=== PATIENT | male | born 1965 | race African-American/Black ===

== ENCOUNTER 2016-10-27 09:06 | Observation (INO) | payer OTHER ==
[~2016-10-27] VITALS: Ht 190.5 cm; Wt 138.8 kg
[~2016-10-27 09:06] MED LIST: AMLODIPINE BESY10 M1 PO; AMLODIPINE BESYL5 M1 PO; BYETTA10 MCG/0.0 SC; GABAPENTIN100 M2 PO; JANUVIA100 M1 PO; LISINOPRIL10 M1 PO; LO-DOSE ASPIRIN81 MG PO; METFORMIN HCL1000 M1 PO; NORVASC2.5 M1 PO; PRAVASTATIN SOD20 M2 PO; SERTRALINE HCL50 MG PO; VITAMIN D2000 UNIT PO; VITAMIN D250000 UNIT PO
--- NOTE | 2016-10-27 09:21 | ED CARDIAC/CP/PALPITATIONS ---
See Addendum History of Present Illness General Chief Complaint: Chest Pain Stated Complaint: CHEST PAIN,DIZZY,SOB Source: patient Exam Limitations: no limitations Allergies Coded Allergies: lisinopril (Severe, ANGIO EDEMA AND LIP SWELLING 05/19/16) atorvastatin (From LIPITOR) (Intermediate, TIRED AND ATTACKS MY BLOOD CELLS 12/30) Triage Note: PT PRESENTS TO ER FOR CHEST PAIN AND SOB. PT ALSO C/O OF DIZZINESS Triage Nurses Notes Reviewed? yes Onset: Gradual Duration: intermittent, months Timing: recent history Quality/Severity: moderate, severe Location: central Radiation: shoulders Activities at Onset: none HPI: 51-year-old male comes into emergency room with complaints of left-sided chest pain has been going on intermittently for the past 3 months. Pain is pleuritic and sharp. Patient reports some associated arm pain at times. Patient has a history of previous ND. Denies any vomiting or diaphoresis. Denies any other associated symptoms. Pain is exertional and worse with any type of ambulation and especially going up stairs. Patient gets associated lightheaded dizziness. (CORINE BROOKE,CARLOS) Vital Signs & Intake/Output Vital Signs & Intake/Output Vital Signs Date Time Temp Pulse Resp B/P Pulse O2 O2 Flow FiO2 Ox Delivery Rate 10/27 1117 85 20 100/00 98 Nasal 2.0L Cannula 10/27 1045 98 Nasal 2.0L Cannula 10/27 1028 81 20 130/100 96 Nasal 2.0L Cannula 10/27 0923 97.6 99 20 132/90 97 Room Air Reconcile Medications Amlodipine Besylate 10 MG TABLET 1 TAB PO DAILY BLOOD PRESSURE Aspirin (Lo-Dose Aspirin EC) 81 MG TABLET. 1 TAB PO D HEART HEALTH ( Reported) Cholecalciferol (Vitamin D3) (Vitamin D) 2,000 UNIT CAPSULE 1 CAP PO DAILY SUPPLEMENT (Reported) Exenatide (Byetta) 10 MCG/0.04 ML PEN.INJCTR 10 MCG SC BID DIABETES (Reported ) Gabapentin 100 MG CAPSULE 1 CAP PO TID PERIPERAL NEUROPATHY (Reported) Gemfibrozil 600 MG TABLET 1 TAB PO BID CHOLESTEROL (Reported) Insulin Glargine,Hum.rec.anlog (Lantus Solostar) 100 UNIT/ML (3 ML) INSULN.PEN 10 UNIT SC QPM DIABETES (Reported) Pravastatin Sodium 20 MG TABLET 1 TAB PO DAILY CHOLESTEROL (Reported) Sertraline HCl 50 MG TABLET 1 TAB PO DAILY DEPRESSION (Reported) (ROGER MCKINNON,JONATHAN) Past History Travel History Traveled to [place] past 21 day No Medical History Any Pertinent Medical History? 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 No (CARLOS DUBOSE) Review of Systems Review of Systems Constitutional: Reports: no symptoms. EENTM: Reports: no symptoms. Respiratory: Reports: see HPI. Cardiovascular: Reports: see HPI. GI: Reports: no symptoms. Genitourinary: Reports: no symptoms. Musculoskeletal: Reports: no symptoms. Skin: Reports: no symptoms. Neurological/Psychological: Reports: no symptoms. Hematologic/Endocrine: Reports: no symptoms. Immunologic/Allergic: Reports: no symptoms. All Other Systems: Reviewed and Negative (CARLOS DUBOSE) Physical Exam Physical Exam General Appearance: well developed/nourished, alert, awake, mild distress Head: atraumatic, normal appearance Eyes: Bilateral: normal appearance, EOMI. Ears, Nose, Throat: normal pharynx, normal ENT inspection Neck: normal inspection, full range of motion Respiratory: normal breath sounds, no respiratory distress Cardiovascular: regular rate/rhythm Back: normal inspection Extremities: normal inspection, normal range of motion Neurologic/Psych: awake, alert, oriented x 3, normal gait, normal mood/affect Skin: intact, normal color Core Measures ACS in differential dx? No Severe Sepsis Present: No Septic Shock Present: No (ACRLOS DUBOSE) Progress Differential Diagnosis: AMI, aortic dissection, atrial fibrillation, CHF/pulm edema, hyperthyroid, hyperventilation, intracranial hemorrhage, musculoskeletal pain, myocarditis, pancreatitis, pericarditis, pneumonia, pneumothorax, pulmonary embolism, PUD/GERD, PVCs/PACs, respiratory failure, rib fracture, sepsis, unstable angina Plan of Care: Orders Procedure Date/time Status Heart Healthy Diet 10/27 D Active Patient Data 10/[address] CHEST WO IV CONTRAST 10/27 1139 Active Vital Signs 10/27 1127 Active Code Status 10/[address] in observation 10/27 1122 Active Add-on Test (ER Only) 10/27 1028 Active EKG 10/27 1026 Active D-DIMER 10/27 09 Complete Intake & Output 10/27 922 Active Telemetry/Ob Tech 10/27 921 Active URINALYSIS 10/27 918 Complete TROPONIN LEVEL 10/27 918 Complete PARTIAL THROMBOPLASTIN TIME 10/27 918 Complete PROTHROMBIN TIME 10/27 918 Complete LIPID PANEL 10/27 918 Complete COMPREHENSIVE METABOLIC PANEL 10/27 918 Complete CBC WITHOUT DIFFERENTIAL 10/27 918 Complete EKG 10/27 906 Active Laboratory Tests 10/27/16 1115: Anion Gap 16, Estimated GFR 49 L, BUN/Creatinine Ratio 17.3, Glucose 360 H, Calcium 9.9, Total Bilirubin 0.5, AST 24, ALT 30, Alkaline Phosphatase 134 H, Troponin I < 0.01, Total Protein 7.4, Albumin 4.2, Globulin 3.2, Albumin/ Globulin Ratio 1.3, Triglycerides 190 H, Cholesterol 210 H, LDL Cholesterol, Calc 131 H, HDL Cholesterol 41, Cholesterol/HDL Ratio 5.1 H 10/27/16 0948: Urine Color YEL, Urine Clarity CLEAR, Urine pH 6.0, Ur Specific Cedar 1.020, Urine Protein TRACE H, Urine Ketones NEG, Urine Nitrite NEG, Urine Bilirubin NEG, Urine Urobilinogen 0.2, Ur Leukocyte Esterase NEG, Ur Microscopic SEDIMENT EXAMINED, Urine WBC RARE, Ur Epithelial Cells FEW, Urine Hemoglobin NEG, Urine Glucose >=1000 H 10/27/16 0926: PT 12.9 H, INR 1.23 H, APTT 35, D-Dimer 213, CBC w Diff NO MAN DIFF REQ, RBC 5.63, MCV 82.0, MCH 26.7 L, RDW 13.0, MPV 9.4, Gran % 44.4, Lymphocytes % 47.2, Monocytes % 3.7, Eosinophils % 1.8, Basophils % 2.9 H, Absolute Granulocytes 3.5, Absolute Lymphocytes 3.7 H, Absolute Monocytes 0.3, Absolute Eosinophils 0.1, Absolute Basophils 0.2, PUBS MCHC 32.6 L Diagnostic Imaging: Viewed by Me: Radiology Read. Discussed w/RAD: Radiology Read. Initial ED EKG: normal intervals, normal p-waves, normal sinus rhythm, rate (82) Repeat EKG: unchanged (CARLOS DUBOSE) Departure Departure Condition: Stable Referrals: LEI CORTES APRN (PCP/Family) Departure Forms: Customer Survey General Discharge Information (CARLOS DUBOSE) Departure Time of Disposition: 1125 Disposition: STILL A PATIENT Clinical Impression Primary Impression: Unstable angina Observation Note Spoke With: WATSON MCKINNON,KARLO Physician Advisor Notified: FELICIANO MCKINNON,ANIYAH Esparza Place Patient In: Non-ED OBS Care Area Rationale for Observation: My rational for observation is as follows [TELE MONITOR, SERIAL EKG, SERIAL TROPONIN, CARDIOLOGY CONSULT, CONSIDER ECHOCARDIOGRAM, STRESS TEST]. PA/VAMP STITCHER Co-Sign Statement Statement: ED Attending supervision documentation- [X] I saw and evaluated the patient. I have also reviewed all the pertinent lab results and diagnostic results. I agree with the findings and the plan of care as documented in the PA's/VAMP STITCHER's documentation. [X] I have reviewed the ED Record and agree with the PA's/VAMP STITCHER's documentation. [] Additions or exceptions (if any) to the PAs/VAMP STITCHER's note and plan are summarized below: [] (ROGER MCKINNON,JONATHAN) Critical Care Note Critical Care Note Critical Care Time: 30-74 min (CARLOS DUBOSE)
[2016-10-27 09:36] LABS: ABSOLUTE BASOPHIL COUNT 0.2 /CUMM (0.0-0.2); ABSOLUTE EOSINOPHIL COUNT 0.1 /CUMM (0.0-0.7); ABSOLUTE GRANULOCYTE CT 3.5 /CUMM (1.4-6.5); ABSOLUTE LYMPH COUNT 3.7 /CUMM (1.2-3.4); ABSOLUTE MONOCYTE COUNT 0.3 /CUMM (0.10-0.60); BASOPHIL % 2.9 % (0.0-2.0); EOSINOPHIL % 1.8 % (0-5); GRANULOCYTE % 44.4 % (42.2-75.2); HEMATOCRIT 46.2 % (42-52); MEAN CORPUSCULAR HGB 26.7 PG (27.0-31.0); MEAN CORPUSCULAR HGB CONC 32.6 G/DL (33.0-37.0); MEAN PLATELET VOLUME 9.4 FL (7.4-10.4); RED BLOOD CELL CT 5.63 /CUMM (4.70-6.10); WHITE BLOOD CELL COUNT 7.8 /CUMM (4.8-10.8)
[2016-10-27 09:52] LABS: PT 12.9 SEC (9.4-12.5); PTT 35 SEC (25-37)
[2016-10-27 09:53] LABS: PLATELET COUNT 429 /CUMM (130-400)
[2016-10-27] MEDS ORDERED: GEMFIBROZIL600 M1 PO (09:55)
[2016-10-27] MEDS ORDERED: LANTUS SOL100 UNIT/1 SC (09:56)
--- NOTE | 2016-10-27 10:18 | RADIOLOGY REPORT ---
EXAMINATION: XR CHEST CLINICAL INFORMATION: Chest pain COMPARISON: Chest x-ray 05/19/2016 TECHNIQUE: PA and lateral views of the chest were obtained. Examination mildly suboptimal secondary to patient body habitus. FINDINGS: The cardiac silhouette is stable in size. Minimal elevation of the right hemidiaphragm. The lungs are adequately aerated. No focal consolidation. No pleural effusion [id number] degenerative changes of the spine. IMPRESSION: No acute cardiopulmonary pathology.
--- NOTE | 2016-10-27 11:25 | Cons- Cardiology ---
PANKAJ MCKINNON,NAOMI Ramirez 10/27/16 1120: General Information and HPI Consulting Request Date of Consult: 10/27/16 Requested By: CARLOS POOL PA-C Reason for Consult: Recurrent chest pain. Source of Information: patient, old records Exam Limitations: poor historian History of Present Illness: Mr. Braxton Fleming is a 51-year-old -Chinese male with a history of obesity, hypertension, dyslipidemia, diabetes mellitus (insulin requiring), chronic kidney disease, previously documented nephrolithiasis, diverticular disease, previous syncope, anxiety disorder, and a vague history of "heart attack" around 2001 who presented this morning with recurrent, frequent ("daily ") episodes of "sharp", severe ("/"), left upper abdominal/left chest pain. On Tuesday (10/22/2016) he did some snow shoveling for neighbors and has had similar, but constant pain since that time. He related these complaints to his aunt and she insisted he seek emergency department evaluation. We previously evaluated Mr. Fleming in the ED (07/21-07/22/2015) for atypical chest discomfort without significant electrocardiographic changes or cardiac enzyme elevation to suggest a cardiac etiology. He was also subsequently admitted to following an episode of angioedema while on VIKAS inhibitor (lisinopril) therapy for his hypertension (05/19-05/22/2016). He did undergo an imaging stress test on 04/10/2013 that revealed no evidence of ischemia. Fixed inferoapical and inferior wall defects were observed consistent with old myocardial infarction. He reports being compliant with outpatient management and feeling generally well until yesterday. Additional past history includes previous bradycardia during his 2014 admission for atypical chest pain felt secondary to pain medications. At that time Mr. fleming also stated that his heart "stopped 3 times" during his "heart attack" in 2001. He was also told he had no heart muscle damage and did not undergo cardiac catheterization. We had planned to see Mr. fleming on an outpatient basis, but he never followed up. Review of Systems Review of Systems: A 14 point system review was obtained, and was noncontributory other than for the fact that the patient wears glasses. 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 Ambulation: independent IADLs Independent: shopping, housework, finances. Exam & Diagnostic Data Vital Signs and I&O Vital Signs Date Time Temp Pulse Resp B/P Pulse O2 O2 Flow FiO2 Ox Delivery Rate 10/27 1117 85 20 100/00 98 Nasal 2.0L Cannula 10/27 1045 98 Nasal 2.0L Cannula 10/27 1028 81 20 130/100 96 Nasal 2.0L Cannula 10/27 0923 97.6 99 20 132/90 97 Room Air Intake & Output 10/27 1600 10/27 0800 10/27 0000 10/26 1600 10/26 0800 10/26 0000 Intake Total Output Total Balance Patient 310 lb Weight Physical Exam: Well-developed, overweight middle-aged -Chinese male in no acute distress with nasal oxygen in place. Vital signs: See above. HEENT: Normocephalic, atraumatic, EOMI, moist mucous membranes. Neck: No JVD, no bruits. Lungs: Clear to auscultation bilaterally. Heart: S1, S2 with no murmur, gallop, rub appreciated. PMI fifth ICS at MCL. Abdomen: Soft, nontender, positive bowel sounds. Extremities: No cyanosis, clubbing, edema. Peripheral pulses: Symmetrical and intact. Diagnostic Data EKG Results (10/27/2016) sinus rhythm, probable old inferior wall, and poor precordial R- wave progression. Minor changes when compared to previous tracing (05/19/2016). CXR Results (10/27/2016) no acute process. Other Results Chest CT (10/27/2016) No evidence of pneumonia, pleural effusion or lymphadenopathy. Subendocardial fat deposition at the apex of the left ventricle from remote myocardial infarction. No acute rib pathology. 0.5 cm noncalcified nodule is present within the left lower lobe. For a low-risk patient, chest CT follow- up may be obtained in 12 months whereas a high risk patient may require chest CT follow-up in 6 months. Diffuse hepatic steatosis. Assessment/Plan Assessment/Plan Mr. Fleming is a middle-aged -Chinese male with a history of obesity, hypertension, dyslipidemia, diabetes mellitus (insulin requiring), chronic kidney disease, previously documented nephrolithiasis, diverticular disease, previous syncope, anxiety disorder, and a vague history of "heart attack" around 2001 who presented this morning with constant and atypical left chest/upper abdominal pain since shoveling snow this passed Tuesday (10/22/2016). Although the pain has atypical features, given his risk equivalent/risk factors for coronary artery disease a period of telemetry observation is reasonable. Recommendations: * Telemetry observation, follow-up electrocardiograms, follow-up troponins. * Continue present cardiac regimen. * Given the atypical nature of his presentation, would hold off on IV heparin at this juncture. * Schedule for an imaging stress test. * Consider endocrine consultation to optimize control of his diabetes mellitus. * DVT prophylaxis. Further recommendations will follow, Thank you. Consult Acknowledgment - Thank you for your consult request. ROGER MCKINNON,JONATHAN 10/27/16 1125: General Information and HPI Allergies/Medications Allergies: Coded Allergies: lisinopril (Severe, ANGIO EDEMA AND LIP SWELLING 05/19/16) atorvastatin (From LIPITOR) (Intermediate, TIRED AND ATTACKS MY BLOOD CELLS 12/30) Home Med List: Amlodipine Besylate 10 MG TABLET 1 TAB PO DAILY BLOOD PRESSURE Aspirin (Lo-Dose Aspirin EC) 81 MG TABLET. 1 TAB PO D HEART HEALTH ( Reported) Cholecalciferol (Vitamin D3) (Vitamin D) 2,000 UNIT CAPSULE 1 CAP PO DAILY SUPPLEMENT (Reported) Exenatide (Byetta) 10 MCG/0.04 ML PEN.INJCTR 10 MCG SC BID DIABETES (Reported ) Gabapentin 100 MG CAPSULE 1 CAP PO TID PERIPERAL NEUROPATHY (Reported) Gemfibrozil 600 MG TABLET 1 TAB PO BID CHOLESTEROL (Reported) Insulin Glargine,Hum.rec.anlog (Lantus Solostar) 100 UNIT/ML (3 ML) INSULN.PEN 10 UNIT SC QPM DIABETES (Reported) Pravastatin Sodium 20 MG TABLET 1 TAB PO DAILY CHOLESTEROL (Reported) Sertraline HCl 50 MG TABLET 1 TAB PO DAILY DEPRESSION (Reported) Exam & Diagnostic Data Vital Signs and I&O Vital Signs Date Time Temp Pulse Resp B/P Pulse O2 O2 Flow FiO2 Ox Delivery Rate 10/27 1117 85 20 100/00 98 Nasal 2.0L Cannula 10/27 1045 98 Nasal 2.0L Cannula 10/27 1028 81 20 130/100 96 Nasal 2.0L Cannula 10/27 0923 97.6 99 20 132/90 97 Room Air Intake & Output 10/27 1600 10/27 0800 10/27 0000 10/26 1600 10/26 0800 10/26 0000 Intake Total Output Total Balance Patient 310 lb Weight Assessment/Plan Consult Acknowledgment - Thank you for your consult request.
--- NOTE | 2016-10-27 12:27 | CT SCAN REPORT ---
EXAMINATION: CT CHEST WITHOUT CONTRAST CLINICAL INFORMATION: Left-sided rib pain. COMPARISON: CXR from 10/27/2016. Abdomen CT from 06/29/2014. TECHNIQUE: Multidetector volumetric CT imaging of the chest was done. Axial MIP volume rendering provided. Sagittal and coronal reformatted images were obtained. DLP: 1045. mGy-cm. FINDINGS: Lungs and pleura: Trachea and central airways are widely patent and normal in caliber. No evidence of endobronchial nodule, mucous plugging or bronchiectasis. 0.2 cm calcified granulomas present within the lingula (image 259, series 4). There is a linear opacity of scarring or discoid atelectasis within the lingula. A noncalcified ovoid, smoothly marginated nodule with average diameter of 0.5 cm is present within the medial basal segment of the left lower lobe (image 300, series 4). This portion of the lung is not included in the [id number] on the abdomen CT from 06/29/2014. No pulmonary mass, consolidation, pleural effusion or pneumothorax. Mediastinum: The esophagus and thyroid gland are unremarkable. The heart size is normal. There is subendocardial fat deposition at the apex of the left ventricle, indicative of remote myocardial infarction. There is moderate atherosclerotic calcification of the left anterior descending coronary artery. Pulmonary arteries are normal in caliber. There is mild atherosclerotic calcification of the aorta. No pericardial effusion. Lymphatics: No pathologic sized axillary, hilar or mediastinal lymph nodes. Upper abdomen: Diffuse hepatic steatosis. Adrenal glands are unremarkable. Chest wall and bones: Symmetric appearance of mild gynecomastia. No acute findings within the degenerated thoracic spine. There is multilevel disc space narrowing, vacuum disc phenomenon and osteophyte formation of the thoracic spine. No suspicious bone lesions. No chest wall mass. No acute, displaced rib fracture or destructive rib lesion. IMPRESSION: 1. No evidence of pneumonia, pleural effusion or lymphadenopathy. 2. Subendocardial fat deposition at the apex of the left ventricle from remote myocardial infarction. 3. No acute rib pathology. 4. 0.5 cm noncalcified nodule is present within the left lower lobe. For a low-risk patient, chest CT follow-up may be obtained in 12 months whereas a high risk patient may require chest CT follow-up in 6 months. 5. Diffuse hepatic steatosis.
--- NOTE | 2016-10-27 13:22 | History & Physical ---
DALLAS GARCIA 10/27/16 1322: General Information and HPI MD Statement: I have seen and personally examined SOBIA TAMEZ and documented this H&P. The patient is a 51 year old M who presented with a patient stated chief complaint of [left upper quadrant abdominal pain]. Source of Information: patient, old records Exam Limitations: poor historian History of Present Illness: Patient is a 51 year old male with PMH of CKD, DM on insulin since 1.5 month, previous OK in 2011, agioedema secondary to lisiopril came with chief complain of chest pain. It is located in the left upper quadrant, pain is sharp/ pinching intermittently and pressure like for most of the time. Patient states that it started in june but worsened over past 2 months. It is also associated with exertional shortness of breath and intermittent cough with no sputum. Patient states that the pain and SOB interfers with his sleep. He has been suggested to have a sleep study done but never did it. Patient also reports of decreased apetite since yesterday, and also feels dizzy. Patient states that his pain is worsesned by eating food. He has a remote hx of acid reflux. denies any nausea, vomiting and has regular bowel movement. Patient is a diabetic since 13 years, ortiz Ruiz, BS at home was over 200 last month and he was switched to insulin and exanitide. 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 Allergies/Medications Allergies: Coded Allergies: lisinopril (Severe, ANGIO EDEMA AND LIP SWELLING 05/19/16) atorvastatin (From LIPITOR) (Intermediate, TIRED AND ATTACKS MY BLOOD CELLS 12/30) Home Med list Amlodipine Besylate 10 MG TABLET 1 TAB PO DAILY BLOOD PRESSURE Aspirin (Lo-Dose Aspirin EC) 81 MG TABLET. 1 TAB PO D HEART HEALTH ( Reported) Cholecalciferol (Vitamin D3) (Vitamin D) 2,000 UNIT CAPSULE 1 CAP PO DAILY SUPPLEMENT (Reported) Exenatide (Byetta) 10 MCG/0.04 ML PEN.INJCTR 10 MCG SC BID DIABETES (Reported ) Gabapentin 100 MG CAPSULE 1 CAP PO TID PERIPERAL NEUROPATHY (Reported) Gemfibrozil 600 MG TABLET 1 TAB PO BID CHOLESTEROL (Reported) Insulin Glargine,Hum.rec.anlog (Lantus Solostar) 100 UNIT/ML (3 ML) INSULN.PEN 10 UNIT SC QPM DIABETES (Reported) Pravastatin Sodium 20 MG TABLET 1 TAB PO DAILY CHOLESTEROL (Reported) Sertraline HCl 50 MG TABLET 1 TAB PO DAILY DEPRESSION (Reported) Sertraline HCl 25 MG TABLET 3 TAB PO DAILY depression Past History Travel History Traveled to [place] past 21 day No Medical History Neurological: NONE EENT: NONE Cardiovascular: hyperlipidemia, myocardial infarction Respiratory: NONE Gastrointestinal: NONE Hepatic: NONE Renal: NONE Musculoskeletal: NONE Psychiatric: anxiety, depression Endocrine: diabetes Blood Disorders: NONE Cancer(s): NONE ALTERATION MANAGER/Reproductive: NONE History of MRSA: No History of VRE: No History of CDIFF: No Pneumonia Vaccine: 04/16/16 Surgical History Surgical History: ART R KNEE Past Family/Social History Family History Relations & Conditions if any FATHER FH: hypertension Psychosocial History Smoking Status: Never Smoked ETOH Use: denies use Functional Ability ADLs Independent: dressing, eating, toileting, bathing. Ambulation: independent IADLs Independent: shopping, housework, finances. Review of Systems Review of Systems Constitutional: Reports: see HPI. Exam & Diagnostic Data Last 24 Hrs of Vital Signs/I&O Vital Signs Date Time Temp Pulse Resp B/P Pulse O2 O2 Flow FiO2 Ox Delivery Rate 10/27 1223 140/92 10/27 1117 85 20 100/00 98 Nasal 2.0L Cannula 10/27 1045 98 Nasal 2.0L Cannula 10/27 1028 81 20 130/100 96 Nasal 2.0L Cannula 10/27 0923 97.6 99 20 132/90 97 Room Air Intake & Output 10/27 1600 10/27 0800 10/27 0000 Intake Total Output Total Balance Patient 140.614 kg Weight Physical Exam General Appearance Alert, Oriented X3, Cooperative, No Acute Distress Skin No Rashes, No Breakdown HEENT Atraumatic Neck Supple Cardiovascular Regular Rate, Normal S1, Normal S2 Lungs Clear to Auscultation, Normal Air Movement Abdomen Normal Bowel Sounds, tenderness over left upper quadrant, abdominal rigidity on left side Neurological Normal Speech Extremities Normal Pulses Last 24 Hrs of Labs/Kwesi: Laboratory Tests 10/27/16 1115: Anion Gap 16, Estimated GFR 49 L, BUN/Creatinine Ratio 17.3, Glucose 360 H, Calcium 9.9, Total Bilirubin 0.5, AST 24, ALT 30, Alkaline Phosphatase 134 H, Troponin I < 0.01, Total Protein 7.4, Albumin 4.2, Globulin 3.2, Albumin/ Globulin Ratio 1.3, Triglycerides 190 H, Cholesterol 210 H, LDL Cholesterol, Calc 131 H, HDL Cholesterol 41, Cholesterol/HDL Ratio 5.1 H 10/27/16 0948: Urine Color YEL, Urine Clarity CLEAR, Urine pH 6.0, Ur Specific [place] 1.020, Urine Protein TRACE H, Urine Ketones NEG, Urine Nitrite NEG, Urine Bilirubin NEG, Urine Urobilinogen 0.2, Ur Leukocyte Esterase NEG, Ur Microscopic SEDIMENT EXAMINED, Urine WBC RARE, Ur Epithelial Cells FEW, Urine Hemoglobin NEG, Urine Glucose >=1000 H 10/27/16 0926: PT 12.9 H, INR 1.23 H, APTT 35, D-Dimer 213, CBC w Diff NO MAN DIFF REQ, RBC 5.63, MCV 82.0, MCH 26.7 L, RDW 13.0, MPV 9.4, Gran % 44.4, Lymphocytes % 47.2, Monocytes % 3.7, Eosinophils % 1.8, Basophils % 2.9 H, Absolute Granulocytes 3.5, Absolute Lymphocytes 3.7 H, Absolute Monocytes 0.3, Absolute Eosinophils 0.1, Absolute Basophils 0.2, PUBS MCHC 32.6 L Diagnostic Data EKG Results (10/27/2016) sinus rhythm, probable old inferior wall, and poor precordial R-wave progression. Minor changes when compared to previous tracing (05/19/2016). CXR Results (10/27/2016) no acute process. Assessment/Plan Assessment: Patient is a 51 year old male with PMH of CKD, DM on insulin since 1.5 month, previous OK in 2011, agioedema secondary to lisiopril came with chief complain of chest pain. It is located in the left upper quadrant, pain is sharp/ pinching intermittently and pressure like for most of the time. Patient states that it started in june but worsened over past 2 months. It is also associated with exertional shortness of breath and intermittent cough with no sputum. Patient states that the pain and SOB interfers with his sleep. He has been suggested to have a sleep study done but never did it. Patient also reports of decreased apetite since yesterday, and also feels dizzy. Patient states that his pain is worsesned by eating food. He has a remote hx of acid reflux. denies any nausea, vomiting and has regular bowel movement. Vitals signs and labs as above EKG: Sinus rhythm, probable old inferior wall infarct, and poor precordial R- wave progression. CT chest: left lung nodule 0.5 cm, hepatic steatosis Problem list 1. CKD 2. DM 3. Chest pain/abdominal pain 4. Depression 5. Hyperlipidemia 6. Hypertension Assesmnet and plan Will admit patient to telemetry unit as tele obs. Patient has been evaluated by cardiology, Dr. Dunaway and will trend his serial troponins and EKGs, Patient scheduled for stress test tomorrow Will get Ct abdomen with oral contrast to evaluate for any underlying pathology. Patient is exquisitely tender in left upper abdominal region. Will obtain lactic acid Patient started on 10 units levemir at bedtime and exenatide. CKD, will encourage oral fluid intake For BP will continue on home dose of amlodipine Will continue on pravastatin, patient allergic to lipitor but ok with pravastatin Will continue home medication for depression DVT ppx SC heprin Patient is Full code As Ranked By This Provider Problem List: 1. Chest pain, unspecified 2. Diabetes Core Measures/Miscellaneous Acute Coronary Syndrome ACS Diagnosis: No Cerebrovascular Accident CVA/TIA Diagnosis: No Congestive Heart Failure CHF Diagnosis: No Venous Thromboembolism VTE Risk Factors: Age > 40 VTE Prophylaxis Ordered Inpt: Mechanical (ALPS/TEDS) No Mech VTE prophylaxis d/t: No contraindications No VTE Pharm Prophylaxis d/t: No contraindications VTE Diagnosis: No VTE Type: NONE VTE Confirmed by (Test): NONE Severe Sepsis Severe Sepsis Present: No Septic Shock Septic Shock Present: No Miscellaneous Documentation Attending Case Discussed With: Barb Johnston MD Primary Care Physician: LEI CORTES APRN Patient sees these Specialists Elizabeth- sand technician Level of Patient Care: Telemetry CARRIE THOMPSON MD 10/27/16 1524: Attending Review Statement Attending Statement Attending Statement: examined this patient, discuss w/resident/PA/TRUCK SAFETY INSPECTOR, agreed w/resident/PA/TRUCK SAFETY INSPECTOR, reviewed EMR data (avail), discussed with nursing, discussed with case mgmt Attending Assessment/Plan: 61-year-old male past medical history of diabetes, coronary artery disease with previous OK questionable in 2001 and hypertension who is here with constant left -sided left upper quadrant/chest pain. Given the atypical history, the index of suspicion for coronary artery disease is low however given his risk factors Dr. Dunaway is recommending a nuclear stress test in a.m. He also has chronic kidney disease and gets angioedema with an VIKAS inhibitor. Will watch his BUN and creatinine, continue his insulin aspirin and statin, rule him out with serial enzymes and follow closely.
--- NOTE | 2016-10-27 16:59 | CT SCAN REPORT ---
EXAMINATION: CT ABDOMEN AND PELVIS WITH CONTRAST CLINICAL INFORMATION: Left upper quadrant abdominal pain. COMPARISON: CT abdomen and pelvis from 06/29/2014 TECHNIQUE: Multidetector volumetric imaging was performed from the superior aspect of the liver through the pubic symphysis following administration of oral contrast. Sagittal and coronal reformatted images were obtained on the technologist's workstation. DLP: 1550 mGy-cm. FINDINGS: LUNG BASES: The visualized lung bases are unremarkable. LIVER, GALLBLADDER, AND BILIARY TREE: Diffuse hepatic steatosis with small area of relative sparing around the gallbladder fossa. No focal hepatic lesion or intrahepatic bile duct dilatation. Gallbladder is unremarkable. PANCREAS: Unremarkable. SPLEEN: Unremarkable. ADRENAL GLANDS: Unremarkable. KIDNEYS AND URETERS: There is chronic bilateral perinephric edema. The kidneys have normal size, cortical thickness and cortical attenuation. A 0.6 cm cortical cyst is present within the mid right kidney. There is a 0.2 cm calculus within the upper pole of the right kidney. No hydroureteronephrosis. BLADDER: Unremarkable. GASTROINTESTINAL TRACT: Stomach is normal. Bowel loops are normal in size. The appendix is normal. There are diverticula of the descending and sigmoid colon without diverticulitis. No ascites or pneumoperitoneum. ABDOMINAL WALL: Unremarkable. LYMPH NODES: No pathologic sized lymph nodes within the abdomen or pelvis. VASCULAR: There is atherosclerotic calcification of the abdominal aorta and iliac arteries without aneurysm. PELVIC VISCERA: Prostate gland is normal in size. No pelvic free fluid. There is calcification of the vas deferens -- a finding often seen in association with diabetes. OSSEOUS STRUCTURES: No acute or suspicious osseous abnormalities. There is extensive paraspinal osteophyte formation of the lower thoracic and upper lumbar spine. IMPRESSION: 1. Colonic diverticulosis without diverticulitis. 2. Diffuse hepatic steatosis. 3. Small, 0.2 cm calyceal stone at the upper pole of the right kidney. No evidence of ureterolithiasis or urinary tract obstruction.
[2016-10-27 19:00] VITALS: BP 150/110
[2016-10-28 00:15] VITALS: BP 120/86
--- NOTE | 2016-10-28 07:20 | PN- Housestaff ---
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 He is alert awake and oriented to time place and person. No acute events noticed overnight. He denies any chest pain, racing of heart, shortness of breath, cough, dizziness or lightheadedness this morning. However he complains left lower quadrant pain 2 out of 10 nonradiating. He looks anxious this morning, willing to talk to the geriatric social work professor and psychiatrist Offers no other complaints. Vitals were stable. Afebrile, heart rate 64, respiratory rate 18, blood pressure 120/80, saturating at 97% on 2 L. Denies any suicidal or homicidal thoughts. Review of Systems Constitutional: Denies: see HPI. Objective Last 24 Hrs of Vital Signs/I&O Vital Signs Date Time Temp Pulse Resp B/P Pulse O2 O2 Flow FiO2 Ox Delivery Rate 10/28 1442 67 132/90 10/28 0835 97.4 56 20 126/100 97 Nasal Cannula 10/28 0015 97.8 64 18 120/86 97 Nasal 2.0L Cannula 10/28 0000 99 Nasal 2.0L Cannula 10/27 1900 98.5 61 16 150/110 98 Nasal 2.0L Cannula 10/27 1819 Nasal 2.0L Cannula 10/27 1743 75 117/83 10/27 1654 98.9 75 18 117/83 98 Intake & Output 10/28 1600 10/28 0800 10/28 0000 Intake Total 120 1140 Output Total 880 Balance -760 1140 Intake, IV 10 Intake, Oral 120 1130 Output, Urine 880 Patient 138.799 kg Weight Physical Exam General Appearance: Alert, Oriented X3, Cooperative, No Acute Distress Skin: No Rashes, No Breakdown HEENT: Atraumatic, Mucous Membr. moist/pink Neck: Supple, No JVD Lymphatic: Cervical nl Cardiovascular: Normal S1, Normal S2 Lungs: Normal Air Movement Abdomen: Normal Bowel Sounds, Soft, No Tenderness Extremities: No Clubbing, No Cyanosis, No Edema Vascular: Normal Pulses Current Medications: Current Medications Sig/Aris Start time Last Medication Dose Route Stop Time Status Admin Acetaminophen 650 MG Q8P PRN 10/27 1430 AC PO Amlodipine Besylate 10 MG DAILY 10/27 1421 AC 10/28 PO 1442 Aspirin Buffered 81 MG DAILY 10/27 1430 AC 10/28 PO 1440 Dipyridamole 60 MG ONE ONE 10/28 0930 AC Dextrose/Water 28 ML IV 10/30 0129 Gabapentin 100 MG TID 10/27 1600 AC 10/28 PO 1441 Gemfibrozil 600 MG BID 10/27 1422 AC 10/28 PO 1441 Heparin Sodium 5,000 UNIT Q8 10/27 2200 AC 10/28 (Porcine) SC 1442 Influenza Virus 0.5 ML ONCE ONE 10/27 1900 DC 10/27 Vaccine IM 10/27 190 2123 Insulin Aspart 0 TIDAC 10/28 1700 CAN SC Insulin Aspart 0 TIDAC 10/28 1700 AC SC Insulin Aspart 0 TIDAC 10/28 0800 DC SC Insulin Aspart 0 TIDAC 10/27 1900 DC 10/27 SC 1849 Insulin Detemir 10 UNITS AT BEDTIME 10/27 2200 AC 10/27 SC 2121 Insulin Human Regular 0 Q6 10/28 0845 DC 10/28 SC 0852 Patient Medication 1 ED .STK-MED ONE 10/28 1355 DC Teaching ED 10/28 1356 Pravastatin Sodium 20 MG 1700 10/27 1700 AC 10/27 PO 1743 Sertraline HCl 75 MG DAILY 10/29 1000 AC PO Sertraline HCl 75 MG ONCE ONE 10/28 1415 DC PO 10/28 1416 Sertraline HCl 50 MG DAILY 10/27 1424 DC 10/27 PO 1743 Last 24 Hrs of Lab/Kwesi Results Last 24 Hrs of Labs/Mics: Laboratory Tests 10/27/16 2240: Troponin I < 0.01 10/27/16 2240: Lactic Acid 1.2 10/27/16 1700: Troponin I 0.01 Assessment/Plan Assessment: This is a 51-year-old male with past medical history significant for obesity, hypertension, diabetes mellitus, peripheral neuropathy, hyperlipidemia, depression, anxiety, chronic kidney disease, nephrolithiasis, history of diverticular disease, syncopal episode in the past, heart attack in 2001, presented to the [facility] emergency department with chief complaint of chest pain on and off for 3 months. Left sided chest pain, sharp, 10 out of 10, radiating to left upper quadrant, associated with the dizziness and shortness of breath. Increased frequency of episodes since last Tuesday after shoveling snow. Of note patient was admitted at [facility] in May for lisinopril induced angioedema. Stress test was done in March 2013-no ischemia was found, fixed infero apical and inferior wall defects were seen. Vitals on admission afebrile, heart rate 99, respiratory rate 20, blood pressure 132/90, saturating at 96% on 2 L oxygen. CBC normal. BUN 26 and creatinine 1.5. Glucose 360 on admission First set of troponins and EKG were negative Chest x-ray was normal CAT scan chest showed IMPRESSION: 1. No evidence of pneumonia, pleural effusion or lymphadenopathy. 2. Subendocardial fat deposition at the apex of the left ventricle from remote myocardial infarction. 3. No acute rib pathology. 4. 0.5 cm noncalcified nodule is present within the left lower lobe. For a low-risk patient, chest CT follow-up may be obtained in 12 months whereas a high risk patient may require chest CT follow-up in 6 months. 5. Diffuse hepatic steatosis. Problem list 1. Chest pain-rule out ACS 2. Hypertension 3. Diabetes mellitus 4. Peripheral neuropathy 5. Hyperlipidemia 6. Depression 7. Chronic kidney disease 8. Previous history of heart attack? Chest pain Patient presented with chest pain ongoing for 3 months. Left-sided, 10 out of 10, sharp, radiating to left upper quadrant, associated with shortness of breath and dizziness. However he reports worsening chest pain since last Tuesday after shoveling snow. EKG and troponins were negative on admission. Chest x-ray was clear. CAT scan chest was clear. * Admitted to telemetry floor for further monitoring. * He is under 24-hour observation. * Monitoring vitals every shift. * Maintain oxygen saturation above 92%. * Provide supplemental oxygen if necessary. * Serial troponins and EKGs negative * Health Economist Dr. Dunaway on board. * Recommended stress test - SECOND PART PENDING. * Continue aspirin 81 mg daily STRESS TEST FIRST PART IMPRESSION: No definite perfusion abnormalities are present. Some decreased activity in the inferior wall is likely due to attenuation by the adjacent diaphragm. Left ventricular wall motion and ejection fraction are normal. Left upper quadrant pain * Ongoing left upper quadrant pain for 3 months. * History of diverticular disease * remote history of GERD. * However not on any medication. * CAT scan abdomen with oral contrast. 1. Colonic diverticulosis without diverticulitis. 2. Diffuse hepatic steatosis. 3. Small, 0.2 cm calyceal stone at the upper pole of the right kidney. No evidence of ureterolithiasis or urinary tract obstruction. * Tylenol for pain Chronic kidney disease * BUN 26 and creatinine 1.5 on admission. * Of note patient's creatinine 1.7 during last admission * Encourage fluid intake * Avoid nephrotoxins * Avoid lisinopril-remote history of lisinopril induced angioedema Hypertension Continue home dose of amlodipine 10 mg Diabetes mellitus Glucose 360 on admission. Patient was on diabetic medication since 2 months. Takes exenatide and Lantus at home. * Accu-Cheks before each meal. * Levemir 10 units at bedtime. * On insulin sliding scale Peripheral neuropathy Continue home dose of gabapentin 100 mg 3 times a day. Hyperlipidemia Continue pravastatin home dose Continue gemfibrozil Depression Continue sertraline home dose Patient is full code DVT prophylaxis subcutaneous heparin Heart healthy diet Mild to moderate pain pathway tylinol Problem List: 1. Chest pain, unspecified 2. Hypertension 3. Diabetes Pain Ratin Pain Location: Left lower abdomen Pain Goal: Remain pain free Pain Plan: Tylenol Tomorrow's Labs & Rationales: None JAY MCKINNON,CARRIE 10/28/16 1509: Attending MD Review Statement Attending Statement Attending MD Statement: examined this patient, discuss w/resident/PA/FOUNDATION RELATIONS MANAGER, agreed w/resident/PA/FOUNDATION RELATIONS MANAGER, reviewed EMR data (avail), discussed with nursing, discussed with case mgmt Attending Assessment/Plan: 51-year-old male with past medical history of diabetes, coronary artery disease was here with atypical chest pain. He finished the first part of his stress test this morning and is going to have his second part later today. He was very anxious requesting to speak to psych and social work. He has been seen by the psychiatry CRIMPER OPERATOR who increased his Zoloft and gave him an outpatient psychiatry appointment. We'll also make sure the social work sees him.
[2016-10-28 08:35] VITALS: BP 126/100
--- NOTE | 2016-10-28 10:21 | Cons- Psychiatry ---
Psychiatric Consult Date of Consult: 10/28/16 Reason for Consult: "Depressed" History of Present Illness: 51-year-old male presented to the ED on 10/27/2016 at 0922 with a chief complaint of chest pain. He previously presented in May 2016. He was admitted for evaluation of chest pain. The patient is treated for diabetes mellitus by his primary care provider, Sara Parsons APRN, at [facility], [place]. She also treats the patient for depression; patient is currently on sertraline 50 mg daily, but is not receiving psychotherapy. Allergies: Coded Allergies: lisinopril (Severe, ANGIO EDEMA AND LIP SWELLING 05/19/16) atorvastatin (From LIPITOR) (Intermediate, TIRED AND ATTACKS MY BLOOD CELLS 12/30) Current Medications: Current Medications Sig/Aris Start time Last Medication Dose Route Stop Time Status Admin Acetaminophen 650 MG Q8P PRN 10/27 1430 AC PO Amlodipine Besylate 10 MG DAILY 10/27 1421 AC 10/27 PO 1743 Aspirin Buffered 81 MG DAILY 10/27 1430 AC PO Dipyridamole 60 MG ONE ONE 10/28 0930 AC Dextrose/Water 28 ML IV 10/30 0129 Gabapentin 100 MG TID 10/27 1600 AC 10/27 PO 2121 Gemfibrozil 600 MG BID 10/27 1422 AC 10/27 PO 2121 Heparin Sodium 5,000 UNIT Q8 10/27 2200 AC 10/28 (Porcine) SC 0604 Influenza Virus 0.5 ML ONCE ONE 10/27 1900 DC 10/27 Vaccine IM 10/27 1901 2123 Insulin Aspart 0 TIDAC 10/28 1700 AC SC Insulin Aspart 0 TIDAC 10/28 0800 DC SC Insulin Aspart 0 TIDAC 10/27 1900 DC 10/27 SC 1849 Insulin Detemir 10 UNITS AT BEDTIME 10/27 2200 10/27 SC 2121 Insulin Human Regular 0 Q6 10/28 0845 MS 10/28 MO 0852 Patient Medication 1 ED .STK-MED ONE 10/28 1355 DC Teaching ED 10/28 1356 Pravastatin Sodium 20 MG 1700 10/27 1700 AC 10/27 PO 1743 Sertraline HCl 75 MG DAILY 10/29 1000 AC PO Sertraline HCl 50 MG DAILY 10/27 1424 DC 10/27 PO 1743 Past History Past Medical History Neurological: NONE EENT: NONE Cardiovascular: hyperlipidemia, myocardial infarction Respiratory: NONE Gastrointestinal: NONE Hepatic: NONE Renal: NONE Musculoskeletal: NONE Psychiatric: anxiety, depression Endocrine: diabetes Blood Disorders: NONE Cancer(s): NONE 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 Past Surgical History Surgical History: ART R KNEE Psychosocial History Strengths/Capabilities: Strong moral beliefs Psychiatric Treatment History Psych Treatment Psychiatric Treatment Yes Inpatient Treatment No Outpatient Treatment Yes Location of Treatment [facility], [place] Reason for Treatment Depression Dates of Treatment currently in treatment Response to Treatment Unknown Diagnosis: Depression Risk Factors: lives alone, male Substance Use/Abuse History Drug Use/Abuse Substances Used/Abused No (denies) Substance Abuse Treatment Substance Abuse Treatment Past Substance Abuse [place] No (denies) Assessment/Plan Mental Status Mental Status Exam: The patient is lying calmly in his bed, he is alert and oriented. He denies AVH, and presents no travon delusions. He denies suicidal or homicidal ideation. He reports that suicidal thoughts come to him, but resolve as soon as he listens to music, or busies himself with hobbies, exercise, etc. He denies ever having intent or a plan. He reports that a female friend of his committed suicide 5 years ago. He had been talking to her throughout a difficult time in her life, and may feel partly responsible for not saving her. He reports he feels safe here and at home. He feels that he is peaceful, and never wants to hurt anyone, but feels that people take advantage of him, or are rude. "If someone does something bad, I can forgive them. I have difficulty with trust now." He states that his depression began 13 years ago, when he had a heart attack while in the hospital ("My heart stopped three times that night.") At that time, he was diagnosed with diabetes. The patient reports he carries a bag like a shaman, and has a ritual, wherein he cannot leave the house unless he has a particular item in his pocket, "I'm superstitious." He reports that he has buddhas in every room of his aprtment, and professes belief in methodist. He listens to 50s, 60s and 70s music, which calms him. He collects toys, has just started to draw again. Braxton reports he is a loner, but is starting to get out more. He has studied several forms of martial arts, and has weightlifted for years. Denies use of alcohol or street/rec drugs. Lab Results: Laboratory Tests 10/27 10/27 2240 2240 Chemistry Lactic Acid (0.7 - 2.1 mmol/L) 1.2 Troponin I (<0.11 ng/ml) < 0.01 Diffential Diagnosis: Major depressive disorder, recurrent, moderate Bereavement disorder Rule out obsessive-compulsive disorder Impression: The patient is a 51 y.o. AA male, presenting with CC of chest pain, and is being worked up by the telemetry unit team, including cardiology. He is to have a stress test today, and if negative, he will discharge today. PSHx: The patient is the oldest of 7 children, and grew up in [place], [place], living there until 1974. He lived in [facility] beginning in [place], moving to [facility] in 2007. Most of his family is in [facility] and [facility] , but he does not see them very often. 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 His unemployment ran out after 6 months, and he has used his 401k funds for living. PFHx: No known family psych history He is in agreement to come to [facility], and an appointment has been arranged for him. He is also in agreement to increase Zoloft, which has plateaued in effect, and has not been increased at least since the beginning of last year. Provisional Treatment Plan: 1. Outpatient psychiatry intake appointment on Tuesday, November 10, 2016, at 1015, at [address] [place] [id number]. Bring photo ID and insurance card. Patient's phone number is [phone] 2. Consider increasing sertraline/Zoloft to 75 mg PO daily. Complete note to follow We will continue to follow along. Rohith Peters APRN
--- NOTE | 2016-10-28 11:16 | Patient Discharge Instructions ---
Discharge Instructions General Discharge Information You were seen/treated for: CHEST PAIN- RULED OUT ACS You had these procedures: NUCLEAR STRESS TSET Watch for these problems: CHEST PAIN SHORT OF BREATH Special Instructions: Outpatient psychiatry intake appointment on Thursday, November 10, 2016, at 10.15, at [address] [place] [address]. Bring photo ID and insurance card. - FOLLOW UP PRIMARY CARE DOCTOR IN 1-2 WEEKS. -follow up diesel retrofit designer, dr abram pepper in one week. Diet Recommended Diet: Diabetic Activity Full Activity/No Limits: Yes Acute Coronary Syndrome Inclusion Criteria At DC or during hospital stay patient has or had the following: ACS DIAGNOSIS No Discharge Core Measures Meds if any: Prescribed or Continued at Discharge Meds if any: NOT Prescribed or Continued at Discharge Congestive Heart Failure Inclusion Criteria At DC or during hospital stay patient has or had the following: CHF DIAGNOSIS No Discharge Core Measures Meds if any: Prescribed or Continued at Discharge Meds if any: NOT Prescribed or Continued at Discharge Cerebrovascular accident Inclusion Criteria At DC or during hospital stay patient has or had the following: CVA/TIA Diagnosis No Discharge Core Measures Meds if any: Prescribed or Continued at Discharge Meds if any: NOT Prescribed or Continued at Discharge Venous thromboembolism Inclusion Criteria VTE Diagnosis No VTE Type NONE VTE Confirmed by (Test) NONE Discharge Core Measures - Per Current guidelines, there needs to be overlap - treatment for the first 5 days of Warfarin therapy. - If discharged on Warfarin prior to 5 days of - overlap therapy, the patient will need to be - assessed for post discharge needs including - *Post discharge parental anticoagulation - *Warfarin and/or parental anticoagulation education - *Follow up date to check INR post discharge At least 5 days overlap therapy as Inpatient No Meds if any: Prescribed or Continued at Discharge Note: Overlap Therapy is Warfarin and Anticoagulant Meds if any: NOT Prescribed or Continued at Discharge
[2016-10-28] MEDS ORDERED: SERTRALINE HCL25 MG PO (11:49)
--- NOTE | 2016-10-28 13:25 | NUCLEAR MEDICINE REPORT ---
PERSANTINE STRESS SPECT MYOCARDIAL PERFUSION IMAGING STUDY WITH GATED SPECT IMAGES: CLINICAL INDICATION: Myocardial infarction PROCEDURE: Regional myocardial perfusion was assessed using a 1 day protocol. Stress images were obtained on 10/28/2016 following the intravenous administration of 51.7 mCi Tc 99m Myoview. Stress consisted of 60 mg Persantine given intravenously. Following the sestamibi injection no aminophylline was given intravenously. Rest images were not obtained. Single photon emission tomographic (SPECT) images were obtained. SPECT images were acquired in a 64 x 64 matrix of 64 projections over 180 degrees. These were reconstructed into standard short axis, horizontal and vertical long axis cardiac projections. FINDINGS: The post stress images demonstrate the left ventricular chamber to be normal in size. There is a very mild diffuse decrease in activity in the inferior wall. This may be due to 2 attenuation by the adjacent diaphragm, and the latter can be visualized on review of the raw acquired projections. The images were obtained using a gated SPECT technique, which permits visualization of wall motion and calculation of the left ventricular ejection fraction. No left ventricular wall motion abnormalities are noted noted. In particular there is excellent motion of the inferior wall. The calculated left ventricular ejection fraction is 57% on the stress study. Compared to the previous study dated 04/12/2013, the perfusion appears similar. The gated images from the previous study are not available for review and the wall motion cannot be compared. Ejection fraction is slightly higher on the current study than previously when it was 50%. IMPRESSION: No definite perfusion abnormalities are present. Some decreased activity in the inferior wall is likely due to attenuation by the adjacent diaphragm. Left ventricular wall motion and ejection fraction are normal.
[2016-10-28 15:30] VITALS: BP 122/60
--- NOTE | 2016-10-28 16:45 | PN- Att Addend ---
Attending Addendum Attending Brief Note Dr. Dunaway and I both spoke to the patient together. We explained that the stress images look okay and the rest images will only be done at 9:30 AM tomorrow. We also explained to him that given that the stress images are negative our index of suspicion for active cardiac ischemia is low and given that he didn't have the transient dilatation that is typically seen with ischemia . However he is very anxious. He understands his risk factors and he feels much more comfortable staying here and getting his rest images. He feels like if he goes home he'll be to anxious without having completed the second part of his stress test. I spoke to the case packer and sealer and we are going to extend the obs, he is going to get the second part of his rest images tomorrow 9:30 AM. If they are negative will discharge him.
--- NOTE | 2016-10-28 16:52 | PN- Cardiology ---
Subjective Subjective: Feels better overall, but still has some mild left upper quadrant/left chest discomfort. Objective Vital Signs and I&Os Vital Signs Date Time Temp Pulse Resp B/P Pulse O2 O2 Flow FiO2 Ox Delivery Rate 10/28 1530 97.6 67 20 122/60 95 Nasal 2.0L Cannula 10/28 1442 67 132/90 10/28 0835 97.4 56 20 126/100 97 Nasal Cannula 10/28 0800 97 Nasal 2.0L Cannula 10/28 0015 97.8 64 18 120/86 97 Nasal 2.0L Cannula 10/28 0000 99 Nasal 2.0L Cannula 10/27 1900 98.5 61 16 150/110 98 Nasal 2.0L Cannula 10/27 1819 Nasal 2.0L Cannula 10/27 1743 75 117/83 10/27 1654 98.9 75 18 117/83 98 Intake & Output 10/28 1600 10/28 0800 10/28 0000 10/27 1600 10/27 0800 10/27 0000 Intake Total 638 307 4951 Output Total 880 Balance 480 -760 1140 Intake, IV 10 Intake, Oral 915 469 8282 Output, Urine 880 Patient 306 lb 310 lb Weight Physical Exam: Well-developed, overweight middle-aged -[place] male in no acute distress with nasal oxygen in place. Vital signs: See above. HEENT: Normocephalic, atraumatic, EOMI, moist mucous membranes. Neck: No JVD, no bruits. Lungs: Clear to auscultation bilaterally. Heart: S1, S2 with no murmur, gallop, rub appreciated. PMI fifth ICS at MCL. Abdomen: Soft, nontender, positive bowel sounds. Extremities: No cyanosis, clubbing, edema. Peripheral pulses: Symmetrical and intact. Current Medications: Current Medications Sig/Aris Start time Last Medication Dose Route Stop Time Status Admin Acetaminophen 650 MG Q8P PRN 10/27 1430 AC PO Amlodipine Besylate 10 MG DAILY 10/27 1421 AC 10/28 PO 1442 Aspirin Buffered 81 MG DAILY 10/27 1430 AC 10/28 PO 1440 Dipyridamole 60 MG ONE ONE 10/28 0930 AC Dextrose/Water 28 ML IV 10/30 0129 Gabapentin 100 MG TID 10/27 1600 AC 10/28 PO 1441 Gemfibrozil 600 MG BID 10/27 1422 AC 10/28 PO 1441 Heparin Sodium 5,000 UNIT Q8 10/27 2200 AC 10/28 (Porcine) SC 1442 Influenza Virus 0.5 ML ONCE ONE 10/27 1900 DC 10/27 Vaccine IM 10/27 Insulin Aspart 0 TIDAC 10/28 1700 CAN SC Insulin Aspart 0 TIDAC 10/28 1700 AC SC Insulin Aspart 0 TIDAC 10/28 0800 DC SC Insulin Aspart 0 TIDAC 10/27 1900 DC 10/27 SC 1849 Insulin Detemir 10 UNITS AT BEDTIME 10/27 2200 AC 10/27 SC 2121 Insulin Human Regular 0 Q6 10/28 0845 DC 10/28 SC 0852 Patient Medication 1 ED .STK-MED ONE 10/28 1355 DC Teaching ED 10/28 1356 Pravastatin Sodium 20 MG 1700 10/27 1700 AC 10/27 PO 1743 Sertraline HCl 75 MG DAILY 10/29 1000 AC PO Sertraline HCl 75 MG ONCE ONE 10/28 1415 DC PO 10/28 1416 Sertraline HCl 50 MG DAILY 10/27 1424 DC 10/27 PO 1743 Results Last 48 Hrs of Labs/Mics: Laboratory Tests 10/27/16 2240: Troponin I < 0.01 10/27/16 2240: Lactic Acid 1.2 10/27/16 1700: Troponin I 0.01 10/27/16 1436: Lactic Acid Cancelled 10/27/16 1115: Lactic Acid 1.9 10/27/16 1115: Anion Gap 16, Estimated GFR 49 L, BUN/Creatinine Ratio 17.3, Glucose 360 H, Calcium 9.9, Total Bilirubin 0.5, AST 24, ALT 30, Alkaline Phosphatase 134 H, Troponin I < 0.01, Total Protein 7.4, Albumin 4.2, Globulin 3.2, Albumin/ Globulin Ratio 1.3, Triglycerides 190 H, Cholesterol 210 H, LDL Cholesterol, Calc 131 H, HDL Cholesterol 41, Cholesterol/HDL Ratio 5.1 H 10/27/16 0948: Urine Color YEL, Urine Clarity CLEAR, Urine pH 6.0, Ur Specific [place] 1.020, Urine Protein TRACE H, Urine Ketones NEG, Urine Nitrite NEG, Urine Bilirubin NEG, Urine Urobilinogen 0.2, Ur Leukocyte Esterase NEG, Ur Microscopic SEDIMENT EXAMINED, Urine WBC RARE, Ur Epithelial Cells FEW, Urine Hemoglobin NEG, Urine Glucose >=1000 H 10/27/16 0926: PT 12.9 H, INR 1.23 H, APTT 35, D-Dimer 213, CBC w Diff NO MAN DIFF REQ, RBC 5.63, MCV 82.0, MCH 26.7 L, RDW 13.0, MPV 9.4, Gran % 44.4, Lymphocytes % 47.2, Monocytes % 3.7, Eosinophils % 1.8, Basophils % 2.9 H, Absolute Granulocytes 3.5, Absolute Lymphocytes 3.7 H, Absolute Monocytes 0.3, Absolute Eosinophils 0.1, Absolute Basophils 0.2, PUBS MCHC 32.6 L Recent Imaging Studies: Pharmacologic stress test (10/28/2016) No definite perfusion abnormalities are present. Some decreased activity in the inferior wall is likely due to attenuation by the adjacent diaphragm. Left ventricular wall motion and ejection fraction are normal. Assessment/Plan Assessment/Plan Mr. Ramirez is a middle-aged -[place] male with a history of obesity, hypertension, dyslipidemia, diabetes mellitus (insulin requiring), chronic kidney disease, previously documented nephrolithiasis, diverticular disease, previous syncope, anxiety disorder, and a vague history of "heart attack" around 2001 who presented this morning with constant and atypical left chest/upper abdominal pain since shoveling snow this past Tuesday (10/22/2016). Although the pain has atypical features, given his risk equivalent/risk factors for coronary artery disease he was placed on telemetry and fortunately ruled out for myocardial necrosis by serial cardiac enzymes and has had no worrisome electrocardiographic changes. Reassuring, were the results of this mornings stress images that were negative for ischemia. There was, however, evidence of probable diaphragmatic attenuation. Since the patient remains very concerned about his presenting symptoms, the rest images will be performed to confirm diaphragmatic attenuation. Although he previously had documented bradycardia, his heart rate has been acceptable this admission. Continue on telemetry overnight to help exclude significant bradycardia. We will continue this present cardiac regimen. Anticipate discharge in the morning. Continue telemetry? Yes (previous bradycardia.)
[2016-10-29 00:15] VITALS: BP 126/60
--- NOTE | 2016-10-29 07:38 | PN- Housestaff ---
ESTER PETERSON 10/29/16 0738: Subjective Follow-up For: Atypical chest pain s/p stress test Complaints: pain scale (0-10) Tele-Events Since Last Visit: Sinus rhythm Sinus bradycardia Rate 57-66 No acute events noticed on manager monitoring Subjective: Patient was seen and examined this morning. He is alert awake and oriented to time place and person. No acute events noticed overnight. He denies any chest pain, racing of heart, shortness of breath, cough, dizziness or lightheadedness this morning. However he complains left lower quadrant pain 3 out of 10, nonradiating. Relieved with percocet. Offers no other complaints. Vitals were stable. Afebrile, heart rate 68, respiratory rate 20, blood pressure 126/60, saturating at 95 on room air. Denies any suicidal or homicidal thoughts. waiting to go for second part of stress test this morning. Review of Systems Constitutional: Denies: chills. Objective Last 24 Hrs of Vital Signs/I&O Vital Signs Date Time Temp Pulse Resp B/P Pulse O2 O2 Flow FiO2 Ox Delivery Rate 10/29 0810 98.2 72 18 122/80 96 Room Air 10/29 0800 96 Room Air 10/29 0015 98.1 68 20 126/60 95 Room Air 10/28 2250 97 Room Air 10/28 2000 Nasal 2.0L Cannula 10/28 1530 97.6 67 20 122/60 95 Nasal 2.0L Cannula 10/28 1442 67 132/90 Intake & Output 10/29 1600 10/29 0800 10/29 0000 Intake Total 250 120 Output Total 825 Balance 250 -705 Intake, IV 0 Intake, Oral 250 120 Number 0 Bowel Movements Output, Urine 825 Physical Exam General Appearance: Alert, Oriented X3, Cooperative, No Acute Distress Skin: No Rashes, No Breakdown HEENT: Atraumatic, Mucous Membr. moist/pink Neck: Supple, No JVD Lymphatic: Cervical nl Cardiovascular: Normal S1, Normal S2, No Murmurs Lungs: Normal Air Movement Abdomen: Normal Bowel Sounds, Soft, No Tenderness Extremities: No Clubbing, No Cyanosis, No Edema Vascular: Normal Pulses, Pulses Symmetrical Current Medications: Current Medications Sig/Aris Start time Last Medication Dose Route Stop Time Status Admin Acetaminophen 650 MG Q8P PRN 10/27 1430 AC PO Amlodipine Besylate 10 MG DAILY 10/27 1421 AC 10/28 PO 1442 Aspirin Buffered 81 MG DAILY 10/27 1430 AC 10/28 PO 1440 Dipyridamole 60 MG ONE ONE 10/28 0930 AC Dextrose/Water 28 ML IV 10/30 0129 Gabapentin 100 MG TID 10/27 1600 AC 10/28 PO 2117 Gemfibrozil 600 MG BID 10/27 1422 AC 10/28 PO 2117 Heparin Sodium 5,000 UNIT Q8 10/27 2200 AC 10/29 (Porcine) HI 0541 Insulin Aspart 0 TIDAC 10/28 1700 CAN SC Insulin Aspart 0 TIDAC 10/28 1700 AC 10/28 SC 1734 Insulin Detemir 10 UNITS AT BEDTIME 10/27 220 AC 10/28 HI 2117 Insulin Human Regular 0 Q6 10/28 0845 DC 10/28 HI 0852 Oxycodone/ 1 TAB ONCE ONE 10/29 0415 DC 10/29 Acetaminophen PO 10/29 0416 0411 Patient Medication 1 ED .STK-MED ONE 10/28 1355 DC Teaching ED 10/28 1356 Pravastatin Sodium 20 MG 1700 10/27 1700 AC 10/28 PO 1733 Sertraline HCl 75 MG DAILY 10/29 1000 AC PO Sertraline HCl 75 MG ONCE ONE 10/28 1415 DC 10/28 PO 10/28 1416 1733 Sertraline HCl 50 MG DAILY 10/27 1424 DC 10/27 PO 1743 Assessment/Plan Assessment: This is a 51-year-old male with past medical history significant for obesity, hypertension, diabetes mellitus, peripheral neuropathy, hyperlipidemia, depression, anxiety, chronic kidney disease, nephrolithiasis, history of diverticular disease, syncopal episode in the past, heart attack in 2001, presented to the [facility] emergency department with chief complaint of chest pain on and off for 3 months. Left sided chest pain, sharp, 10 out of 10, radiating to left upper quadrant, associated with the dizziness and shortness of breath. Increased frequency of episodes since last Tuesday after shoveling snow. Of note patient was admitted at [facility] in May for lisinopril induced angioedema. Stress test was done in March 2013-no ischemia was found, fixed infero apical and inferior wall defects were seen. Vitals on admission afebrile, heart rate 99, respiratory rate 20, blood pressure 132/90, saturating at 96% on 2 L oxygen. CBC normal. BUN 26 and creatinine 1.5. Glucose 360 on admission First set of troponins and EKG were negative Chest x-ray was normal CAT scan chest showed IMPRESSION: 1. No evidence of pneumonia, pleural effusion or lymphadenopathy. 2. Subendocardial fat deposition at the apex of the left ventricle from remote myocardial infarction. 3. No acute rib pathology. 4. 0.5 cm noncalcified nodule is present within the left lower lobe. For a low-risk patient, chest CT follow-up may be obtained in 12 months whereas a high risk patient may require chest CT follow-up in 6 months. 5. Diffuse hepatic steatosis. Problem list 1. Chest pain-rule out ACS 2. Hypertension 3. Diabetes mellitus 4. Peripheral neuropathy 5. Hyperlipidemia 6. Depression 7. Chronic kidney disease 8. Previous history of heart attack? Chest pain Patient presented with chest pain ongoing for 3 months. Left-sided, 10 out of 10, sharp, radiating to left upper quadrant, associated with shortness of breath and dizziness. However he reports worsening chest pain since last Tuesday after shoveling snow. EKG and troponins were negative on admission. Chest x-ray was clear. CAT scan chest was clear. * Admitted to telemetry floor for further monitoring. * He is under 24-hour observation. * Monitoring vitals every shift. * Maintain oxygen saturation above 92%. * Provide supplemental oxygen if necessary. * Serial troponins and EKGs negative * Grain Drier Operator Dr. Dunaway on board. * Recommended stress test * Continue aspirin 81 mg daily STRESS TEST FIRST PART IMPRESSION: No definite perfusion abnormalities are present. Some decreased activity in the inferior wall is likely due to attenuation by the adjacent diaphragm. Left ventricular wall motion and ejection fraction are normal. * stress images that were negative for ischemia. * waiting for the rest images. Left upper quadrant pain * Ongoing left upper quadrant pain for 3 months. * History of diverticular disease * remote history of GERD. * However not on any medication. * CAT scan abdomen with oral contrast. 1. Colonic diverticulosis without diverticulitis. 2. Diffuse hepatic steatosis. 3. Small, 0.2 cm calyceal stone at the upper pole of the right kidney. No evidence of ureterolithiasis or urinary tract obstruction. * Tylenol for pain. Chronic kidney disease * BUN 26 and creatinine 1.5 on admission. * Of note patient's creatinine 1.7 during last admission * Encourage fluid intake * Avoid nephrotoxins * Avoid lisinopril-remote history of lisinopril induced angioedema Hypertension Continue home dose of amlodipine 10 mg Diabetes mellitus Glucose 360 on admission. Patient was on diabetic medication since 2 months. Takes exenatide and Lantus at home. * Accu-Cheks before each meal. * Levemir 10 units at bedtime. * On insulin sliding scale. * glucose 120 this morning. Peripheral neuropathy Continue home dose of gabapentin 100 mg 3 times a day. Hyperlipidemia Continue pravastatin home dose Continue gemfibrozil Depression Continue sertraline home dose Patient is full code DVT prophylaxis subcutaneous heparin Heart healthy diet Mild to moderate pain pathway tylinol Problem List: 1. Diabetes 2. Hypertension 3. Chest pain, unspecified Pain Ratin Pain Location: left sided abdominal pain Pain Goal: Pain 4 or less Pain Plan: tylinol Tomorrow's Labs & Rationales: none CARRIE THOMPSON MD 10/29/16 0955: Attending MD Review Statement Attending Statement Attending MD Statement: examined this patient, discuss w/resident/PA/SUPERVISOR CELL EFFICIENCY, agreed w/resident/PA/SUPERVISOR CELL EFFICIENCY, reviewed EMR data (avail), discussed with nursing, discussed with case mgmt Attending Assessment/Plan: Patient is feeling okay. He scheduled to go down for his rest images of the nuclear stress test shortly. If the rest images are negative he will leave today. He is a 51-year-old with diabetes, hypertension on Norvasc (he had angioedema with the VIKAS inhibitor in May). His heart rate was on the low side in the 60s to 70s so we did not start him on a beta leslie. He is going to have outpatient follow-up with his PCP, psychiatry and will set him up with cardiology.
[2016-10-29 08:10] VITALS: BP 122/80
[2016-10-29 15:54] VITALS: BP 150/90
--- NOTE | 2016-10-29 17:00 | IV DIPYRIDAMOLE NUCLEAR STRESS ---
Clinical Diagnosis: Myocardial Infarction Biostatistics Professor: Cynthia Nick IV DIPYRIDAMOLE INFUSED: 60 mg IV AMINOPHYLLINE INFUSED: 0 mg PATIENT WEIGHT: 310 lbs INTERPRETATION: The patient's baseline EKG showed normal sinus rhythm with Q wave in Lead III at 61 BPM. Baseline B/P 110/76. The patient received 60 mg of dipyridamole infused intravenously over a 4 minute period. TC-99M or Myoview was injected after dipyridamole infusion. The patient complained of chest tightness and headache. There were no EKG changes seen following pharmacologic infusion. Arrhythmias: None IMPRESSION: The test was supervised by the interpreting Wheel Presser, who was in attendance during the entire test. No EKG evidence of stress induced myocardial ischemia. See separately dictated Nuclear Report.
== END 2016-10-29 18:55 ==
LOC: ENRESERVDT → ENRESERVTM → ERH 09:06 → ERHI 11:22 → 1NO 11:22
PROVIDERS: Emergency Medicine; ADMIT Hospitalist
DX: R07.9 Chest pain, unspecified (principal); N18.9 Chronic kidney disease, unspecified; I25.2 Old myocardial infarction; F32.9 Major depressive disorder, single episode, unspecified; E78.5 Hyperlipidemia, unspecified; I10 Essential (primary) hypertension; E66.9 Obesity, unspecified; Z68.38 Body mass index [BMI] 38.0-38.9, adult
CPT/HCPCS: 1328; 1425; 1530; 1748; 2000; 74176; 78452; 81001; 93005; 93010; 93016; 93017; 96372; 99232; A9502; G0378; J1245; J1644; Q2036

== ENCOUNTER 2016-12-13 10:20 | Emergency (ER) | payer OTHER ==
[~2016-12-13] VITALS: Ht 190.5 cm; Wt 145.2 kg
[~2016-12-13 10:20] MED LIST changes: +GEMFIBROZIL600 M1 PO; +LANTUS SOL100 UNIT/1 SC; +SERTRALINE HCL25 MG PO
[2016-12-13] MEDS ORDERED: NOVOLOG100 UNIT/2 (11:10)
--- NOTE | 2016-12-13 12:14 | OP PSYCH PROGRESS NOTE ---
Psych (Outpt) Progress Note Encounter Encounter Type: Individual Only Date of Group or Service: 12/13/16 Time of Group or Service: 0900 Patient Education Performed: Yes How taught: Verbal Subjective "I am not going to lie, but I am not doing well." Patient came in and shared current stressors. He was disappointed that he got denied for disability. He shared he was going to the library after our session to fill out the appeal paperwork and may hire an erisa attorney to help. Patient also reported he is finding himself isolating more. He shared he has a friend that is drinking too much and her wants him to talk to her for him. He also reported he has limited contact with his family. He does have supportive friends in his life. He reports additional medical concerns, his insulin has to be raised and he found a lump on his right side around his breast and his right arm is tingling. Encouraged patient to call his primary care physician for medical concerns. Overall patient reports he is not doing well at this time and described his current mood as depressed/upset. He rated his current depression a 8/10 and current anxiety a 8/10, with 10 being the worst. Reports he is only getting 3 hours of sleep each night, but does nap. Current pleasurable activities he has been recently engaged in is playing old [employer] games on his ipad. Reports feeling isolated/socially withdrawn at this time. Denies SI/HI at this time. Reports current stressor is disability and paying bills. Most effective coping skill patient has been utilizing are video games, meditation, and music. Completed treatment plan together. Objective Patient will continue with brief individual therapy twice a month/as needed and medication management with Vilma Guillaume APRN monthly/as needed. Mental Status Exam Appearance Well Groomed Cooperativeness/Relatedness Cooperative Speech Normal, WNL Mood Depressed Affect Depressed, Flat Thoughts Logical Psychosis Absent Hallucinations Absent Cognition Intact Suicidal Ideation No Plan No Homicidal Ideation No Neurovegetative Symptoms # hrs of Sleep/Day 3.0 Appetite Low Energy Low Interest Low Concentration Good Insight WNL
--- NOTE | 2016-12-13 12:14 | ED SKIN/ALLERGY COMPLAINT ---
History of Present Illness General Chief Complaint: Skin Rash/ Abcess Stated Complaint: SENT IN BY MD FOR ?ABCESS ON CHEST Source: patient Exam Limitations: no limitations Vital Signs & Intake/Output Vital Signs & Intake/Output Vital Signs Date Time Temp Pulse Resp B/P Pulse O2 O2 Flow FiO2 Ox Delivery Rate 12/13 1249 97.5 60 18 134/75 97 Room Air Room Air 12/13 1024 97.8 84 20 130/65 98 Room Air Allergies Coded Allergies: lisinopril (Severe, ANGIO EDEMA AND LIP SWELLING 05/19/16) metformin (kidney damage 12/13/16) atorvastatin (From LIPITOR) (Intermediate, TIRED AND ATTACKS MY BLOOD CELLS 12/30) Reconcile Medications Amlodipine Besylate 10 MG TABLET 1 TAB PO DAILY BLOOD PRESSURE Aspirin (Lo-Dose Aspirin EC) 81 MG TABLET.DR 1 TAB PO D HOTPOTATO MEDIA ( Reported) Cholecalciferol (Vitamin D3) (Vitamin D) 2,000 UNIT CAPSULE 1 CAP PO DAILY SUPPLEMENT (Reported) Exenatide (Byetta) 10 MCG/0.04 ML PEN.INJCTR 10 MCG SC BID DIABETES (Reported ) Gabapentin 100 MG CAPSULE 1 CAP PO TID PERIPERAL NEUROPATHY (Reported) Gemfibrozil 600 MG TABLET 1 TAB PO BID CHOLESTEROL (Reported) Insulin Aspart (Novolog) (Unknown Strength) VIAL (Unknown Dose) SEE SLIDING SCALE DIABETES (Reported) Insulin Glargine,Hum.rec.anlog (Lantus Solostar) 100 UNIT/ML (3 ML) INSULN.PEN 15 UNIT SC QPM DIABETES (Reported) Pravastatin Sodium 20 MG TABLET 1 TAB PO DAILY CHOLESTEROL (Reported) Sertraline HCl 25 MG TABLET 3 TAB PO DAILY depression Triage Note: PT TO ED C/O ? ABSCESS UNDER RIGHT BREAST. PT STATES HE CAN FEEL SOMETHING UNDER THE SKIN. PT WENT TO [facility] THIS AM WAS TOLD TO COME TO ED. PT ALSO C/O "LUMP" TO LEFT FOREHEAD. Triage Nurses Notes Reviewed? yes HPI: 51-year-old male here with 2 complaints sent in by his primary care doctor. First one is that he has had a area of swelling,?cyst, to left forehead region for the last several months that he feels is growing. It is nontender. No erythema. There is no trauma to the area. His second complaint is a lump to the right lateral superior chest region, near his right axilla. He is known about this lump for about a year and states it is getting bigger in size and becoming more tender over the last 2 or 3 days. it is hard him to sleep on that side because of the tenderness. He denies any redness, no fever, no flulike illness. Past History Travel History Traveled to [place] past 21 day No Medical History Any Pertinent Medical History? see below for history Neurological: NONE EENT: NONE Cardiovascular: hyperlipidemia, myocardial infarction Respiratory: NONE Gastrointestinal: NONE Hepatic: NONE Renal: NONE Musculoskeletal: NONE Psychiatric: anxiety, depression Endocrine: diabetes Blood Disorders: NONE Cancer(s): NONE INDUSTRIAL ENGINEERING/Reproductive: NONE History of MRSA: No History of VRE: No History of CDIFF: No Surgical History Surgical History: ART R KNEE Psychosocial History Who do you live with Patient/Self What is your primary language Setswana Tobacco Use: Never used ETOH Use: denies use Illicit Drug Use: denies illicit drug use Family History Family History, If Any: FATHER FH: hypertension Hx Contributory? No Review of Systems Review of Systems Constitutional: Reports: see HPI. EENTM: Reports: no symptoms. Respiratory: Reports: no symptoms. Cardiovascular: Reports: no symptoms. GI: Reports: no symptoms. Genitourinary: Reports: no symptoms. Musculoskeletal: Reports: no symptoms. Skin: Reports: see HPI. Neurological/Psychological: Reports: no symptoms. Hematologic/Endocrine: Reports: no symptoms. Immunologic/Allergic: Reports: no symptoms. All Other Systems: Reviewed and Negative Physical Exam Physical Exam General Appearance: well developed/nourished Comments: Well-developed well-nourished no apparent distress. HEENT: Atraumatic, extraocular motion intact Left lateral superior forehead with a 2 cm oval mobile cystic like structure in the subcutaneous tissue. It is nontender. Appears to be fluid filled. Right lateral chest region inferior and anterior to the axilla there is a approximately 8 x 5 cm mass of tissue that is deep, well below the skin surface, there are no skin surface changes. There is mild tenderness on palpation. There is no erythema, there is no fluctuance. There is no lymphadenopathy noted in the area. Neck: Supple, no lymphadenopathy Back: Nontender Respiratory: No respiratory distress Extremities: No edema, full range of motion Neuro: Alert and oriented x3 Psych: Mood affect normal, normal memory normal judgment. Skin: Warm and dry, no rash on exposed skin Progress Differential Diagnosis: abscess/cellulitis, allergic reaction, anaphylaxis, angioedema, asthma, contact dermatitis, drug reaction, erythema multiforme, lyme disease, meningitis/sepsis, piyriasis rosea, RMSF, scarlet fever, shingles, syphilis/gonococcemia, toxic shock syndrome, urticaria Plan of Care: Orders Procedure Date/time Status US-SUPERFICIAL IMAGING EXTREMI 12/13 1119 Active Diagnostic Imaging: Viewed by Me: Ultrasound. Discussed w/RAD: Ultrasound. Radiology Impression: PATIENT: SOBIA TAMEZ PRESENT AGE: 51 PATIENT ACCOUNT NO: [id number] : 63 LOCATION: [facility] ORDERING PHYSICIAN: LUCRETIA BROOKE SERVICE DATE: 12/13/16 EXAM TYPE: US - US -SUPERFICIAL IMAGING EXTREMI EXAMINATION: US SUPERFICIAL IMAGING, EXTREMITY CLINICAL INFORMATION: Palpable mass and subcutaneous tissue right superior chest wall. COMPARISON: Chest CT from 10/27/2016. TECHNIQUE: Real-time sonographic imaging of the right anterolateral chest wall was performed using a high- resolution linear as well as curvilinear transducers. FINDINGS: There is generalized prominence of adipose tissue of the right anterior chest wall and, on physical examination, this has a symmetric appearance compared to left chest wall. Real-time imaging of subcutaneous tissues of the right chest wall in the area of palpable concern reveals an area of more circumscribed fat that measures 1.4 cm AP, 5.3 cm transverse and 5.8 cm long. Color Doppler images show normal tissue vascularity in this region. No subcutaneous tissue edema or focal fluid collection. IMPRESSION: Findings compatible with lipoma within subcutaneous tissues of the right chest wall. DICTATED BY: MAYLIN RODRIGUEZ MD DATE/TIME DICTATED:12/13/16 / 1303 HOSPICE CARE CONSULTANT:MISTY Comments: REFERRED TO GENERAL SUREGERY FOR REMOVAL OF LIPOMA AND POSSIBLE REMOVAL OF CYST TO FOREHEAD (ALTHOUGH HE MAY NEED PLASTICS FOR THIS AND THIS WAS DW HIM). Departure Departure Disposition: HOME OR SELF CARE Condition: Stable Clinical Impression Primary Impression: Lipoma of anterior chest wall Secondary Impressions: Dermoid cyst of forehead Referrals: LEI CORTES APRN (PCP/Family) JOSE MCKINNON,NORMA N. Additional Instructions: Follow-up with general surgery for evaluation and removal of your lipoma and cyst to your forehead. Call to make an appointment Departure Forms: Customer Survey General Discharge Information
--- NOTE | 2016-12-13 12:44 | OP PSYCH TREATMENT PLAN INIT ---
DSM5/PS Stressors/Medical Prob Diagnosis' (DSM 5, Stressors, Medical): F33.1 Major depressive disorder, Recurrent episode, Moderate R/O PTSD Psych (Outpt) Initial [place] Plan Date of Group or Service: 12/13/16 Time of Group or Service: 0900 Initial Assessment Integrated Summary: Patient is a 51 year old single male who was referred from [facility]'s medical floor. He presented on 10/27/16 in ED for chest pain and was admitted for evaluation of chest pain. While in the hospital patient reported he asked to speak with a psychiatrist. Reports having health issues - diabetes and kidney problems. Current symptoms reported isolating, mood swings, anxiety, and racing thoughts. Patient also shared he is afraid to go to sleep for fear of not waking up due to his medical conditions. Reports onset was thirteen years ago around the time of when he was diagnosed with diabetes. Overall patient reports he is not doing well at this time and described his current mood as depressed/upset. He rated his current depression a 8/10 and current anxiety a 8/10, with 10 being the worst. Reports he is only getting 3 hours of sleep each night, but does nap. Current pleasurable activities he has been recently engaged in is playing old [employer] games on his ipad. Reports feeling isolated/socially withdrawn at this time. Denies SI/HI at this time. Reports current stressor is disability and paying bills. Most effective coping skill patient has been utilizing are video games, meditation, and music. Strengths: " loyal person, good support, and good listener" Goals of person in recovery (quoted): "Get better, more open to things that I was before." Area of Focus #1: Depressive Symptoms Goal: "Get better, more open to things that I was before." Objective (expressed in measurable terms, steps to achieve the goal & measurable target date): 1) "Go to jew" Learn and utilize new healthy coping skills to help manage symptoms. Patient to discuss in session how he utilized them and if they were effective. (01/10/17) 2) Attend all scheduled individual sessions and medication management appointments. (01/10/17) 3) Directly communicate feelings and symptom severity to therapist. Patient will rate symptoms as <4/10 in severity for 3 consecutive months. (01/10/17) 4) Take medications as prescribed and report any concerns regarding medications to prescriber. (01/10/17) Theraputic Interventions (include frequency and staff): Individual Pharmacotherapy- monthly or as needed- Vilma Guillaume APRN: BUSINESS PRACTICES SUPERVISOR will provide medication management, providing patient with psychoeducation RE: risks and benefits of current medications as well as assessing her for medication adjustments if needed. Brief Individual Psychotherapy- biweekly- Bart Rojas LCSW: Clinician will utilize CBT, DBT, and supportive therapy to assist patient in meeting treatment goal of stabilizing and improving mood. Patient Signature Date/Time:
[2016-12-13 12:49] VITALS: BP 134/75
--- NOTE | 2016-12-13 13:10 | ULTRASOUND REPORT ---
EXAMINATION: US SUPERFICIAL IMAGING, EXTREMITY CLINICAL INFORMATION: Palpable mass and subcutaneous tissue right superior chest wall. COMPARISON: Chest CT from 10/27/2016. TECHNIQUE: Real-time sonographic imaging of the right anterolateral chest wall was performed using a high-resolution linear as well as curvilinear transducers. FINDINGS: There is generalized prominence of adipose tissue of the right anterior chest wall and, on physical examination, this has a symmetric appearance compared to left chest wall. Real-time imaging of subcutaneous tissues of the right chest wall in the area of palpable concern reveals an area of more circumscribed fat that measures 1.4 cm AP, 5.3 cm transverse and 5.8 cm long. Color Doppler images show normal tissue vascularity in this region. No subcutaneous tissue edema or focal fluid collection. IMPRESSION: Findings compatible with lipoma within subcutaneous tissues of the right chest wall.
--- NOTE | 2016-12-14 13:05 | OP PSYCH INCIDENTAL NOTE ---
OPS Incidential Note Details: Patient called to inform clinician that he did get seen by his PCP yesterday and was referred to the ED. Patient shared he went to the ED and was told he has a tumor and needs surgery to have it removed. Patient has an appointment on Tuesday to meet with doctor and discuss the next steps. Patient reported he is doing alright and handling the news well. He continues to use meditation and prayer as coping skills. Denies SI/HI at this time.
== END 2016-12-13 13:31 ==
LOC: ERH 10:20
DX: D17.1 Benign lipomatous neoplasm of skin and subcutaneous tissue of trunk (principal); D23.39 Other benign neoplasm of skin of other parts of face
CPT/HCPCS: 76881

== ENCOUNTER 2016-12-29 16:06 | Emergency (ER) | payer OTHER ==
[2016-12-29 16:10] VITALS: BP 119/79
--- NOTE | 2016-12-29 16:11 | ED GENERAL ADULT ---
History of Present Illness General Chief Complaint: General Adult Stated Complaint: SENT FROM PACU Source: patient Exam Limitations: no limitations Vital Signs & Intake/Output Vital Signs & Intake/Output Vital Signs Date Time Temp Pulse Resp B/P Pulse O2 O2 Flow FiO2 Ox Delivery Rate 12/29 1610 97.4 83 18 119/79 96 Room Air 12/29/16 5 PM 51-year-old male presents to the emergency department from PACU. The patient says that he had a cyst removed from his left forehead and then he also had a lesion removed from his right anterior hemithorax earlier today in the OR. He said he developed left upper quadrant abdominal pain and was referred to the ED for evaluation. The onset of the symptoms was abrupt, the duration was just today, the severity is significant; as his symptoms required him to come to the emergency department for care He denies vomiting fever or other complaints (ANKITA FLYNN DO) Allergies Coded Allergies: lisinopril (Severe, ANGIO EDEMA AND LIP SWELLING 05/19/16) metformin (kidney damage 12/13/16) atorvastatin (From LIPITOR) (Intermediate, TIRED AND ATTACKS MY BLOOD CELLS 12/30) Reconcile Medications Amlodipine Besylate 10 MG TABLET 1 TAB PO DAILY BLOOD PRESSURE Aspirin (Lo-Dose Aspirin EC) 81 MG TABLET.DR 1 TAB PO D [facility] ( Reported) Cholecalciferol (Vitamin D3) (Vitamin D) 2,000 UNIT CAPSULE 1 CAP PO DAILY SUPPLEMENT (Reported) Exenatide (Byetta) 10 MCG/0.04 ML PEN.INJCTR 10 MCG SC BID DIABETES (Reported ) Gabapentin 100 MG CAPSULE 1 CAP PO TID PERIPERAL NEUROPATHY (Reported) Gemfibrozil 600 MG TABLET 1 TAB PO BID CHOLESTEROL (Reported) Insulin Aspart (Novolog) (Unknown Strength) VIAL (Unknown Dose) SEE SLIDING SCALE DIABETES (Reported) Insulin Glargine,Hum.rec.anlog (Lantus Solostar) 100 UNIT/ML (3 ML) INSULN.PEN 15 UNIT SC QPM DIABETES (Reported) Pravastatin Sodium 20 MG TABLET 1 TAB PO DAILY CHOLESTEROL (Reported) Sertraline HCl 25 MG TABLET 3 TAB PO DAILY depression Triage Nurses Notes Reviewed? yes HPI: 12/29/16 5 PM Is a 51-year-old male presents to the emergency department from the PACU. The patient had a surgical procedure earlier today where he had a cyst removed from the left forehead and from the right chest. While he was in tachycardia recovering he had a severe onset of left lower quadrant abdominal pain. The onset of the symptoms were abrupt, the duration was just today, the severity was significant; as his symptoms required him to come to the emergency department for care on physical exam he has left upper quadrant abdominal tenderness. Past History Travel History Traveled to [place] past 21 day No Medical History Any Pertinent Medical History? 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 No Review of Systems Review of Systems Constitutional: Denies: fever. EENTM: Denies: visual changes. Respiratory: Denies: short of breath. Cardiovascular: Denies: chest pain. GI: Reports: abdominal pain. Genitourinary: Reports: no symptoms. Musculoskeletal: Reports: no symptoms. Skin: Reports: no symptoms. Neurological/Psychological: Reports: no symptoms. Hematologic/Endocrine: Reports: no symptoms. Physical Exam Physical Exam General Appearance: alert, awake, anxious, mild distress Head: atraumatic, normal appearance Eyes: Bilateral: normal appearance, PERRL, EOMI. Ears, Nose, Throat: normal pharynx, normal ENT inspection Neck: normal inspection, supple Respiratory: normal breath sounds, chest non-tender, no respiratory distress Cardiovascular: regular rate/rhythm Peripheral Pulses: 4+ radial (R), 4+ radial (L) Gastrointestinal: normal bowel sounds (left upper quadrant), soft, tenderness Back: normal range of motion Extremities: normal inspection Neurologic/Psych: no motor/sensory deficits, awake, alert, oriented x 3 Skin: intact, normal color, warm/dry Core Measures ACS in differential dx? No CVA/TIA Diagnosis: No Severe Sepsis Present: No Septic Shock Present: No Progress Differential Diagnoses I considered the following diagnoses in my evaluation of the patient: [Renal colic, pancreatitis, cholecystitis, cholelithiasis, diverticulitis, adverse drug reaction] Plan of Care: Orders Procedure Date/time Status Consistent Carbohydrate 1 12/30 B Active TROPONIN LEVEL 12/29 183 Complete LIPASE 12/29 183 Complete AMYLASE 12/29 183 Complete URINE DRUG SCREEN FOR ER ONLY 12/29 170 Active URINALYSIS 12/29 170 Active COMPREHENSIVE METABOLIC PANEL 12/29 170 Complete CBC WITHOUT DIFFERENTIAL 12/29 170 Complete Current Medications Sig/Aris Start time Last Medication Dose Stop Time Status Admin Sodium Chloride 1,000 ML 12/29 171 CAN (Normal Saline 0.9%) Laboratory Tests 12/29/16 183: Anion Gap 15, Estimated GFR 53 L, BUN/Creatinine Ratio 9.3, Glucose 264 H, Calcium 9.7, Total Bilirubin 0.6, AST 38, ALT 60, Alkaline Phosphatase 85, Troponin I < 0.01, Total Protein 7.4, Albumin 4.1, Globulin 3.3, Albumin/ Globulin Ratio 1.2, Amylase 98, Lipase 886 H, CBC w Diff NO MAN DIFF REQ, RBC 5.26, MCV 82.8, MCH 26.5 L, RDW 14.4, MPV 9.2, Gran % 88.4 H, Lymphocytes % 10.7 L, Monocytes % 0.8 L, Eosinophils % 0.1, Basophils % 0 L, Absolute Granulocytes 10.3 H, Absolute Lymphocytes 1.3, Absolute Monocytes 0.1 L, Absolute Eosinophils 0, Absolute Basophils 0, PUBS MCHC 32.1 L 12/29/16 1704: Troponin I Cancelled, Amylase Cancelled, Lipase Cancelled Initial ED EKG: none Departure Departure Disposition: STILL A PATIENT Condition: Stable Clinical Impression Primary Impression: Abdominal pain Referrals: LEI CORTES APRN (PCP/Family) Departure Forms: Customer Survey General Discharge Information Comments The patient's pain was much improved on reevaluation. He actually says he's had the pain, over the last 8 months. His lipase was elevated and he has left upper quadrant abdominal tenderness. He does not drink alcohol. Liver enzymes are normal. I believe he has drug-induced pancreatitis. I reviewed his medications. His pravastatin was held. He will follow up the manager zone this week. I considered acute coronary syndrome. He had no chest pain. He clearly had left upper quadrant abdominal tenderness. Troponin was nondetectable. He will take Percocet as needed for pain. Discontinue the pravastatin. Follow up with GI doctor this week. CT scan of the abdomen and pelvis was unremarkable PATIENT: SOBIA TAMEZ PRESENT AGE: 51 PATIENT ACCOUNT NO: [id number] : 63 LOCATION: [facility] ORDERING PHYSICIAN: ANKITA FLYNN DO SERVICE DATE: 12/29/16 EXAM TYPE: CAT - CT ABD & PELVIS W/O IV CONTRAS EXAMINATION: CT ABDOMEN AND PELVIS WITHOUT CONTRAST CLINICAL INFORMATION: Left lower quadrant pain. COMPARISON: 10/27/2016 TECHNIQUE: Multidetector volumetric imaging was performed from the superior aspect of the liver through the pubic symphysis. Sagittal and coronal reformatted images were obtained on the technologist's workstation. DLP: 1493 mGy-cm FINDINGS: LUNG BASES: There is linear atelectatic changes right lung base. Bilateral hyperinflated lungs. Heart size is within normal limits. LIVER, GALLBLADDER, AND BILIARY TREE: The liver is normal in size, shape, and mildly attenuated. No focal hepatic lesion or biliary ductal dilatation is present. The gallbladder is unremarkable with no evidence of radiopaque gallstones, gallbladder wall thickening, or obvious pericholecystic inflammatory changes. PANCREAS: Unremarkable. SPLEEN: Unremarkable. ADRENAL GLANDS: Unremarkable. KIDNEYS AND URETERS: The kidneys are normal in size, shape, and attenuation. No hydronephrosis, hydroureter, or calculi seen. There is bilateral perinephric stranding stable since the previous study. BLADDER: Bladder is distended but no radiopaque calculi seen. GASTROINTESTINAL TRACT: There are scattered diverticuli seen sigmoid and descending colon without diverticulitis. There is minimal scattered stool in colon but no colonic distention. The small bowel loops are unremarkable. There is diffuse mesenteric lipomatosis. No free air or free fluid seen. ABDOMINAL WALL: No significant hernia is appreciated. LYMPH NODES: Normal. VASCULAR: Unremarkable. PELVIC VISCERA: There is no free air or free fluid. The prostate gland is normal size. OSSEOUS STRUCTURES: No lytic or sclerotic process seen. There is moderate ventral bridging osteophytes lower dorsal and upper lumbar spine. IMPRESSION: Sigmoid and descending colon diverticulosis without diverticulitis. Diffuse hepatic steatosis and mesenteric lipomatosis. No radiopaque renal calculi or hydronephrosis. Previously noted 2 mm upper pole calyceal stone right kidney is not seen at this time. DICTATED BY: SORAIDA ESCALANTE MD DATE/TIME DICTATED:12/29/161929 POWDER COMPOUNDER:MISTY DATE/TIME TRANSCRIBED:12/29/161929 CONFIDENTIAL, DO NOT COPY WITHOUT APPROPRIATE AUTHORIZATION. <Electronically signed in Other Vendor System> SIGNED BY: SORAIDA ESCALANTE MD 12/29/161942 Critical Care Note Critical Care Note Critical Care Time: non-applicable
[2016-12-29 18:48] LABS: ABSOLUTE BASOPHIL COUNT 0 /CUMM (0.0-0.2); ABSOLUTE EOSINOPHIL COUNT 0 /CUMM (0.0-0.7); ABSOLUTE GRANULOCYTE CT 10.3 /CUMM (1.4-6.5); ABSOLUTE LYMPH COUNT 1.3 /CUMM (1.2-3.4); ABSOLUTE MONOCYTE COUNT 0.1 /CUMM (0.10-0.60); BASOPHIL % 0 % (0.0-2.0); EOSINOPHIL % 0.1 % (0-5); HEMATOCRIT 43.6 % (42-52); MEAN CORPUSCULAR HGB 26.5 PG (27.0-31.0); MEAN CORPUSCULAR HGB CONC 32.1 G/DL (33.0-37.0); MEAN CORPUSCULAR VOLUME 82.8 FL (80.0-94.0); MEAN PLATELET VOLUME 9.2 FL (7.4-10.4); PLATELET COUNT 309 /CUMM (130-400); RBC DISTRIBUTION WIDTH 14.4 % (11.5-14.5); RED BLOOD CELL CT 5.26 /CUMM (4.70-6.10)
[2016-12-29 18:50] LABS: GRANULOCYTE % 88.4 % (42.2-75.2); WHITE BLOOD CELL COUNT 11.7 /CUMM (4.8-10.8)
--- NOTE | 2016-12-29 19:43 | CT SCAN REPORT ---
EXAMINATION: CT ABDOMEN AND PELVIS WITHOUT CONTRAST CLINICAL INFORMATION: Left lower quadrant pain. COMPARISON: 10/27/2016 TECHNIQUE: Multidetector volumetric imaging was performed from the superior aspect of the liver through the pubic symphysis. Sagittal and coronal reformatted images were obtained on the technologist's workstation. DLP: 1493 mGy-cm FINDINGS: LUNG BASES: There is linear atelectatic changes right lung base. Bilateral hyperinflated lungs. Heart size is within normal limits. LIVER, GALLBLADDER, AND BILIARY TREE: The liver is normal in size, shape, and mildly attenuated. No focal hepatic lesion or biliary ductal dilatation is present. The gallbladder is unremarkable with no evidence of radiopaque gallstones, gallbladder wall thickening, or obvious pericholecystic inflammatory changes. PANCREAS: Unremarkable. SPLEEN: Unremarkable. ADRENAL GLANDS: Unremarkable. KIDNEYS AND URETERS: The kidneys are normal in size, shape, and attenuation. No hydronephrosis, hydroureter, or calculi seen. There is bilateral perinephric stranding stable since the previous study. BLADDER: Bladder is distended but no radiopaque calculi seen. GASTROINTESTINAL TRACT: There are scattered diverticuli seen sigmoid and descending colon without diverticulitis. There is minimal scattered stool in colon but no colonic distention. The small bowel loops are unremarkable. There is diffuse mesenteric lipomatosis. No free air or free fluid seen. ABDOMINAL WALL: No significant hernia is appreciated. LYMPH NODES: Normal. VASCULAR: Unremarkable. PELVIC VISCERA: There is no free air or free fluid. The prostate gland is normal size. OSSEOUS STRUCTURES: No lytic or sclerotic process seen. There is moderate ventral bridging osteophytes lower dorsal and upper lumbar spine. IMPRESSION: Sigmoid and descending colon diverticulosis without diverticulitis. Diffuse hepatic steatosis and mesenteric lipomatosis. No radiopaque renal calculi or hydronephrosis. Previously noted 2 mm upper pole calyceal stone right kidney is not seen at this time.
== END 2016-12-29 20:45 ==
LOC: ERH 16:06
PROVIDERS: Emergency Medicine
DX: R10.12 Left upper quadrant pain (principal); E11.9 Type 2 diabetes mellitus without complications; Z79.4 Long term (current) use of insulin
CPT/HCPCS: 74176; 80307; 96372; J1815

== ENCOUNTER → 2016-12-29 | Day surgery (SDC) | payer OTHER ==
[~2016-12-29] VITALS: Ht 190.5 cm; Wt 149.7 kg
[~2016-12-29] MED LIST changes: +NOVOLOG100 UNIT/2
--- NOTE | 2016-12-29 13:36 | Operative Report ---
Operative/Inv Procedure Report Surgery Date: 12/29/16 Name of Procedure: 1. Excision of deep subfascial 8 cm lipoma, right axilla 2. Excision of deep, submuscular for head lipoma, 2 cm Pre-Operative Diagnosis: Lipoma Post-Operative Diagnosis: Same Estimated Blood Loss: less than 50ml Surgeon/Last Repairer Helper: EDMOND MCKINNON,BERRY Oconnor /OLLIE BROOKE Anesthesia: laryngeal mask airway Operative/Procedure Note Note: After consent is brought to the operating room laid supine. Gen. anesthesia was obtained and his right axilla and forehead were prepped and draped. The skin in the right axilla was after the cocktail local anesthesia. A transverse incision made sharply. We dissected down through the clavipectoral fascia and encountered a very large lipoma. Dissection was quite difficult as it infiltrated into the axillary tissues proper. We had to dissect through and around lymph node tissue. It was cut difficult to figure out what was lipoma and what was axillary contents. Care was taken to avoid removing axillary contents to avoid edema. We circumferentially dissected the lipoma with cautery and blunt and suture ligature dissection. We brought it out in 2 pieces one was a superficial layer and one was the deep layer. They're both in continuity but it was easier to take them out separately to help identify structures. The wound was then irrigated with saline and hemostasis achieved with cautery. Incision was then closed in 2 layers of 304 0 Vicryl. Steri-Strips and sterile dressing applied. Then turned my attention to the left forehead. The area over the mass was infiltrated local anesthesia. A transverse incision made sharply. Dissected down through the muscle and encountered a to surgery lipoma that was fused to the calvarium. It was dissected free circumferentially with cautery and passed off the field. We then closed the muscle with interrupted 3-0 Vicryl. An incision was closed with skin glue. Sterile dressing applied. Sponge and needle counts are correct. CC: LEI CORTES APRN
== END ==
LOC: STS 03:59
DX: D17.39 Benign lipomatous neoplasm of skin and subcutaneous tissue of other sites (principal); D21.0 Benign neoplasm of connective and other soft tissue of head, face and neck; I10 Essential (primary) hypertension; E11.9 Type 2 diabetes mellitus without complications; Z79.4 Long term (current) use of insulin
CPT/HCPCS: 88304; 88305; J0131; J0690; J2250

== ENCOUNTER 2018-04-20 09:06 | Observation (INO) | payer OTHER ==
[~2018-04-20] VITALS: Ht 190.5 cm; Wt 144.7 kg
[~2018-04-20 09:06] MED LIST changes: +BUSPIRONE HCL15 M1 PO; +DICYCLOMINE HCL10 M1 PO; +MEDROL4 M2 PO; -NOVOLOG100 UNIT/2; +NOVOLOG100 UNIT/2 SC; +PANTOPRAZOLE SO40 M1 PO; +PERCOCET 5-3251 EACH PO; +PROAIR HFA8.5 GM INH; +ZOLOFT100 M1 PO
--- NOTE | 2018-04-20 09:32 | ED CARDIAC/CP/PALPITATIONS ---
History of Present Illness General Chief Complaint: General Adult Stated Complaint: CP Source: patient Exam Limitations: no limitations Allergies Coded Allergies: lisinopril (Severe, ANGIO EDEMA AND LIP SWELLING 05/19/16) STATINS (ATTACKS BLOOD CELLS 05/17/17) bupropion (UNKNOWN 04/20/18) metformin (kidney damage 12/13/16) atorvastatin (From LIPITOR) (Intermediate, TIRED AND ATTACKS MY BLOOD CELLS 12/30) Reconcile Medications Albuterol Sulfate (Proair Hfa) 90 MCG HFA.AER.AD 2 PUF INH Q4-6 PRN PRN BRONCHTIIS Amlodipine Besylate 10 MG TABLET 1 TAB PO DAILY HEART (Reported) Aspirin (Lo-Dose Aspirin EC) 81 MG TABLET.DR 1 TAB PO D HEART HEALTH ( Reported) Buspirone HCl 15 MG TABLET 1 TAB PO TID MENTAL HEALTH (Reported) Cholecalciferol (Vitamin D3) (Vitamin D) 2,000 UNIT CAPSULE 1 CAP PO DAILY SUPPLEMENT (Reported) Dicyclomine HCl 10 MG CAPSULE 1 CAP PO TID BOWEL V3OQUYE (Reported) Exenatide (Byetta) 10 MCG/0.04 ML PEN.INJCTR 10 MCG SC BID DIABETES (Reported ) Gabapentin 100 MG CAPSULE 1 CAP PO TID PERIPERAL NEUROPATHY (Reported) Gemfibrozil 600 MG TABLET 1 TAB PO BID CHOLESTEROL (Reported) Insulin Aspart (Novolog) 100 UNIT/ML VIAL 20 UNITS SC TID DIABETES (Reported) Insulin Glargine,Hum.rec.anlog (Lantus Solostar) 100 UNIT/ML (3 ML) INSULN.PEN 24 UNIT SC QPM DIABETES (Reported) Meloxicam 7.5 MG TABLET 1 TAB PO DAILY PAIN (Reported) Nitroglycerin 0.4 MG TAB.SUBL 1 TAB SL DAILY PRN CHEST PAIN (Reported) 1st sign of attack; may repeat every 5 minutes until relief; if pain persists after 3 tablets in 15 minutes, prompt medical att Pantoprazole Sodium 40 MG TABLET.DR 1 TAB PO DAILY GI (Reported) Paroxetine HCl (Paxil) 40 MG TABLET 1 TAB PO DAILY MENTAL HEALTH (Reported) Pravastatin Sodium 40 MG TABLET 1 TAB PO QPM CHOLESTEROL (Reported) Sertraline HCl (Zoloft) 100 MG TABLET 2 TAB PO QPM MENTAL HEALTH (Reported) Triage Note: 52 Y/O MALE C/O "NOT FEELING WELL SINCE THE HEAT WAVE" DESPITE BEING IN COOL AIR. REPORTS INTERMITTENT BLURRED VISION, HEADACHES, NAUSEA AND CHEST PAIN (L SIDED). ALSO REPORTS HX DIABETES AND STATES SUGARS HAVE BEEN HIGH, 300'S. WAS EVAL'D AT [facility] THIS MORNING AND ADVISED TO COME TO ED FOR FURTHER EVAL. EKG COMPLETED AND SIGNED BY MD Triage Nurses Notes Reviewed? 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 Patient can tolerate by mouth PT C/O HEADACHE, NAUSEA, WEAKNESS Denies any fevers Denies any arm pain jaw pain vomiting leg swelling, hemoptysis (Sobia Klein) Vital Signs & Intake/Output Vital Signs & Intake/Output Vital Signs Date Time Temp Pulse Resp B/P B/P Pulse O2 O2 Flow FiO2 Mean Ox Delivery Rate 07/05 1330 97.6 66 18 118/67 98 Room Air 07/05 1040 80 18 115/59 97 Room Air 07/05 1036 81 20 98/49 98 Room Air 07/05 1030 70 20 91/51 97 Room Air 07/05 1020 74 22 126/70 97 Room Air 07/05 0934 97 Room Air 07/05 0917 96.7 81 18 108/76 98 Room Air (Tabitha MCKINNON,Ryland Dangelo) Past History Medical History Any Pertinent Medical History? 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 No (Sobia Klein) Review of Systems Review of Systems Constitutional: Reports: see HPI. EENTM: Reports: no symptoms. Respiratory: Reports: see HPI. Cardiovascular: Reports: see HPI, chest pain. GI: Reports: see HPI, abdominal pain. Genitourinary: Reports: no symptoms. Musculoskeletal: Reports: no symptoms. Skin: Reports: no symptoms. Neurological/Psychological: Reports: see HPI, headache. Hematologic/Endocrine: Reports: see HPI. Immunologic/Allergic: Reports: no symptoms. All Other Systems: Reviewed and Negative (Sobia Klein) Physical Exam Physical Exam General Appearance: no apparent distress, alert, obese Head: atraumatic Eyes: Bilateral: normal appearance. Ears, Nose, Throat: hearing grossly normal Neck: normal inspection Respiratory: normal breath sounds, LEFT ANTERIOR CHEST WALL POINT TENDERNESS Cardiovascular: regular rate/rhythm Gastrointestinal: ABDOMINAL PAIN- EPIGASTRIC NOTED VENTRAL HERNIA Extremities: no edema Skin: intact, normal color, warm/dry Core Measures ACS in differential dx? Yes CVA/TIA Diagnosis No Sepsis Present: No Sepsis Focused Exam Completed? No (Sobia Klein) Progress Differential Diagnosis: AMI, aortic dissection, atrial fibrillation, cholecystitis, CHF/pulm edema, costochondritis, hyperkalemia, hypovolemia, hyperthyroid, hyperventilation, intracranial hemorrhage, musculoskeletal pain, myocarditis, pancreatitis, pericarditis, pneumonia, pneumothorax, PSVT, pulmonary embolism, PUD/GERD, PVCs/PACs, respiratory failure, rib fracture, sepsis, unstable angina, V-fib/V-Tach, WPW syndrome Diagnostic Imaging: Viewed by Me: CT Scan. Radiology Impression: no acute abnormality, no fracture Initial ED EK BPM,SINUS RHYTHM Comments: PATIENT: SOBIA TAMEZ PRESENT AGE: 52 PATIENT ACCOUNT NO: [id number] : 63 LOCATION: [facility] ORDERING PHYSICIAN: Sobia BROOKE SERVICE DATE: 04/20/18 EXAM TYPE: CAT - CT ABD & PELVIS W/O IV CONTRAS; CT CHEST WO IV CONTRAST EXAMINATION: CT CHEST, ABDOMEN AND PELVIS WITHOUT CONTRAST CLINICAL INFORMATION: CHEST AND ABDOMINAL PAIN COMPARISON: CT 01/10/2018, ultrasound 12/22/2017. Chest CT 09/13/2017 TECHNIQUE: Multidetector volumetric imaging was performed from the thoracic inlet through the pubic symphysis following the uneventful administration of: Oral contrast: Yes Intravenous contrast: 80 mL Omnipaque 350 Sagittal and coronal reformatted images were obtained on the technologist workstation. Total exam dose-length product 1883 mGy-cm FINDINGS: CHEST: LUNG: Unchanged 7 mm left lower lobe nodule. MEDIASTINUM: The mediastinum in normal. The central vascular structures are unremarkable. No hilar or mediastinal lymphadenopathy. PLEURA: No significant effusion. No pleural mass or thickening. CHEST WALL/AXILLA: Mild bilateral gynecomastia. No axillary lymphadenopathy. There is asymmetric fat stranding of the right lateral axilla, for example image 18/141, which was present previously as well. ABDOMEN/PELVIS: LIVER, GALLBLADDER, AND BILIARY TREE: Lack of intravenous contrast limits evaluation. No focal liver lesion seen. The gallbladder is unremarkable with no evidence of radiopaque gallstones, gallbladder wall thickening, or obvious pericholecystic inflammatory changes. PANCREAS: Limited noncontrast evaluation. No mass or peripancreatic fluid seen. SPLEEN: Normal size. ADRENAL GLANDS: Normal; no mass. KIDNEYS AND URETERS: No radiopaque lithiasis. There continues to be right greater than left perinephric stranding, present previously as well. GASTROINTESTINAL TRACT: Stomach is collapsed. The small bowel is nondilated. Normal appendix. There is colonic diverticulosis without evidence of diverticulitis. ABDOMINAL WALL: There is fat in the left inguinal canal. LYMPHOVASCULAR STRUCTURES: Normal caliber abdominal aorta with mild calcified atherosclerotic changes. No pathologically enlarged lymphadenopathy. BLADDER: No focal mass or wall thickening seen. No bladder calculi. PELVIC VISCERA: The prostate and seminal vesicles are normal. OSSEOUS STRUCTURES: No acute or suspicious osseous abnormality. IMPRESSION: No acute abnormality in the chest, abdomen, or pelvis. Asymmetric fat stranding of the right lateral axilla, present previously as well. Most likely this corresponds to the lipomatous lesion seen on prior ultrasound 12/13/2016. Question interval surgery. DICTATED BY: Rah Fried MD DATE/TIME DICTATED:04/20/180 (Sobia Klein) Plan of Care: Orders Procedure Date/time Status CBC WITHOUT DIFFERENTIAL 04/21 600 Active BASIC ELECTROLYTES PLUS BUN&CR 04/21 600 Active Consistent Carbohydrate 1 04/20 D Active Pathway - chart 04/20 1352 Active House Staff 04/20 1352 Active Patient Data 04/20 1352 Active Code Status 04/[address] in observation 04/20 1345 Active Misc Message 04/20 134 Active ED Holding Orders 04/20 134 Active Vital Signs 04/20 134 Active Code Status 04/20 1345 Complete LACTIC ACID 04/20 1243 Complete MIXED VENOUS BLOOD GAS (GEN) 04/20 1048 Complete EKG 04/20 1023 Active LIPASE 04/20 0950 Complete Telemetry/Etl Data Architect 04/20 0943 Active TROPONIN LEVEL 04/20 0943 Complete LACTIC ACID 04/20 0943 Complete D-DIMER 04/20 0943 Complete COMPREHENSIVE METABOLIC PANEL 04/20 0943 Complete CBC WITHOUT DIFFERENTIAL 04/20 943 Complete ACETONE 04/20 0943 Complete EKG 04/20 0907 Active VTE Mechanical Prophylaxis 04/20 UNK Active Current Medications Sig/Aris Start time Last Medication Dose Stop Time Status Admin Insulin Aspart 0 Q4 04/20 1400 UNVr 04/20 (NovoLOG) 1320 Insulin Detemir 15 UNITS BID 04/20 1315 UNVr 04/20 (Levemir) 1320 Laboratory Tests 04/20/18 1255: Lactic Acid 1.9 04/20/18 1115: Bicarbonate Actual 24, Mixed VBG pH 7.42 H, Mixed VBG pCO2 38 L, Mixed VBG O2 Saturation 56 H, Carboxyhemoglobin 0.9 L, O2 Concentration % RA, Phlebotomy Draw Site LT ARM VENOUS 04/20/18 0950: Anion Gap 19 H, Estimated GFR 31 L, BUN/Creatinine Ratio 11.8, Glucose 451 H, Lactic Acid 3.9 H, Calcium 9.7, Total Bilirubin 1.1, AST 41, ALT 44, Alkaline Phosphatase 94, Troponin I < 0.01, Total Protein 7.8, Albumin 4.5, Globulin 3.3, Albumin/Globulin Ratio 1.4, Lipase 239, D-Dimer High Sensitivty < 200, CBC w Diff NO MAN DIFF REQ, RBC 5.39, MCV 82.7, MCH 27.7, MCHC 33.5, RDW 12.7, MPV 9.4 , Gran % 63.8, Lymphocytes % 30.0, Monocytes % 4.6, Eosinophils % 0.9, Basophils % 0.7, Absolute Granulocytes 7.1 H, Absolute Lymphocytes 3.3, Absolute Monocytes 0.5, Absolute Eosinophils 0.1, Absolute Basophils 0.1, Acetone Level NEGATIVE 04/20/18 0944: Lipase Cancelled Patient on initial presentation was resting comfortably bedside however at 1026 patient had acute onset of substernal chest squeezing sensation repeat EKG was ordered patient was given nitroglycerin 1115 REPEAT BS 310 Patient's chest pain had completely resolved after nitroglycerin was administered. I discussed patient with endocrinology Dr. 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 Discussed observation placement to patient was aware and agrees. (Sobia Klein) (Tabitha MCKINNON,Ryland Dangelo) Departure Departure Disposition: STILL A PATIENT Condition: Stable Clinical Impression Primary Impression: Angina at rest Secondary Impressions: Acute on chronic renal failure, Hyperglycemia Referrals: Sara Parsons APRN (PCP/Family) Departure Forms: Customer Survey General Discharge Information Observation Note Spoke With: Cesar MCKINNON,Carla Physician Advisor Notified: TAYLOR MCKINNON,JOLENE Esparza Place Patient In: Non-ED OBS Care Area Rationale for Observation: My rational for observation is as follows [patient requires telemetry observation repeat EKG repeat troponin endocrinology consultation cardiology consultation IV fluids blood sugar monitoring]. (Sobia Klein) PA/CHICKEN CUTTER Co-Sign Statement Statement: ED Attending supervision documentation- [X] I saw and evaluated the patient. I have also reviewed all the pertinent lab results and diagnostic results. I agree with the findings and the plan of care as documented in the PA's/CHICKEN CUTTER's documentation. Patient presents for evaluation of chest pain. Physical examination reveals regular heart tones and clear breath sounds bilaterally. [] I have reviewed the ED Record and agree with the PA's/CHICKEN CUTTER's documentation. [] Additions or exceptions (if any) to the PAs/CHICKEN CUTTER's note and plan are summarized below: [] (Tabitha MCKINNON,Ryland Dangelo) Critical Care Note Critical Care Note Critical Care Time: 30-74 min (Sobia Klein)
[2018-04-20] MEDS ORDERED: PAXIL40 M1 PO (09:54)
[2018-04-20] MEDS ORDERED: AMLODIPINE BESY10 M1 PO (09:54)
[2018-04-20] MEDS ORDERED: PRAVASTATIN SOD40 M2 PO (09:55)
[2018-04-20] MEDS ORDERED: MELOXICAM7.5 M1 PO (09:55)
[2018-04-20] MEDS ORDERED: NITROGLYCERIN0.4 M1 SL (09:55)
[2018-04-20 10:03] LABS: ABSOLUTE BASOPHIL COUNT 0.1 /CUMM (0.0-0.2); ABSOLUTE EOSINOPHIL COUNT 0.1 /CUMM (0.0-0.7); ABSOLUTE GRANULOCYTE CT 7.1 /CUMM (1.4-6.5); ABSOLUTE LYMPH COUNT 3.3 /CUMM (1.2-3.4); ABSOLUTE MONOCYTE COUNT 0.5 /CUMM (0.10-0.60); BASOPHIL % 0.7 % (0.0-2.0); EOSINOPHIL % 0.9 % (0-5); GRANULOCYTE % 63.8 % (42.2-75.2); HEMATOCRIT 44.5 % (42-52); MEAN CORPUSCULAR HGB 27.7 PG (27.0-31.0); MEAN CORPUSCULAR HGB CONC 33.5 G/DL (33.0-37.0); MEAN CORPUSCULAR VOLUME 82.7 FL (80.0-94.0); MEAN PLATELET VOLUME 9.4 FL (7.4-10.4); PLATELET COUNT 358 /CUMM (130-400); RBC DISTRIBUTION WIDTH 12.7 % (11.5-14.5); RED BLOOD CELL CT 5.39 /CUMM (4.70-6.10); WHITE BLOOD CELL COUNT 11.1 /CUMM (4.8-10.8)
--- NOTE | 2018-04-20 13:27 | CT SCAN REPORT ---
EXAMINATION: CT CHEST, ABDOMEN AND PELVIS WITHOUT CONTRAST CLINICAL INFORMATION: CHEST AND ABDOMINAL PAIN COMPARISON: CT 01/10/2018, ultrasound 12/22/2017. Chest CT 09/13/2017 TECHNIQUE: Multidetector volumetric imaging was performed from the thoracic inlet through the pubic symphysis following the uneventful administration of: Oral contrast: Yes Intravenous contrast: 80 mL Omnipaque 350 Sagittal and coronal reformatted images were obtained on the technologist workstation. Total exam dose-length product 1883 mGy-cm FINDINGS: CHEST: LUNG: Unchanged 7 mm left lower lobe nodule. MEDIASTINUM: The mediastinum in normal. The central vascular structures are unremarkable. No hilar or mediastinal lymphadenopathy. PLEURA: No significant effusion. No pleural mass or thickening. CHEST WALL/AXILLA: Mild bilateral gynecomastia. No axillary lymphadenopathy. There is asymmetric fat stranding of the right lateral axilla, for example image 18/141, which was present previously as well. ABDOMEN/PELVIS: LIVER, GALLBLADDER, AND BILIARY TREE: Lack of intravenous contrast limits evaluation. No focal liver lesion seen. The gallbladder is unremarkable with no evidence of radiopaque gallstones, gallbladder wall thickening, or obvious pericholecystic inflammatory changes. PANCREAS: Limited noncontrast evaluation. No mass or peripancreatic fluid seen. SPLEEN: Normal size. ADRENAL GLANDS: Normal; no mass. KIDNEYS AND URETERS: No radiopaque lithiasis. There continues to be right greater than left perinephric stranding, present previously as well. GASTROINTESTINAL TRACT: Stomach is collapsed. The small bowel is nondilated. Normal appendix. There is colonic diverticulosis without evidence of diverticulitis. ABDOMINAL WALL: There is fat in the left inguinal canal. LYMPHOVASCULAR STRUCTURES: Normal caliber abdominal aorta with mild calcified atherosclerotic changes. No pathologically enlarged lymphadenopathy. BLADDER: No focal mass or wall thickening seen. No bladder calculi. PELVIC VISCERA: The prostate and seminal vesicles are normal. OSSEOUS STRUCTURES: No acute or suspicious osseous abnormality. IMPRESSION: No acute abnormality in the chest, abdomen, or pelvis. Asymmetric fat stranding of the right lateral axilla, present previously as well. Most likely this corresponds to the lipomatous lesion seen on prior ultrasound 12/13/2016. Question interval surgery.
--- NOTE | 2018-04-20 13:36 | Cons- Endocrinology ---
General Information and HPI Consulting Request Date of Consult: 04/20/18 Requested By: ER Reason for Consult: management of uncontrolled DM type 2 Source of Information: patient, old records Exam Limitations: no limitations History of Present Illness: 52-year-old male with history of poorly controlled diabetes type 2, CAD and chronic renal insufficiency, presented to ER with chief complaints of having chest pain. In ER, blood work showed glucose over 400, Cr 2.2, AG 19, bicarb 24, troponin < 0.01 and pH 7.42. At home, he was on Byetta 10 mcg twice a day, Lantus 24 units daily and Novolog 20 units before meals x 3 times a day. In ER, he received 3 liters of NS. His FSG was down to 310. Allergies/Medications Allergies: Coded Allergies: lisinopril (Severe, ANGIO EDEMA AND LIP SWELLING 05/19/16) STATINS (ATTACKS BLOOD CELLS 05/17/17) bupropion (UNKNOWN 04/20/18) metformin (kidney damage 12/13/16) atorvastatin (From LIPITOR) (Intermediate, TIRED AND ATTACKS MY BLOOD CELLS 12/30) Home Med List: Albuterol Sulfate (Proair Hfa) 90 MCG HFA.AER.AD 2 PUF INH Q4-6 PRN PRN BRONCHTIIS Amlodipine Besylate 10 MG TABLET 1 TAB PO DAILY HEART (Reported) Aspirin (Lo-Dose Aspirin EC) 81 MG TABLET.DR 1 TAB PO D HEART HEALTH ( Reported) Buspirone HCl 15 MG TABLET 1 TAB PO TID MENTAL HEALTH (Reported) Cholecalciferol (Vitamin D3) (Vitamin D) 2,000 UNIT CAPSULE 1 CAP PO DAILY SUPPLEMENT (Reported) Dicyclomine HCl 10 MG CAPSULE 1 CAP PO TID BOWEL [id number] (Reported) Exenatide (Byetta) 10 MCG/0.04 ML PEN.INJCTR 10 MCG SC BID DIABETES (Reported ) Gabapentin 100 MG CAPSULE 1 CAP PO TID PERIPERAL NEUROPATHY (Reported) Gemfibrozil 600 MG TABLET 1 TAB PO BID CHOLESTEROL (Reported) Insulin Aspart (Novolog) 100 UNIT/ML VIAL 20 UNITS SC TID DIABETES (Reported) Insulin Glargine,Hum.rec.anlog (Lantus Solostar) 100 UNIT/ML (3 ML) INSULN.PEN 24 UNIT SC QPM DIABETES (Reported) Meloxicam 7.5 MG TABLET 1 TAB PO DAILY PAIN (Reported) Nitroglycerin 0.4 MG TAB.SUBL 1 TAB SL DAILY PRN CHEST PAIN (Reported) 1st sign of attack; may repeat every 5 minutes until relief; if pain persists after 3 tablets in 15 minutes, prompt medical att Pantoprazole Sodium 40 MG TABLET.DR 1 TAB PO DAILY GI (Reported) Paroxetine HCl (Paxil) 40 MG TABLET 1 TAB PO DAILY MENTAL HEALTH (Reported) Pravastatin Sodium 40 MG TABLET 1 TAB PO QPM CHOLESTEROL (Reported) Sertraline HCl (Zoloft) 100 MG TABLET 2 TAB PO QPM MENTAL HEALTH (Reported) Review of Systems Review of Systems Constitutional: Reports: see HPI. Cardiovascular: Reports: chest pain. Respiratory: Denies: short of breath. GI: Reports: abdominal pain. Hematologic/Endocrine: Reports: polyuria, polydipsia. 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 Ambulation: independent IADLs Independent: shopping, housework, finances. Exam & Diagnostic Data Last 24 Hrs of Vital Signs/I&O Vital Signs Date Time Temp Pulse Resp B/P B/P Pulse O2 O2 Flow FiO2 Mean Ox Delivery Rate 04/20 1040 80 18 115/59 97 Room Air 04/20 1036 81 20 98/49 98 Room Air 04/20 1030 70 20 91/51 97 Room Air 04/20 1020 74 22 126/70 97 Room Air 04/20 0934 97 Room Air 04/20 0917 96.7 81 18 108/76 98 Room Air Intake & Output 04/20 1600 04/20 0800 04/20 0000 Intake Total Output Total Balance Patient 305 lb Weight Weight Reported by Patient Measurement Method Physical Exam General Appearance: no apparent distress Neck: normal inspection Respiratory: lungs clear Cardiovascular: regular rate/rhythm Gastrointestinal: tenderness Extremities: no edema Labs/Kwesi Results: Laboratory Tests 04/20 04/20 1255 1115 Blood Gas Bicarbonate Actual (22 - 26 MEQ/L) 24 Mixed VBG pH (7.31 - 7.41 PH) 7.42 H Mixed VBG pCO2 (41 - 51 TORR) 38 L Mixed VBG O2 Saturation (35 - 45 TORR) 56 H Carboxyhemoglobin (1.5 - 5.0 %) 0.9 L O2 Concentration % RA Chemistry Lactic Acid Pending Miscellaneous Phlebotomy Draw Site LT ARM VENOUS 04/20 04/20 0950 0987 Chemistry Sodium (137 - 145 mmol/L) 130 L Potassium (3.5 - 5.1 mmol/L) 4.7 Chloride (98 - 107 mmol/L) 87 L Carbon Dioxide (22 - 30 mmol/L) 24 Anion Gap (5 - 16) 19 H BUN (9 - 20 mg/dL) 26 H Creatinine (0.7 - 1.2 mg/dL) 2.2 H Estimated GFR (>60 ml/min) 31 L BUN/Creatinine Ratio (7 - 25 %) 11.8 Glucose (65 - 99 mg/dL) 451 H Lactic Acid (0.7 - 2.1 mmol/L) 3.9 H Calcium (8.4 - 10.2 mg/dL) 9.7 Total Bilirubin (0.2 - 1.3 mg/dL) 1.1 AST (17 - 59 U/L) 41 ALT (21 - 72 U/L) 44 Alkaline Phosphatase (< 127 U/L) 94 Troponin I (<0.11 ng/ml) < 0.01 Total Protein (6.3 - 8.2 g/dL) 7.8 Albumin (3.5 - 5.0 g/dL) 4.5 Globulin (1.9 - 4.2 gm/dL) 3.3 Albumin/Globulin Ratio (1.1 - 2.2 %) 1.4 Lipase (23 - 300 U/L) 239 Cancelled Coagulation D-Dimer High Sensitivty (0 - 243 ng/ml) < 200 Hematology CBC w Diff NO MAN DIFF REQ WBC (4.8 - 10.8 /CUMM) 11.1 H RBC (4.70 - 6.10 /CUMM) 5.39 Hgb (14.0 - 18.0 G/DL) 14.9 Hct (42 - 52 %) 44.5 MCV (80.0 - 94.0 FL) 82.7 MCH (27.0 - 31.0 PG) 27.7 MCHC (33.0 - 37.0 G/DL) 33.5 RDW (11.5 - 14.5 %) 12.7 Plt Count (130 - 400 /CUMM) 358 MPV (7.4 - 10.4 FL) 9.4 Gran % (42.2 - 75.2 %) 63.8 Lymphocytes % (20.5 - 51.1 %) 30.0 Monocytes % (1.7 - 9.3 %) 4.6 Eosinophils % (0 - 5 %) 0.9 Basophils % (0.0 - 2.0 %) 0.7 Absolute Granulocytes (1.4 - 6.5 /CUMM) 7.1 H Absolute Lymphocytes (1.2 - 3.4 /CUMM) 3.3 Absolute Monocytes (0.10 - 0.60 /CUMM) 0.5 Absolute Eosinophils (0.0 - 0.7 /CUMM) 0.1 Absolute Basophils (0.0 - 0.2 /CUMM) 0.1 Toxicology Acetone Level (NEGATIVE) NEGATIVE Assessment/Plan Assessment/Plan 52-year-old male with history of poorly controlled diabetes type 2, CAD and chronic renal insufficiency, presented to ER with chief complaints of having chest pain. Currently he is kept NPO. He received 3 liters of NS in ER. DM management: 1. start Levemir 15 units twice a day; 2. start Novolog coverage every 4 hours--detail see the inpatient DM order; 3. monitor FSGs; 4. if his nurtritional status changes, please inform me and then I will adjust his insulin regimen accordingly. 5. upon discharge, I will consider changing Byetta to Victoza as he has had hx of CAD and renal insufficiency. Inpatient Diabetes Orders Every 4 Hours: Bolus Insulin: Novolog < 80 mg/dl: no coverage 80-100 mg/dl: no coverage 101-120 mg/dl: no coverage 121-150 mg/dl: no coverage 151-200 mg/dl: 2 units 201-250 mg/dl: 4 units 251-300 mg/dl: 6 units 301-350 mg/dl: 8 units 351-400 mg/dl: 10 units > 400 mg/dl: 12 units Consult Acknowledgment - Thank you for your consult request.
--- NOTE | 2018-04-20 14:10 | History & Physical ---
Ashia Miller 04/20/18 1410: General Information and HPI Source of Information: patient, old records Exam Limitations: no limitations History of Present Illness: Patient is a 52-year-old -[place] male with a past medical history of insulindependent diabetes, heart attack in 2011, no heart procedure/stent, obstructive sleep apnea on CPAP, angina, CAD, glaucoma, and chronic kidney disease. The patient was referred to the ED by his primary care physician because of blood glucose level in the 429. Patient also complains of left-sided chest pain which started a week ago (04/13) since the heat wave, but worsened last night. Pain radiates to the right arm. It is associated with shortness of breath and palpitations. He uses his inhaler more frequently now. He saw Dr. Dunaway and his cone winder on April 14 for a regular checkup. He is also complaining of abdominal pain for the past 1 week the frequency is about once a day and there is no association with food intake. The patient avoids having large meals because he does not want to precipitatye the abdominal pain. Review of symptoms: He also complains of headache nausea, weakness, dizziness seeing double, numbness and tremors of his hands(old), chronic low back pain. No urinary or bowel problems. Patient reports that he saw Dr. Dunaway and his cone winder on April 14 for regular checkup. Allergies/Medications Allergies: Coded Allergies: lisinopril (Severe, ANGIO EDEMA AND LIP SWELLING 05/19/16) STATINS (ATTACKS BLOOD CELLS 05/17/17) bupropion (UNKNOWN 04/20/18) metformin (kidney damage 12/13/16) atorvastatin (From LIPITOR) (Intermediate, TIRED AND ATTACKS MY BLOOD CELLS 12/30) Home Med list Albuterol Sulfate (Proair Hfa) 90 MCG HFA.AER.AD 2 PUF INH Q4-6 PRN PRN BRONCHTIIS Amlodipine Besylate 10 MG TABLET 1 TAB PO DAILY HEART (Reported) Aspirin (Lo-Dose Aspirin EC) 81 MG TABLET.DR 1 TAB PO DAILY heart (Reported) Buspirone HCl 15 MG TABLET 1 TAB PO TID MENTAL HEALTH (Reported) Cholecalciferol (Vitamin D3) (Vitamin D) 2,000 UNIT CAPSULE 1 CAP PO DAILY SUPPLEMENT (Reported) Dicyclomine HCl 10 MG CAPSULE 1 CAP PO TID BOWEL [id number] (Reported) Exenatide (Byetta) 10 MCG/0.04 ML PEN.INJCTR 10 MCG SC BID DIABETES (Reported ) Gabapentin 100 MG CAPSULE 1 CAP PO TID PERIPERAL NEUROPATHY (Reported) Gemfibrozil 600 MG TABLET 1 TAB PO BID CHOLESTEROL (Reported) Insulin Aspart (Novolog) 100 UNIT/ML VIAL 20 UNITS SC TID DIABETES (Reported) Insulin Glargine,Hum.rec.anlog (Lantus Solostar) 100 UNIT/ML (3 ML) INSULN.PEN 24 UNIT SC QPM DIABETES (Reported) Meloxicam 7.5 MG TABLET 1 TAB PO DAILY PAIN (Reported) Nitroglycerin 0.4 MG TAB.SUBL 1 TAB SL DAILY PRN CHEST PAIN (Reported) 1st sign of attack; may repeat every 5 minutes until relief; if pain persists after 3 tablets in 15 minutes, prompt medical att Pantoprazole Sodium 40 MG TABLET.DR 1 TAB PO DAILY GI (Reported) Paroxetine HCl (Paxil) 40 MG TABLET 1 TAB PO DAILY MENTAL HEALTH (Reported) Pravastatin Sodium 40 MG TABLET 1 TAB PO QPM CHOLESTEROL (Reported) Sertraline HCl (Zoloft) 100 MG TABLET 2 TAB PO QPM MENTAL HEALTH (Reported) Past History Travel History Traveled to [place] past 21 day No Medical History Neurological: NONE EENT: NONE, glaucoma Cardiovascular: hyperlipidemia, myocardial infarction Respiratory: NONE Gastrointestinal: NONE Hepatic: NONE Renal: NONE Musculoskeletal: NONE Psychiatric: anxiety, depression Endocrine: diabetes Blood Disorders: NONE Cancer(s): NONE FRONT MAN/Reproductive: NONE History of MRSA: No History of VRE: No History of CDIFF: No Surgical History Surgical History: lumpectomy, ART R KNEE Past Family/Social History Family History Relations & Conditions if any FATHER FH: hypertension Relation not specified for: Diabetes mellitus in brother Stroke or transient ischemic attack in mother Type 2 diabetes mellitus in sister Psychosocial History Smoking Status: Never Smoked ETOH Use: occasional use Illicit Drug Use: denies illicit drug use Living Will? Full code status Functional Ability ADLs Independent: dressing, eating, toileting, bathing. Ambulation: independent, cane IADLs Independent: shopping, housework, finances. Review of Systems Review of Systems Constitutional: Reports: see HPI. Exam & Diagnostic Data Last 24 Hrs of Vital Signs/I&O Vital Signs Date Time Temp Pulse Resp B/P B/P Pulse O2 O2 Flow FiO2 Mean Ox Delivery Rate 04/20 1823 60 116/78 07/05 1700 97.5 60 18 116/78 97 Room Air 07/05 1534 97.6 67 18 117/70 96 Room Air 07/05 1330 97.6 66 18 118/67 98 Room Air 07/05 1040 80 18 115/59 97 Room Air 07/05 1036 81 20 98/49 98 Room Air 07/05 1030 70 20 91/51 97 Room Air 07/05 1020 74 22 126/70 97 Room Air 07/05 0934 97 Room Air 07/05 0917 96.7 81 18 108/76 98 Room Air Intake & Output 04/20 1600 07/ 0800 07/ 0000 Intake Total Output Total Balance Patient 305 lb Weight Weight Reported by Patient Measurement Method Physical Exam General Appearance Alert, Oriented X3, Cooperative, No Acute Distress Skin No Rashes, No Breakdown, No Significant Lesion Skin Temp/Moisture Exam: Cool/Dry Sepsis Skin Exam (color): Normal for Ethnicity HEENT Atraumatic, PERRLA Neck Supple Cardiovascular Regular Rate, Normal S1, Normal S2 Lungs Clear to Auscultation, Normal Air Movement Abdomen Normal Bowel Sounds, generalized tenderness Neurological Normal Speech, Strength at 5/5 X4 Ext, Normal Tone Extremities No Clubbing, No Cyanosis, No Edema Vascular Normal Pulses Sepsis Peripheral Pulse Location: Dorsalis Pedis Sepsis Peripheral Pulse Exam: Normal Assessment/Plan Assessment: Patient is a 52-year-old -[place] male with a past medical history of insulindependent diabetes, heart attack in 2011, no procedure no stent. obstructive sleep apnea for the past 35 years on CPAP, angina and CAD glaucoma, chronic kidney disease The patient was referred to the ED by his primary care physician because of blood glucose level in the 429. Patient also complains of left-sided chest pain which started a week ago (04/13) since the heat wave, but worsened last night. Pain radiates to the right arm. It is associated with shortness of breath and palpitations. He uses his inhaler more frequently now. He saw Dr. Dunaway and his cone winder on April 14 for a regular checkup. He is also complaining of abdominal pain for the past 1 week the frequency is about once a day and there is no association with food intake. The patient avoids having large meals because he does not want to precipitatye the abdominal pain. Vitals on admission temp of 96.7, pulse 81, respiration 18, BP 108/76, 98% on room air. Labs: WBC 11.1, 0.9, hematocrit 44.9, platelets 358. Sodium 130, potassium 4.7, chloride 87, bicarb 24, BUN 26, creatinine 2.2. CT abdomen and pelvis: No acute abnormality in the chest abdomen and pelvis. A & P: -Put on observation on Tele floor CODE STATUS: Full code Core Measures/Misc (07/03) Cerebrovascular Accident CVA/TIA Diagnosis: No Sepsis (View protocol) If YES complete Sepsis Event Note If YES complete Sepsis Event Note [facility] Assessment/Plan As Ranked By This Provider Problem List: 1. Diabetes 2. Acute kidney failure 3. Chest pain, unspecified Core Measures/Misc (07/03) Acute Coronary Syndrome ACS Diagnosis: No Congestive Heart Failure Congestive Heart Failure Diagnosis No Cerebrovascular Accident CVA/TIA Diagnosis: No VTE (View Protocol) VTE Risk Factors Age>40 No Mechanical VTE Prophylaxis d/t Other No VTE Pharm Prophylaxis d/t Other Sepsis (View protocol) Sepsis Present: No If YES complete Sepsis Event Note If YES complete Sepsis Event Note Resident Review Statement Resident Statement: examined this patient, discussed with product management intern, agreed with product management intern Other Findings: Patient is a 52 year old male with PMH of CKD, DM on insulin since 2017, depression, hypertension, hyperlipidemia, previous NH in 2012, agioedema secondary to lisiopril came with chief complain of chest pain. His cone winder is Dr. Dunaway. Patient was in usual state of health until a week ago. According to the patient because of increased humidity he was feeling dizzy, headache on and off, double vision, decreased sleep, chest pain, decreased appetite. Patient has chest pain on and off of 7-8 x 10 in intensity with no radiation. Last night patient's fAN did not work, hence he slept in the water tub for 4 hours. He went to his primary care physician today who found his blood sugar to be around 427 hence given his symptoms and elevated blood sugar sent to [facility]. For the past 3 days patient has similar type of pain starting from left side of the lower abdomen going all the way up to the sub- sternum and radiated to the right. Patient tried to take sublingual nitroglycerin for the last 3 days with relief after 30 minutes. Patient endorses increased shortness of breath and started using his inhaler more frequently in the past 1 week. Patient also endorses left lower abdominal pain on and off which is not related to food intake or position. He denies palpitation, fever, chills, nausea, constipation, diarrhea, fall, loss of consciousness, she says during the same time. Patient endorses lower back pain which is chronic. He also had left knee partial replacement for his arthritis and uses bilateral braces on and off. Patient follows [facility]. Patient says his latest HbA1c is 12.4. Follows Dr. Cervantes for his CKD. Past surgical history-lumpectomy done in the right lower axilla most likely the description he gives looks like lipoma. Right knee replacement done. Family history-sister and brother both diabetic. Mom had stroke. Social history-not a smoker. 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 Admission vitals Temperature 97.6, pulse rate 81, respiratory rate 20, blood pressure 98/49----> 118/67, saturating 98 at room air. Admission labs WBC 11.1, hemoglobin 14.9, platelet count 358, sodium 130, potassium 4.7, chloride 87, CO2 24, anion gap 19, BUN 26, creatinine 2.2, glucose 451, lactic acid 3.9---1.9,, calcium 9.7, troponin 0 0.01.R-jnzsk-feey than 200, urine- acetone negative Venous blood gas Bicarb 24, PCO2 38, pH 7.42 Imaging CTA/abdomen and pelvis CT No acute abnormality in the chest, abdomen, or pelvis. Asymmetric fat stranding of the right lateral axilla, present previously as well. Most likely this corresponds to the lipomatous lesion seen on prior ultrasound 12/13/2016. Question interval surgery. ED treatment Normal saline bolus-3 L, aspirin 325 once, sublingual nitroglycerin 0.4 mg tablet once. Physical examination Patient well-built, obese lying comfortably in his bed. Not appear to be in acute distress. He is alert oriented 3. Head To Toe-no external abnormalities. Right axilla 7 cm scar seen. [Patient had lipoma resection done last year] Cardiovascular [id number] no murmur Respiratory system-normal vesicular breath sounds No CVA tenderness Abdomen-obese, soft. Bowel sounds heard. [employer]-strength 5 x 5. Cranial nerves [id number] Blood pressure right arm 115/70, left arm-118/68 Home medication [place] Amlodipine 10 mg daily Aspirin 81 mg daily Buspirone 15 mg 3 times daily Dicyclomine 10 mg 3 times daily exenatide- sc bid -held Gabapentin 100 3 times daily Gemfibrozil 600 twice daily-held NovoLog 20 units subcu 3 times daily-held Insulin glargine 24 units every afternoon held Meloxicam 7.5 mg 1 tablet daily-held Nitroglycerin 1 tablet sublingual daily Paroxetine 40 mg daily Sertraline 100 2 every afternoon Assessment and plan 1. Chest pain for evaluation 2. Uncontrolled diabetes 3. AKA on chronic kidney disease 4. Hyperlactatemia-resolving 5. Hyponatremia most likely secondary due to uncontrolled diabetes * we will observe him in telemetry if his chest pain is ongoing we will convert this to full admit. * serial troponin and EKG though his nature of chest pain unlikely cardiac in nature. * we will get cardiology consult and echo. Pt last stress test in Oct 2016 was negative. * We will get endocrinology consult for uncontrolled diabetes and check lipid and hba1c. hold oral hypoglycemic held. accuchecks and novolog sliding scale, levemir insulin. * VALENTINO- looks most likely prerenal - Pt got 3 l in ED. we will encourage po intake and recheck BEP in am. * Hyperlactatemia can be secondary to decreased clearance (VALENTINO) or hypoperfusion (pt had low BP upon admission). pt got 3 l of NS in ED hopefully his LA comes down with fliud resuscitation. we will repeat one at 4 pm. * hyponatremia-elevated blood glucose can cause increase in serum osmolarity and cause water to exit cells causing dilutional hyponatremia. we will follow up Na tomorrow morning. PT HAS SEVERE ANGIOEDEMA FOR VIKAS INHIBITORS. PLEASE AVOID VIKAS/ARBS. code-full code diet-heart healthy diet gi prophylaxis- omeprazole dvt prophylaxis alps. Dioni MCKINNON,George 04/20/18 1511: Core Measures/Misc (07/03) Sepsis (View protocol) If YES complete Sepsis Event Note If YES complete Sepsis Event Note Attending MD Review Statement Attending Statement Attending MD Statement: examined this patient, discuss w/resident/PA/QUALITY LAB TECHNICIAN, agreed w/resident/PA/QUALITY LAB TECHNICIAN, reviewed EMR data (avail), discussed with nursing, discussed with case mgmt, amended to note Attending Assessment/Plan: Patient is a 52-year-old male with history of insulin-dependent diabetes mellitus and coronary artery disease who presents with complaints of chest pain. He attributes the discomfort to the recent heat wave. Reports that symptoms became aggravated after his fan broke down. In the ER was found to have markedly elevated glucose levels. EKG showed no ischemic changes. First troponin was negative. Was referred to the medical service for further management. On examination resting comfortably not in any acute distress. He is very jovial. Denies any symptoms currently. Problems: 1. Atypical chest pain in patient with history of coronary artery disease status post myocardial infarction in 2011. 2. Uncontrolled insulin-dependent diabetes mellitus 3. Chronic kidney disease stage III. Plan: -Admit to inpatient General medical service. -Trend cardiac enzymes. Obtain echocardiogram. Monitor on the telemetry service. -The absence of evidence of myocardial necrosis on on his blood work and absence of ischemia on EKG despite the prolonged duration of chest pain makes cardiac etiology less likely. Stress test done last year was negative. Follow-up with the cardiology service the extent of cardiac testing to be carried out this time around. -Pulmonary embolism also appears lower in the differential given his negative d- dimer level. Denies any relationship of his pain with meals. He has no history of peptic ulcer disease. -Blood glucose levels are poorly controlled despite compliance with his medication regimen according to the patient. Follow-up recommendations of the endocrinology service at the time of discharge for long-term follow-up. -Hypokalemia is likely due to his elevated glucose levels. Repeat serum chemistry in a.m.
--- NOTE | 2018-04-20 15:24 | Cons- Cardiology ---
General Information and HPI Consulting Request Date of Consult: 04/20/18 Requested By: Gurpreet Felipe James Reason for Consult: Chest pain. Source of Information: patient, old records Exam Limitations: poor historian History of Present Illness: Mr. Braxton Fleming is a 51-year-old -B[place] male with a history of obesity, hypertension, dyslipidemia, diabetes mellitus (insulin requiring), chronic kidney disease, previously documented nephrolithiasis, diverticular disease, previous syncope, anxiety disorder, depression, medical noncompliance, chest pain syndrome, and a vague history of "heart attack" around 2001 who presented to the ED this morning on the recommendation of his primary care provider, EDWARDO Moreau after he related poorly controlled blood glucose readings and recurrent chest discomfort. He began feeling poorly this past , 04/13/2018 afternoon with decreased appetite secondary to the very hot weather we had been experiencing, along with severe abdominal "cramping" that would radiate up into his chest without associated symptoms or radiation. He recalls the chest pain lasting "several hours" before resolving. His fans and air conditioner apparently were not functioning properly. He does state that he drank "gallons" of water since he began to feel poorly. Over the weekend he did not feel quite as poorly, but on 04/16/2018 he experienced a similar prolonged episode of chest discomfort that was "relieved" approximately an hour after he took a sublingual nitroglycerin. Similar scenarios occurred on 04/17/2018, and 04/18/2018 with the abdominal/chest "cramping" relieved an hour or so after he took sublingual NTG 1. He felt improved on 04/19/2018, but this morning further symptoms of chest discomfort recurred and his primary care provider felt ED evaluation was warranted. In the ED he received sublingual nitroglycerin 0.41 with "relief" of the severe abdominal/chest cramping approximately one half hour after it was administered. His ECG revealed no acute changes from prior tracings and his initial troponin I was 0.01 ng/ml. His last pharmacologic stress test was performed here on 10/28/2016 and revealed : no definite perfusion abnormalities, some decreased activity in the inferior wall that was felt secondary to attenuation by the adjacent diaphragm, and normal left ventricular wall motion and ejection fraction. His last echocardiogram was performed here on 05/20/2016 and revealed: A hyperdynamic EF of 80% with impaired LV relaxation, and mild left ventricular hypertrophy. Additional past history includes: previous bradycardia during a 2014 admission for atypical chest pain felt secondary to pain medications. At that time Mr. fleming also stated that his heart "stopped 3 times" during his "heart attack" in 2001. He was also told he had no heart muscle damage and did not undergo a cardiac catheterization. Allergies/Medications Allergies: Coded Allergies: lisinopril (Severe, ANGIO EDEMA AND LIP SWELLING 05/19/16) STATINS (ATTACKS BLOOD CELLS 05/17/17) bupropion (UNKNOWN 04/20/18) metformin (kidney damage 12/13/16) atorvastatin (From LIPITOR) (Intermediate, TIRED AND ATTACKS MY BLOOD CELLS 12/30) Home Med List: Albuterol Sulfate (Proair Hfa) 90 MCG HFA.AER.AD 2 PUF INH Q4-6 PRN PRN BRONCHTIIS Amlodipine Besylate 10 MG TABLET 1 TAB PO DAILY HEART (Reported) Aspirin (Lo-Dose Aspirin EC) 81 MG TABLET.DR 1 TAB PO DAILY heart (Reported) Buspirone HCl 15 MG TABLET 1 TAB PO TID MENTAL HEALTH (Reported) Cholecalciferol (Vitamin D3) (Vitamin D) 2,000 UNIT CAPSULE 1 CAP PO DAILY SUPPLEMENT (Reported) Dicyclomine HCl 10 MG CAPSULE 1 CAP PO TID BOWEL [id number] (Reported) Exenatide (Byetta) 10 MCG/0.04 ML PEN.INJCTR 10 MCG SC BID DIABETES (Reported ) Gabapentin 100 MG CAPSULE 1 CAP PO TID PERIPERAL NEUROPATHY (Reported) Gemfibrozil 600 MG TABLET 1 TAB PO BID CHOLESTEROL (Reported) Insulin Aspart (Novolog) 100 UNIT/ML VIAL 20 UNITS SC TID DIABETES (Reported) Insulin Glargine,Hum.rec.anlog (Lantus Solostar) 100 UNIT/ML (3 ML) INSULN.PEN 24 UNIT SC QPM DIABETES (Reported) Meloxicam 7.5 MG TABLET 1 TAB PO DAILY PAIN (Reported) Nitroglycerin 0.4 MG TAB.SUBL 1 TAB SL DAILY PRN CHEST PAIN (Reported) 1st sign of attack; may repeat every 5 minutes until relief; if pain persists after 3 tablets in 15 minutes, prompt medical att Pantoprazole Sodium 40 MG TABLET. 1 TAB PO DAILY GI (Reported) Paroxetine HCl (Paxil) 40 MG TABLET 1 TAB PO DAILY MENTAL HEALTH (Reported) Pravastatin Sodium 40 MG TABLET 1 TAB PO QPM CHOLESTEROL (Reported) Sertraline HCl (Zoloft) 100 MG TABLET 2 TAB PO QPM MENTAL HEALTH (Reported) Review of Systems Review of Systems: A 14 point system review was obtained was noncontributory, other than as above. 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 Ambulation: independent IADLs Independent: shopping, housework, finances. Exam & Diagnostic Data Vital Signs and I&O Vital Signs Date Time Temp Pulse Resp B/P B/P Pulse O2 O2 Flow FiO2 Mean Ox Delivery Rate 04/20 1330 97.6 66 18 118/67 98 Room Air 07/05 1040 80 18 115/59 97 Room Air 07/05 1036 81 20 98/49 98 Room Air 07/05 1030 70 20 91/51 97 Room Air 07/05 1020 74 22 126/70 97 Room Air 07/05 0934 97 Room Air 07/05 0917 96.7 81 18 108/76 98 Room Air Intake & Output 04/20 1600 04/20 0800 04/20 0000 04/19 1600 04/19 0800 04/19 0000 Intake Total Output Total Balance Patient 305 lb Weight Weight Reported by Patient Measurement Method Physical Exam: Well-developed, obese middle-aged -Bangladeshi male in no acute distress with nasal oxygen in place. Vital signs: See above. HEENT: Normocephalic, atraumatic, EOMI, slightly dry mucous membranes. Neck: No JVD, no bruits. Lungs: Clear to auscultation bilaterally. Heart: S1, S2 with no murmur, gallop, or rub. PMI not well felt. Abdomen: Soft, nontender, positive bowel sounds. Extremities: No edema. Labs/Kwesi Results: Laboratory Tests 04/20 04/20 04/20 7175 [id number] 0955 Blood Gas Bicarbonate Actual (22 - 26 MEQ/L) 24 Mixed VBG pH (7.31 - 7.41 PH) 7.42 H Mixed VBG pCO2 (41 - 51 TORR) 38 L Mixed VBG O2 Saturation (35 - 45 TORR) 56 H Carboxyhemoglobin (1.5 - 5.0 %) 0.9 L O2 Concentration % RA Chemistry Sodium (137 - 145 mmol/L) 130 L Potassium (3.5 - 5.1 mmol/L) 4.7 Chloride (98 - 107 mmol/L) 87 L Carbon Dioxide (22 - 30 mmol/L) 24 Anion Gap (5 - 16) 19 H BUN (9 - 20 mg/dL) 26 H Creatinine (0.7 - 1.2 mg/dL) 2.2 H Estimated GFR (>60 ml/min) 31 L BUN/Creatinine Ratio (7 - 25 %) 11.8 Glucose (65 - 99 mg/dL) 451 H Hemoglobin A1c (4.2 - 5.8 %) 11.7 H Lactic Acid (0.7 - 2.1 mmol/L) 1.9 3.9 H Calcium (8.4 - 10.2 mg/dL) 9.7 Total Bilirubin (0.2 - 1.3 mg/dL) 1.1 AST (17 - 59 U/L) 41 ALT (21 - 72 U/L) 44 Alkaline Phosphatase (< 127 U/L) 94 Troponin I (<0.11 ng/ml) < 0.01 Total Protein (6.3 - 8.2 g/dL) 7.8 Albumin (3.5 - 5.0 g/dL) 4.5 Globulin (1.9 - 4.2 gm/dL) 3.3 Albumin/Globulin Ratio (1.1 - 2.2 %) 1.4 Lipase (23 - 300 U/L) 239 TSH (0.270 - 4.200 uIU/mL) 2.980 Thyroxine (T4) (4.5 - 10.9 ug/dL) 9.0 Coagulation D-Dimer High Sensitivty (0 - 243 ng/ml) < 200 Hematology CBC w Diff NO MAN DIFF REQ WBC (4.8 - 10.8 /CUMM) 11.1 H RBC (4.70 - 6.10 /CUMM) 5.39 Hgb (14.0 - 18.0 G/DL) 14.9 Hct (42 - 52 %) 44.5 MCV (80.0 - 94.0 FL) 82.7 MCH (27.0 - 31.0 PG) 27.7 MCHC (33.0 - 37.0 G/DL) 33.5 RDW (11.5 - 14.5 %) 12.7 Plt Count (130 - 400 /CUMM) 358 MPV (7.4 - 10.4 FL) 9.4 Gran % (42.2 - 75.2 %) 63.8 Lymphocytes % (20.5 - 51.1 %) 30.0 Monocytes % (1.7 - 9.3 %) 4.6 Eosinophils % (0 - 5 %) 0.9 Basophils % (0.0 - 2.0 %) 0.7 Absolute Granulocytes (1.4 - 6.5 /CUMM) 7.1 H Absolute Lymphocytes (1.2 - 3.4 /CUMM) 3.3 Absolute Monocytes (0.10 - 0.60 /CUMM) 0.5 Absolute Eosinophils (0.0 - 0.7 /CUMM) 0.1 Absolute Basophils (0.0 - 0.2 /CUMM) 0.1 Miscellaneous Phlebotomy Draw Site LT ARM VENOUS Toxicology Acetone Level (NEGATIVE) NEGATIVE 04/20 0944 Chemistry Lipase Cancelled Diagnostic Data EKG Results 04/20/2018: Sinus rhythm, probable old inferior wall myocardial infarction, and poor precordial R-wave progression. No significant change when compared to earlier tracings. Other Results CT chest/abdomen/pelvis 04/20/2018: 1. No acute abnormality in the chest, abdomen, or pelvis. 2. Asymmetric fat stranding of the right lateral axilla, present previously as well. Most likely this corresponds to the lipomatous lesion seen on prior ultrasound 12/13/2016. Question interval surgery. Assessment/Plan Assessment/Plan [id number] w/ hx of obesity, HTN, HLD, DM (insulin requiring), CKD, previous nephrolithiasis, diverticular disease, previous syncope, anxiety disorder, depression, CP syndrome, medical noncompliance, & a vague history of "heart attack" around 2001 who presented to the ED this a.m. on the rec of his PC provider, EDWARDO Moreau after he c/o poorly controlled DM & recurrent CP. Although Mr. fleming is a risk equivalent/multiple risk factors for CAD, an abnormal ECG, and possible evidence of an old inferior NC on nuclear stress testing, his recurrent episodes of abdominal/chest "cramping" are atypical for ischemia based on their duration, lack of ECG changes, normal troponin, and delayed response to sublingual nitroglycerin. However, prudence dictates at least a period of telemetry observation, serial troponins, follow-up ECGs, etc. The CT of his chest/abdomen/pelvis report is also confusing. The "exam type" states without IV contrast, however, under the "technique" portion of the report , it states that both oral and IV contrast were given. This needs to be sorted out given the patient's VALENTINO on CKD, along with him being on the NSAID, meloxicam. Recommendations: * Telemetry observation, follow-up troponins, follow-up ECGs. * A repeat pharmacologic stress test would be reasonable, but could be performed on an outpatient basis, unless he has further chest discomfort, troponin bump, ECG changes, etc. * Reasonable to repeat an echocardiogram to reassess his left ventricular systolic/diastolic function, degree of LVH, and to assess for segmental wall motion abnormalities, etc. * Suspect a degree of intravascular depletion and recommend IV hydration, discontinuation of the NSAID, avoidance of contrast, etc. Consider nephrology consultation. * Determine whether or not the patient received any oral or IV contrast for the CT of his chest/abdomen/pelvis given conflicting data on report. * Endocrine consultation. * Add magnesium and phosphorus levels to the blood work already drawn. * Check stool for occult blood and if negative continue enteric-coated antiplatelet therapy. * Continue lipid-lowering medications if no contraindication. * Avoid VIKAS inhibitor and angiotensin receptor blockers, given previous suspected angioedema. * DVT prophylaxis. Further recommendations will follow, Thank you. Consult Acknowledgment - Thank you for your consult request.
[2018-04-20 17:00] VITALS: BP 116/78
[2018-04-20 22:24] VITALS: BP 120/80
--- NOTE | 2018-04-21 06:54 | PN- Housestaff ---
Ashia Miller 04/21/18 0654: Subjective Follow-up For: Chest Pain- The patient is in observation. Complaints: no complaints, No CP or belly pain anymore Review of Systems Constitutional: Reports: see HPI. Objective Last 24 Hrs of Vital Signs/I&O Vital Signs Date Time Temp Pulse Resp B/P B/P Pulse O2 O2 Flow FiO2 Mean Ox Delivery Rate 04/21 1421 97.1 63 18 122/70 95 Room Air 04/21 0835 68 120/70 04/21 0800 Room Air 04/21 0721 97.8 59 18 118/66 95 Room Air /05 2224 97.7 67 18 120/80 96 Room Air Intake & Output 04/21 1600 04/21 0800 04/21 0000 Intake Total 560 120 400 Output Total Balance 560 120 400 Intake, Oral 560 120 400 Number 1 0 Bowel Movements Patient 316 lb Weight Weight Bed scale Measurement Method Physical Exam General Appearance: Alert, Oriented X3, Cooperative Skin: No Rashes, No Breakdown, No Significant Lesion Skin Temp/Moisture Exam: Cool/Dry HEENT: Atraumatic Cardiovascular: Regular Rate, Normal S1, Normal S2, No Murmurs Lungs: Clear to Auscultation, Normal Air Movement Abdomen: Normal Bowel Sounds, Soft, No Tenderness Neurological: Normal Speech, Strength at 5/5 X4 Ext, Normal Tone Extremities: No Clubbing, No Cyanosis, No Edema Assessment/Plan Assessment: Patient is a 52-year-old -[place] male with a past medical history of insulindependent diabetes, heart attack in 2011, no heart procedure/stent, obstructive sleep apnea on CPAP, angina, CAD, glaucoma, and chronic kidney disease. The patient was referred to the ED by his primary care physician because of blood glucose level in the 429. Patient also complains of left-sided chest pain which started a week ago (04/13) since the heat wave, but worsened last night. Pain radiates to the right arm. Clarification of CT chest, abd and pelvis: In the notes the technique mentions IV contrast plus oral contrast was given. I called the tech who did the CT scan and she said that contrast was not given as ordered that it was a documentation error. Plan: -antici. D/c tomorrow. - He will get Stress test as an outpt. The absence of evidence of myocardial necrosis on on his blood work and absence of ischemia on EKG despite the prolonged duration of chest pain makes cardiac etiology less likely. 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 Chest pain, unspecified 2. Diabetes Pain Ratin Pain Location: none Pain Goal: Remain pain free Pain Plan: remain pain free Tomorrow's Labs & Rationales: guanakito Wheatley MD,George 04/21/18 1200: Attending MD Review Statement Attending Statement Attending MD Statement: examined this patient, discuss w/resident/PA/MANAGER MARKET DEVELOPMENT, agreed w/resident/PA/MANAGER MARKET DEVELOPMENT, reviewed EMR data (avail), discussed with nursing, discussed with case mgmt, amended to note Attending Assessment/Plan: Patient seen and examined. Very jovial keratometry in any acute distress. No issues overnight. No events on telemetry monitoring. This morning denies any chest pain. Denies shortness of breath or palpitations. Blood glucose levels have improved compared to presentation although still in the 200s. He was evaluated by the endocrinology service today. In regards to his chest pain the cardiology service is recommending that he follow-up in the outpatient for an elective stress test. He has ruled out for ACS in the hospital. We will continue insulin regimen as recommended by the endocrinology service. Once we have his glucose better controlled he may be discharged tomorrow and follow up with cardiology service as an outpatient. He is noted to have very high triglyceride levels. In addition to statin therapy recommend beginning the patient on gemfibrozil as well.
[2018-04-21 07:21] VITALS: BP 118/66
[2018-04-21 07:40] LABS: ABSOLUTE BASOPHIL COUNT 0 /CUMM (0.0-0.2); ABSOLUTE EOSINOPHIL COUNT 0.2 /CUMM (0.0-0.7); ABSOLUTE GRANULOCYTE CT 3.9 /CUMM (1.4-6.5); ABSOLUTE LYMPH COUNT 2.5 /CUMM (1.2-3.4); ABSOLUTE MONOCYTE COUNT 0.5 /CUMM (0.10-0.60); BASOPHIL % 0.3 % (0.0-2.0); EOSINOPHIL % 2.7 % (0-5); HEMATOCRIT 41.1 % (42-52); MEAN CORPUSCULAR HGB 27.9 PG (27.0-31.0); MEAN CORPUSCULAR HGB CONC 33.2 G/DL (33.0-37.0); MEAN CORPUSCULAR VOLUME 83.9 FL (80.0-94.0); MEAN PLATELET VOLUME 10.3 FL (7.4-10.4); PLATELET COUNT 272 /CUMM (130-400); RBC DISTRIBUTION WIDTH 12.9 % (11.5-14.5)
--- NOTE | 2018-04-21 08:06 | PN- Diabetes ---
Assessment/Plan Diabetes Assessment: 52-year-old male with history of poorly controlled diabetes type 2, CAD and chronic renal insufficiency, presented to ER with chief complaints of having chest pain. He feels better. Troponin has been negative. Now he is on consistent carbohydrates diet. He was put on Levemir 15 units twice a day and Novolog coverage every 4 hours. His FSGs were 232, 241, 217 and 234. Plan: 1. increase Levemir to 20 units twice a day; 2. stop Novolog coverage every 4 hours; 3. start Novolog coverage before meals and Novolog coverage at bedtime; detail see the inpatient DM orders; 4. monitor FSGs. will follow. Inpatient Diabetes Orders Before Each Meal: Bolus Insulin: Novolog < 80 mg/dl: no coverage 80-100 mg/dl: 10 units 101-120 mg/dl: 10 units 121-150 mg/dl: 10 units 151-200 mg/dl: 12 units 201-250 mg/dl: 14 units 251-300 mg/dl: 16 units 301-350 mg/dl: 18 units 351-400 mg/dl: 20 units > 400 mg/dl: 22 units Bedtime: Bolus Insulin: Novolog < 80 mg/dl: no coverage 80-100 mg/dl: no coverage 101-120 mg/dl: no coverage 121-150 mg/dl: no coverage 151-200 mg/dl: no coverage 201-250 mg/dl: 2 units 251-300 mg/dl: 3 units 301-350 mg/dl: 4 units 351-400 mg/dl: 5 units > 400 mg/dl: 6 units Subjective Subjective: He feels better this morning. Objective Last 24 Hrs of Vital Signs/I&O Vital Signs Date Time Temp Pulse Resp B/P B/P Pulse O2 O2 Flow FiO2 Mean Ox Delivery Rate 04/21 0721 97.8 59 18 118/66 95 Room Air 07/05 2224 97.7 67 18 120/80 96 Room Air 07/05 1823 60 116/78 07/05 1700 97.5 60 18 116/78 97 Room Air 07/05 1534 97.6 67 18 117/70 96 Room Air 07/05 1330 97.6 66 18 118/67 98 Room Air 07/05 1040 80 18 115/59 97 Room Air 07/05 1036 81 20 98/49 98 Room Air 07/05 1030 70 20 91/51 97 Room Air 04/20 1020 74 22 126/70 97 Room Air 04/20 0934 97 Room Air 04/20 0917 96.7 81 18 108/76 98 Room Air Intake & Output 04/21 1600 04/21 0800 04/21 0000 Intake Total 120 400 Output Total Balance 120 400 Intake, Oral 120 400 Number 0 Bowel Movements Patient 316 lb Weight Weight Bed scale Measurement Method Findings Pertinent Lab/Kwesi Results: Laboratory Tests 04/21 04/21 04/20 04/20 0645 0645 2200 1626 Chemistry Sodium Pending Cancelled Potassium Pending Cancelled Chloride Pending Cancelled Carbon Dioxide Pending Cancelled Anion Gap Pending Cancelled BUN Pending Cancelled Creatinine Pending Cancelled BUN/Creatinine Ratio Pending Cancelled Lactic Acid (0.7 - 2.1 mmol/L) 1.6 Troponin I (<0.11 ng/ml) < 0.01 Triglycerides Pending Cholesterol Pending LDL Cholesterol, Calc Pending HDL Cholesterol Pending Cholesterol/HDL Ratio Pending Hematology CBC w Diff NO MAN DIFF REQ WBC (4.8 - 10.8 /CUMM) 7.0 RBC (4.70 - 6.10 /CUMM) 4.90 Hgb (14.0 - 18.0 G/DL) 13.6 L Hct (42 - 52 %) 41.1 L MCV (80.0 - 94.0 FL) 83.9 MCH (27.0 - 31.0 PG) 27.9 MCHC (33.0 - 37.0 G/DL) 33.2 RDW (11.5 - 14.5 %) 12.9 Plt Count (130 - 400 /CUMM) 272 MPV (7.4 - 10.4 FL) 10.3 Gran % (42.2 - 75.2 %) 55.0 Lymphocytes % (20.5 - 51.1 %) 35.4 Monocytes % (1.7 - 9.3 %) 6.6 Eosinophils % (0 - 5 %) 2.7 Basophils % (0.0 - 2.0 %) 0.3 Absolute Granulocytes (1.4 - 6.5 /CUMM) 3.9 Absolute Lymphocytes (1.2 - 3.4 /CUMM) 2.5 Absolute Monocytes (0.10 - 0.60 /CUMM) 0.5 Absolute Eosinophils (0.0 - 0.7 /CUMM) 0.2 Absolute Basophils (0.0 - 0.2 /CUMM) 0 04/20 04/20 04/20 1525 1255 1115 Blood Gas Bicarbonate Actual (22 - 26 MEQ/L) 24 Mixed VBG pH (7.31 - 7.41 PH) 7.42 H Mixed VBG pCO2 (41 - 51 TORR) 38 L Mixed VBG O2 Saturation (35 - 45 TORR) 56 H Carboxyhemoglobin (1.5 - 5.0 %) 0.9 L O2 Concentration % RA Chemistry Lactic Acid (0.7 - 2.1 mmol/L) 1.9 Phosphorus (2.5 - 4.5 mg/dL) 2.8 Magnesium (1.6 - 2.3 mg/dL) 1.5 L Troponin I (<0.11 ng/ml) < 0.01 Miscellaneous Phlebotomy Draw Site LT ARM VENOUS 04/20 04/20 0950 0944 Chemistry Sodium (137 - 145 mmol/L) 130 L Potassium (3.5 - 5.1 mmol/L) 4.7 Chloride (98 - 107 mmol/L) 87 L Carbon Dioxide (22 - 30 mmol/L) 24 Anion Gap (5 - 16) 19 H BUN (9 - 20 mg/dL) 26 H Creatinine (0.7 - 1.2 mg/dL) 2.2 H Estimated GFR (>60 ml/min) 31 L BUN/Creatinine Ratio (7 - 25 %) 11.8 Glucose (65 - 99 mg/dL) 451 H Hemoglobin A1c (4.2 - 5.8 %) 11.7 H Lactic Acid (0.7 - 2.1 mmol/L) 3.9 H Calcium (8.4 - 10.2 mg/dL) 9.7 Total Bilirubin (0.2 - 1.3 mg/dL) 1.1 AST (17 - 59 U/L) 41 ALT (21 - 72 U/L) 44 Alkaline Phosphatase (< 127 U/L) 94 Troponin I (<0.11 ng/ml) < 0.01 Total Protein (6.3 - 8.2 g/dL) 7.8 Albumin (3.5 - 5.0 g/dL) 4.5 Globulin (1.9 - 4.2 gm/dL) 3.3 Albumin/Globulin Ratio (1.1 - 2.2 %) 1.4 Lipase (23 - 300 U/L) 239 Cancelled TSH (0.270 - 4.200 uIU/mL) 2.980 Thyroxine (T4) (4.5 - 10.9 ug/dL) 9.0 Coagulation D-Dimer High Sensitivty (0 - 243 ng/ml) < 200 Hematology CBC w Diff NO MAN DIFF REQ WBC (4.8 - 10.8 /CUMM) 11.1 H RBC (4.70 - 6.10 /CUMM) 5.39 Hgb (14.0 - 18.0 G/DL) 14.9 Hct (42 - 52 %) 44.5 MCV (80.0 - 94.0 FL) 82.7 MCH (27.0 - 31.0 PG) 27.7 MCHC (33.0 - 37.0 G/DL) 33.5 RDW (11.5 - 14.5 %) 12.7 Plt Count (130 - 400 /CUMM) 358 MPV (7.4 - 10.4 FL) 9.4 Gran % (42.2 - 75.2 %) 63.8 Lymphocytes % (20.5 - 51.1 %) 30.0 Monocytes % (1.7 - 9.3 %) 4.6 Eosinophils % (0 - 5 %) 0.9 Basophils % (0.0 - 2.0 %) 0.7 Absolute Granulocytes (1.4 - 6.5 /CUMM) 7.1 H Absolute Lymphocytes (1.2 - 3.4 /CUMM) 3.3 Absolute Monocytes (0.10 - 0.60 /CUMM) 0.5 Absolute Eosinophils (0.0 - 0.7 /CUMM) 0.1 Absolute Basophils (0.0 - 0.2 /CUMM) 0.1 Toxicology Acetone Level (NEGATIVE) NEGATIVE
--- NOTE | 2018-04-21 12:00 | ECHOCARDIOGRAM REPORT ---
SOBIA TAMEZ Age: 52 : 1965 Gender: M Exam Date: 04/20/2018 19:47 Exam Location: 1 [address] Ht (in): 75 Wt (lb): 305 BSA: 2.76 BP: 118 / 67 Ordering Physician: Natalia Light MD Referring Physician: Jose Dunaway MD Technologist: Raven Mancini [facility] Room Number: 180-01 Indications: CHEST PAIN Rhythm: Sinus Technical Quality: good FINDINGS Left Ventricle Normal left ventricular size with mild left ventricular hypertrophy. Normal systolic function with no obvious regional wall motion abnormalities. Normal left ventricular diastolic filling pattern for age. The ejection fraction is visually estimated at 60%. Right Ventricle The right ventricle is normal in size and function. Right Atrium The right atrium is normal in size. Left Atrium The left atrium is normal in size. The interatrial septum is intact. Mitral Valve The mitral valve is normal in structure and function. There is no mitral regurgitation. Aortic Valve Structurally normal aortic valve without significant sclerosis or stenosis. There is no aortic regurgitation. Tricuspid Valve The tricuspid valve is normal in structure and function. There is no tricuspid regurgitation. Pulmonic Valve Structurally normal pulmonic valve. There is no pulmonic regurgitation. Pericardium Normal pericardium without effusion. No pleural effusion. Great Vessels Normal aortic root dimension. The aortic arch and great vessels are well seen and are normal. CONCLUSIONS 1. Normal EF of 60%. 2. Mild left ventricular hypertrophy. Kirk Nicole M.D. (Electronically Signed) Final Date: 21 April 2018 11:59 MEASUREMENTS (Male / Female) Normal Values 2D ECHO LV Diastolic Diameter PLAX 4.1 cm 4.2 - 5.9 / 3.9 - 5.3 cm LV Systolic Diameter PLAX 2.4 cm 2.1 - 4.0 cm LV Fractional Shortening PLAX 41.5 % 25 - 46 % LV Ejection Fraction 2D Teich 72.8 % IVS Diastolic Thickness 1.5 cm LVPW Diastolic Thickness 1.5 cm LV Relative Wall Thickness 0.7 RV Internal Dim ED PLAX 3.0 cm 1.9 - 3.8 cm LVOT Diameter 2.0 cm Aortic Root Diameter 2.9 cm LA Systolic Diameter LX 3.7 cm 3.0 - 4.0 / 2.7 - 3.8 cm LA Volume 28.0 cm 18 - 58 / 22 - 52 cm Ascending Aorta Diameter 3.5 cm DOPPLER AV Peak Velocity 125.0 cm/s AV Peak Gradient 6.3 mmHg AV Mean Velocity 76.9 cm/s AV Mean Gradient 3.0 mmHg AV Velocity Time Integral 21.2 cm LVOT Peak Velocity 97.8 cm/s LVOT Peak Gradient 3.8 mmHg LVOT Mean Velocity 68.5 cm/s LVOT Mean Gradient 2.0 mmHg LVOT Velocity Time Integral 19.6 cm LVOT Stroke Volume 61.6 cm AV Area Cont Eq vti 2.9 cm AV Area Cont Eq pk 2.5 cm MV Peak Velocity 97.2 cm/s MV Peak Gradient 3.8 mmHg MV Mean Velocity 51.0 cm/s MV Mean Gradient 1.0 mmHg Mitral E Point Velocity 61.7 cm/s Mitral A Point Velocity 66.6 cm/s Mitral E to A Ratio 0.9 MV PHT Velocity 81.4 cm/s MV Deceleration Yell 386.0 cm/s MV Pressure Half Time 63.3 ms MV Area PHT 3.5 cm MV Deceleration Time 320.0 ms PV Peak Velocity 144.0 cm/s PV Peak Gradient 8.3 mmHg PV Mean Velocity 92.2 cm/s PV Mean Gradient 4.0 mmHg PV Velocity Time Integral 24.2 cm LV E' Lateral Velocity 6.2 cm/s Mitral E to LV E' Lateral Ratio 9.9 LV E' Septal Velocity 6.2 cm/s Mitral E to LV E' Septal Ratio 9.9
--- NOTE | 2018-04-21 13:04 | Patient Discharge Instructions ---
Discharge Instructions General Discharge Information You were seen/treated for: chest pain Watch for these problems: Chest pain, shortness of breath, racing of the heart, swelling of the feet Special Instructions: Please follow-up with your primary care physician Dr. Parsons 1 /DR REBOLLEDO week after discharge. 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 Dunaway week after discharge for a stress test. Diet Continue normal diet: No Recommended Diet: Diabetic, Heart Healthy Activity Activity Self Limited: Yes Acute Coronary Syndrome Inclusion Criteria At DC or during hospital stay patient has or had the following: ACS DIAGNOSIS No Discharge Core Measures Meds if any: Prescribed or Continued at Discharge Meds if any: NOT Prescribed or Continued at Discharge Congestive Heart Failure Inclusion Criteria At DC or during hospital stay patient has or had the following: CHF DIAGNOSIS No Discharge Core Measures Meds if any: Prescribed or Continued at Discharge Meds if any: NOT Prescribed or Continued at Discharge Cerebrovascular accident Inclusion Criteria At DC or during hospital stay patient has or had the following: CVA/TIA Diagnosis No Discharge Core Measures Meds if any: Prescribed or Continued at Discharge Meds if any: NOT Prescribed or Continued at Discharge Venous thromboembolism Inclusion Criteria VTE Diagnosis No VTE Type NONE VTE Confirmed by (Test) NONE Discharge Core Measures - Per Current guidelines, there needs to be overlap - treatment for the first 5 days of Warfarin therapy. - If discharged on Warfarin prior to 5 days of - overlap therapy, the patient will need to be - assessed for post discharge needs including - *Post discharge parental anticoagulation - *Warfarin and/or parental anticoagulation education - *Follow up date to check INR post discharge At least 5 days overlap therapy as Inpatient No Meds if any: Prescribed or Continued at Discharge Note: Overlap Therapy is Warfarin and Anticoagulant Meds if any: NOT Prescribed or Continued at Discharge
[2018-04-21 14:21] VITALS: BP 122/70
--- NOTE | 2018-04-21 19:37 | PN- Cardiology ---
Subjective Subjective: * No current chest discomfort or shortness of breath. * creatinine improved to 1.5 * severe dyslipidemia * Normal EF on echo Objective Vital Signs and I&Os Vital Signs Date Time Temp Pulse Resp B/P B/P Pulse O2 O2 Flow FiO2 Mean Ox Delivery Rate 04/21 1421 97.1 63 18 122/70 95 Room Air / 0835 68 120/70 / 0800 Room Air 04/21 0721 97.8 59 18 118/66 95 Room Air 04/20 2224 97.7 67 18 120/80 96 Room Air Intake & Output 04/21 1600 04/21 0800 04/21 0000 04/20 1600 04/20 0800 04/20 0000 Intake Total 560 120 400 Output Total Balance 560 120 400 Intake, Oral 560 120 400 Number 1 0 Bowel Movements Patient 316 lb 305 lb Weight Weight Bed scale Reported by Patient Measurement Method Physical Exam: General: WD/obese male in NAD; alert and oriented x 3 HEENT: NC/AT, PERRL, EOMI Neck: no JVD Heart: RRR Lungs: clear bilaterally Extremities: no edema Assessment/Plan Assessment/Plan * This patient has multiple risk factors for coronary artery disease but his chest discomfort was atypical with normal cardiac enzymes despite prolonged discomfort and no ECG changes. He also had a stress test within the year that was negative for ischemia. At the present time his discomfort has abated. We should treat his risk factors aggresively and I would continue a statin. This patient is stable for discharge from a cardiac standpoint with a plan for outpatient stress test. Continue telemetry? No
[2018-04-21 22:26] VITALS: BP 116/70
[2018-04-22 06:59] VITALS: BP 102/58
--- NOTE | 2018-04-22 08:07 | PN- Housestaff ---
Lavon Spivey 04/22/18 08: Subjective Follow-up For: CHEST PAIN (OBS) Subjective: Patient seen resting comfortably in the bed, he is eager to go home. Reports symptoms resolved, denies chest pain denies shortness of breath, denies palpitations. Patient not complaining of abdominal pain, nausea or vomiting. Review of Systems Constitutional: Denies: chills, diaphoresis, fever. Cardiovascular: Denies: chest pain, palpitations, syncope. Respiratory: Denies: cough, hemoptysis, short of breath, wheezing. Gastrointestinal: Denies: abdominal pain, nausea, vomiting. Objective Last 24 Hrs of Vital Signs/I&O Vital Signs Date Time Temp Pulse Resp B/P B/P Pulse O2 O2 Flow FiO2 Mean Ox Delivery Rate 04/22 0659 97.6 64 20 102/58 96 04/21 2226 98.7 68 20 116/70 97 04/21 1421 97.1 63 18 122/70 95 Room Air 04/21 0835 68 120/70 Intake & Output 04/22 1600 04/22 0800 04/22 0000 Intake Total 300 300 Output Total Balance 300 300 Intake, Oral 300 300 Patient 144.724 kg Weight Physical Exam General Appearance: Alert, Oriented X3, Cooperative, No Acute Distress Neck: Supple, No JVD, No thryomegaly Cardiovascular: Regular Rate, Normal S1, Normal S2, No Murmurs Lungs: Clear to Auscultation Current Medications: Current Medications Sig/Aris Start time Last Medication Dose Route Stop Time Status Admin Acetaminophen 650 MG ONCE ONE 04/21 1430 DC 04/21 PO 04/21 1431 1423 Albuterol Sulfate 2 PUF Q4-6 PRN PRN 04/20 1530 AC INH Amlodipine Besylate 10 MG DAILY 04/20 1525 AC 04/21 PO 0835 Aspirin Buffered 81 MG DAILY 04/20 1525 AC 04/21 PO 0833 Atorvastatin Calcium 80 MG 1700 04/21 1700 AC PO Buspirone HCl 15 MG TID 04/20 1526 AC 04/21 PO 205 Cholecalciferol 2,000 IU DAILY 04/21 1311 AC 04/21 PO 1422 Dicyclomine HCl 10 MG TID PRN 04/20 1526 AC PO Docusate Sodium 100 MG BID 04/21 0900 AC 04/21 PO 205 Gabapentin 100 MG TID 04/20 1526 AC 04/21 PO 2051 Gemfibrozil 600 MG BID 04/21 0900 AC 04/21 PO 2051 Heparin Sodium 5,000 UNIT Q8 04/20 2300 AC 04/22 (Porcine) SC 0639 Insulin Aspart 0 AC & AT BEDTIME 04/21 0801 AC 04/21 SC 1708 Insulin Detemir 20 UNITS BID 04/21 0900 AC 04/21 SC 2103 Nitroglycerin 0.4 MG ONCE PRN 04/20 1545 AC SL Omeprazole 40 MG DAILY AC 04/20 1530 AC 04/22 PO 0638 Polyethylene Glycol 17 GM DAILY 04/21 0952 AC PO Pravastatin Sodium 40 MG 1700 04/20 1700 DC 04/20 PO 1826 Sertraline HCl 200 MG QPM 04/20 2100 AC 04/21 PO 2050 Last 24 Hrs of Lab/Kwesi Results Last 24 Hrs of Labs/Mics: Laboratory Tests 04/22/18 0630: Sodium Pending, Potassium Pending, Chloride Pending, Carbon Dioxide Pending, Anion Gap Pending, BUN Pending, Creatinine Pending, BUN/Creatinine Ratio Pending Assessment/Plan Assessment: Patient is a 52-year-old -Stateless male with a past medical history of insulindependent diabetes, heart attack in 2011, no heart procedure/stent, obstructive sleep apnea on CPAP, angina, CAD, glaucoma, and chronic kidney disease. Patient seen for chest pain workup as well as diabetes management. Patient's discharge pending, he is instructed to follow-up with motorcycle fabricator as an outpatient. Problem List: 1. Chest pain, unspecified 2. Diabetes Pain Ratin Pain Location: NONE Pain Goal: Pain 4 or less Pain Plan: PAIN RESOLVED Tomorrow's Labs & Rationales: FOR CHAUNCEY Wheatley MD,Estevanugbengradha 04/22/18 1023: Attending MD Review Statement Attending Statement Attending MD Statement: examined this patient, discuss w/resident/PA/LEATHER SCRUBBER, agreed w/resident/PA/LEATHER SCRUBBER, reviewed EMR data (avail), discussed with nursing, discussed with case mgmt, amended to note Attending Assessment/Plan: Patient seen and examined. Resting comfortably not in any acute distress. No issues overnight. No events on telemetry monitoring overnight. He remains pain -free this morning. He is eager to go home. Blood glucose levels IN the 200s. Case was discussed with endocrinology service. He is a suicide scale has been adjusted and his glargine insulin has been increased to twice daily. His Byetta has been discontinued. He has been instructed to follow-up with the endocrinology service as an outpatient. He will also follow-up with his pharmacy picking tech Dr. Nicole as an outpatient.
[2018-04-22 09:08] VITALS: BP 140/80
[2018-04-22] MEDS ORDERED: LANTUS SOL100 UNIT/1 SC ×2 (10:02→10:06)
[2018-04-22] MEDS ORDERED: NOVOLOG100 UNIT/2 SC ×2 (10:02→10:06)
--- NOTE | 2018-04-22 11:37 | PN- Diabetes ---
Assessment/Plan Diabetes Assessment: 52-year-old male with history of poorly controlled diabetes type 2, CAD and chronic renal insufficiency, presented to ER with chief complaints of having chest pain. He feels better. Troponin has been negative. Now he is on consistent carbohydrates diet. He was put on Levemir 20 units twice a day, Novolog coverage before meals and Novolog coverage at bedtime. His FSGs were 234, 264, 191, 151 and 270. He had snacks last night. Plan: Discharge plan for DM: 1. Lantus 20 units twice a day; 2. Novolog coverage before meals and Novolog coverage at bedtime: Before Each Meal: Bolus Insulin: Novolog < 80 mg/dl: no coverage 80-100 mg/dl: 10 units 101-120 mg/dl: 10 units 121-150 mg/dl: 10 units 151-200 mg/dl: 12 units 201-250 mg/dl: 14 units 251-300 mg/dl: 16 units 301-350 mg/dl: 18 units 351-400 mg/dl: 20 units > 400 mg/dl: 22 units Bedtime: Bolus Insulin: Novolog < 80 mg/dl: no coverage 80-100 mg/dl: no coverage 101-120 mg/dl: no coverage 121-150 mg/dl: no coverage 151-200 mg/dl: no coverage 201-250 mg/dl: 2 units 251-300 mg/dl: 3 units 301-350 mg/dl: 4 units 351-400 mg/dl: 5 units > 400 mg/dl: 6 units 3. monitor FSGs x 4 times a day; 4. diet control;stop Byetta; 5. f/u in office after discharge; I will consider putting him on victoza daily or ozempic once a week and then we will adjust his insulin regimen accordingly. Patient was suggested to call office for an appointment. Subjective Subjective: He is going home today. Objective Last 24 Hrs of Vital Signs/I&O Vital Signs Date Time Temp Pulse Resp B/P B/P Pulse O2 O2 Flow FiO2 Mean Ox Delivery Rate 04/22 0908 80 140/80 04/22 0659 97.6 64 20 102/58 96 04/21 2226 98.7 68 20 116/70 97 04/21 1421 97.1 63 18 122/70 95 Room Air Intake & Output 04/22 1600 04/22 0800 04/22 0000 Intake Total 300 300 Output Total Balance 300 300 Intake, Oral 300 300 Patient 319 lb Weight Findings Pertinent Lab/Kwesi Results: Laboratory Tests 04/22 630 Chemistry Sodium (137 - 145 mmol/L) 136 L Potassium (3.5 - 5.1 mmol/L) 4.5 Chloride (98 - 107 mmol/L) 100 Carbon Dioxide (22 - 30 mmol/L) 27 Anion Gap (5 - 16) 9 BUN (9 - 20 mg/dL) 18 Creatinine (0.7 - 1.2 mg/dL) 1.3 H Estimated GFR (>60 ml/min) 58 L BUN/Creatinine Ratio (7 - 25 %) 13.8
== END 2018-04-22 12:30 ==
LOC: ERH 09:06 → 1NO 13:45 → ERHI 13:45 → EDBEDREQ 15:10 → ENRESERV 16:04 → ENTRNSPT 16:41 → EDTRNSPTSTS 17:04 → 1NO 17:04 → CMPTRNSPT 17:27 → ENPENDDIS 04-22 10:12 → 1NO 04-22 12:30
PROVIDERS: Physician Assistant; Student in an Organized Health Care Education/Training Program
DX: R07.89 Other chest pain (principal); E87.1 Hypo-osmolality and hyponatremia; E66.9 Obesity, unspecified; Z87.442 Personal history of urinary calculi; Z91.14 Patient's other noncompliance with medication regimen; I25.119 Atherosclerotic heart disease of native coronary artery with unspecified angina pectoris; Z79.82 Long term (current) use of aspirin; F41.9 Anxiety disorder, unspecified; F32.9 Major depressive disorder, single episode, unspecified; E78.5 Hyperlipidemia, unspecified; Z79.4 Long term (current) use of insulin; I25.2 Old myocardial infarction; G47.33 Obstructive sleep apnea (adult) (pediatric); E11.22 Type 2 diabetes mellitus with diabetic chronic kidney disease; E11.65 Type 2 diabetes mellitus with hyperglycemia; I12.9 Hypertensive chronic kidney disease with stage 1 through stage 4 chronic kidney disease, or unspecified chronic kidney disease; N18.9 Chronic kidney disease, unspecified; N17.9 Acute kidney failure, unspecified
CPT/HCPCS: 36415; 36592; 74176; 82436; 93005; 93010; 93306; 96372; 96374; 96375; J0131; J1644; J3490

== ENCOUNTER 2018-06-15 04:46 | Inpatient (IN) | payer OTHER ==
[~2018-06-15] VITALS: Ht 190.5 cm; Wt 148.0 kg
[~2018-06-15 04:46] MED LIST changes: +MELOXICAM7.5 M1 PO; +NITROGLYCERIN0.4 M1 SL; +PAXIL40 M1 PO; +PRAVASTATIN SOD40 M2 PO
--- NOTE | 2018-06-15 04:50 | ED CARDIAC/CP/PALPITATIONS ---
History of Present Illness General Chief Complaint: Chest Pain Stated Complaint: BIBA, CHEST PAIN Source: patient Exam Limitations: no limitations Vital Signs & Intake/Output Vital Signs & Intake/Output Vital Signs Date Time Temp Pulse Resp B/P B/P Pulse O2 O2 Flow FiO2 Mean Ox Delivery Rate 06/15 0536 75 20 109/59 95 Room Air 06/15 0453 99.4 69 18 124/75 96 Room Air Allergies Coded Allergies: lisinopril (Severe, ANGIO EDEMA AND LIP SWELLING 05/19/16) STATINS (ATTACKS BLOOD CELLS 05/17/17) bupropion (UNKNOWN 04/20/18) metformin (kidney damage 12/13/16) atorvastatin (From LIPITOR) (Intermediate, TIRED AND ATTACKS MY BLOOD CELLS 12/30) Reconcile Medications Amlodipine Besylate 10 MG TABLET 1 TAB PO DAILY HEART (Reported) Aspirin (Lo-Dose Aspirin EC) 81 MG TABLET.DR 1 TAB PO DAILY heart (Reported) Buspirone HCl 15 MG TABLET 1 TAB PO TID MENTAL HEALTH (Reported) Cholecalciferol (Vitamin D3) (Vitamin D) 2,000 UNIT CAPSULE 1 CAP PO DAILY SUPPLEMENT (Reported) Dicyclomine HCl 10 MG CAPSULE 1 CAP PO TID BOWEL [id number] (Reported) Gabapentin 100 MG CAPSULE 1 CAP PO TID PERIPERAL NEUROPATHY (Reported) Gemfibrozil 600 MG TABLET 1 TAB PO BID CHOLESTEROL (Reported) Insulin Aspart (Novolog) 100 UNIT/ML VIAL 1 INJ SC AC & AT BEDTIME DIABETES ( Reported) Insulin Glargine,Hum.rec.anlog (Lantus Solostar) 100 UNIT/ML (3 ML) INSULN.PEN 20 INJ SC BID DIABETES (Reported) Nitroglycerin 0.4 MG TAB.SUBL 1 TAB SL DAILY PRN CHEST PAIN (Reported) 1st sign of attack; may repeat every 5 minutes until relief; if pain persists after 3 tablets in 15 minutes, prompt medical att Pantoprazole Sodium 40 MG TABLET.DR 1 TAB PO DAILY GI (Reported) Paroxetine HCl (Paxil) 40 MG TABLET 1 TAB PO DAILY MENTAL HEALTH (Reported) Pravastatin Sodium 40 MG TABLET 1 TAB PO QPM CHOLESTEROL (Reported) Sertraline HCl (Zoloft) 100 MG TABLET 2 TAB PO QPM MENTAL HEALTH (Reported) Triage Nurses Notes Reviewed? yes Onset: Gradual Duration: hour(s): Timing: recent history Location: central Radiation: no radiation Activities at Onset: none HPI: 53 YO male, h/o [place] 15 years ago, with 8/10 sscp that awoke him from sleep at 4am. He noted that it felt like a pressure. He took a nitro sl which helped him feel better. The pain was non radiating. He had no diaphoresis, sweatiness, shortness of breath. He is presently with 6/10 chest pain. Past History Travel History Traveled to [place] past 21 day No Medical History Any Pertinent Medical History? 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 No Review of Systems Review of Systems Constitutional: Reports: no symptoms. EENTM: Reports: no symptoms. Respiratory: Reports: no symptoms. Cardiovascular: Reports: no symptoms. GI: Reports: no symptoms. Genitourinary: Reports: no symptoms. Musculoskeletal: Reports: no symptoms. Skin: Reports: no symptoms. Neurological/Psychological: Reports: no symptoms. Hematologic/Endocrine: Reports: no symptoms. Immunologic/Allergic: Reports: no symptoms. All Other Systems: Reviewed and Negative Physical Exam Physical Exam General Appearance: well developed/nourished, mild distress Head: atraumatic, normal appearance Eyes: Bilateral: normal appearance. Ears, Nose, Throat: normal pharynx, normal ENT inspection Neck: normal inspection, supple, full range of motion Respiratory: normal breath sounds, no respiratory distress, parasternal chest wall tenderness Cardiovascular: regular rate/rhythm Gastrointestinal: normal bowel sounds, soft, non-tender, no organomegaly Back: normal inspection, normal range of motion Extremities: normal inspection, normal capillary refill, normal range of motion, no edema Neurologic/Psych: no motor/sensory deficits, awake, alert, oriented x 3 Skin: intact, normal color, warm/dry Core Measures ACS in differential dx? No CVA/TIA Diagnosis No Sepsis Present: No Sepsis Focused Exam Completed? No Progress Differential Diagnosis: unstable angina, [place] vs other. Plan of Care: Orders Procedure Date/time Status Nothing by Mouth 06/15 B Active Saline Lock 06/15 625 Active Misc Message 06/15 625 Active ED Holding Orders 06/15 625 Active Admit to inpatient 06/15 625 Active Vital Signs 06/15 625 Active Code Status 06/15 625 Active TROPONIN LEVEL 06/15 450 Complete LIPASE 06/15 450 Complete HEPATIC FUNCTION PANEL 06/15 450 Complete D-DIMER 06/15 450 Complete CBC WITHOUT DIFFERENTIAL 06/15 450 Complete BASIC METABOLIC PANEL 06/15 450 Complete AMYLASE 06/15 450 Complete EKG 06/15 447 Active Laboratory Tests 06/15/18 0508: Anion Gap 10, Estimated GFR 57 L, BUN/Creatinine Ratio 22.3, Glucose 247 H, Calcium 9.6, Total Bilirubin 0.5, Direct Bilirubin 0.2, AST 33, ALT 42, Alkaline Phosphatase 88, Troponin I < 0.01, Total Protein 7.0, Albumin 3.9, Amylase 79, Lipase 401 H, D-Dimer High Sensitivty < 200, CBC w Diff NO MAN DIFF REQ, RBC 5.02, MCV 83.1, MCH 27.5, MCHC 33.1, RDW 13.6, MPV 8.5, Gran % 69.7, Lymphocytes % 27.2, Monocytes % 2.1, Eosinophils % 0.2, Basophils % 0.8, Absolute Granulocytes 7.8 H, Absolute Lymphocytes 3.1, Absolute Monocytes 0.2, Absolute Eosinophils 0, Absolute Basophils 0.1 Diagnostic Imaging: Viewed by Me: Radiology Read. Discussed w/RAD: Radiology Read. Radiology Impression: PATIENT: SOBIA TAMEZ PRESENT AGE: 53 PATIENT ACCOUNT NO: [id number] : 63 LOCATION: [facility] ORDERING PHYSICIAN: Jm Owen MD SERVICE DATE: 06/15/18 EXAM TYPE: RAD - XRY-PORTABLE CHEST XRAY EXAMINATION: XR PORTABLE CHEST CLINICAL INFORMATION: Chest pain COMPARISON: 04/20/2018 TECHNIQUE: Portable frontal view of the chest was obtained. FINDINGS: Lung volumes are symmetric. No focal consolidation is seen. No evidence of pneumothorax, significant pleural effusion , or pulmonary edema. The cardiomediastinal contour is unremarkable. No acute osseous findings are seen. IMPRESSION: No acute cardiopulmonary findings. DICTATED BY: Sarwat Pope MD DATE/TIME DICTATED:06/15/18535 BUNGY JUMP MASTER:MISTY DATE/TIME TRANSCRIBED:06/15/18535 CONFIDENTIAL, DO NOT COPY WITHOUT APPROPRIATE AUTHORIZATION. <Electronically signed in Other Vendor System> SIGNED BY: Sarwat Pope MD 06/15/18540 Initial ED EKG: low voltage/q waves in II, III, F, Departure Departure Disposition: STILL A PATIENT Condition: Stable Clinical Impression Primary Impression: Chest pain Referrals: Sara Parsons APRN (PCP/Family) Departure Forms: Customer Survey General Discharge Information Admission Note Spoke With: Vickie Levy MD Documentation of Exam: Documentation of any treatments & extenuating circumstances including Concerns Regarding Discharge (functional status, medication knowledge or non-compliance, living conditions, etc.) that warrant an admission rather than observation: pt with h/o [place], diabetes, lipids, htn, presenting with nitro responsive chest pain.... merits serial trops, cards eval, monitoring. Critical Care Note Critical Care Note Critical Care Time: non-applicable
[2018-06-15 05:16] LABS: ABSOLUTE BASOPHIL COUNT 0.1 /CUMM (0.0-0.2); ABSOLUTE EOSINOPHIL COUNT 0 /CUMM (0.0-0.7); ABSOLUTE GRANULOCYTE CT 7.8 /CUMM (1.4-6.5); ABSOLUTE LYMPH COUNT 3.1 /CUMM (1.2-3.4); ABSOLUTE MONOCYTE COUNT 0.2 /CUMM (0.10-0.60); BASOPHIL % 0.8 % (0.0-2.0); EOSINOPHIL % 0.2 % (0-5); GRANULOCYTE % 69.7 % (42.2-75.2); HEMATOCRIT 41.7 % (42-52); MEAN CORPUSCULAR HGB 27.5 PG (27.0-31.0); MEAN CORPUSCULAR HGB CONC 33.1 G/DL (33.0-37.0); MEAN CORPUSCULAR VOLUME 83.1 FL (80.0-94.0); MEAN PLATELET VOLUME 8.5 FL (7.4-10.4); PLATELET COUNT 376 /CUMM (130-400); RBC DISTRIBUTION WIDTH 13.6 % (11.5-14.5); RED BLOOD CELL CT 5.02 /CUMM (4.70-6.10); WHITE BLOOD CELL COUNT 11.2 /CUMM (4.8-10.8)
--- NOTE | 2018-06-15 05:41 | RADIOLOGY REPORT ---
EXAMINATION: XR PORTABLE CHEST CLINICAL INFORMATION: Chest pain COMPARISON: 04/20/2018 TECHNIQUE: Portable frontal view of the chest was obtained. FINDINGS: Lung volumes are symmetric. No focal consolidation is seen. No evidence of pneumothorax, significant pleural effusion, or pulmonary edema. The cardiomediastinal contour is unremarkable. No acute osseous findings are seen. IMPRESSION: No acute cardiopulmonary findings.
[2018-06-15] MEDS ORDERED: TRESIBA FL100 UNIT/1 SQ (07:11)
[2018-06-15] MEDS ORDERED: [UNRECOGNIZED DRUG - REMARK] PO (07:14)
--- NOTE | 2018-06-15 07:48 | History & Physical ---
Rodrick Stokes MD 06/15/18 0747: General Information and HPI History of Present Illness: 53-year-old man with past medical history of CAD, hypertension, hyperlipidemia, obesity, insulin-dependent diabetes mellitus, CKD, anxiety, depression, medication noncompliance, and reported myocardial infarction/cardiac arrest ( 2001) brought in by ambulance for evaluation of chest pain. She was previously admitted to [facility] from 04/20/18-04/22/18 for evaluation of chest pain that improved with nitroglycerin where serial troponin/ EKG were unremarkable. Patient was seen by his account executive whom recommended outpatient stress test. Patient was seen by endocrinology for elevated blood sugar levels for which a insulin regimen was recommended. Patient reports that around 4 AM he was woken from sleep with a 10/10 left-sided chest/left upper quadrant abdominal pain radiating up to his throat/neck. He took a tablet of sublingual nitroglycerin that improved his pain to an 8/10 and subsequently called EMS where he was brought to the [place] [facility]. In the ED he received full strength aspirin, acetaminophen 1 g IV, Toradol 30 mill grams IV, sublingual nitroglycerin, and nitroglycerin paste that reduce his pain to a 4/10 collectively. Presently patient states that he has persistent chest discomfort that is worse with movement, deep breathing, and when he presses on his chest. He denies any cold sweats, heartburn, palpitations, or nausea. He has yet to follow-up with his account executive for an outpatient stress test. He reports that he has been compliant with his medications. Review of systems He otherwise denies any fever, chills, blurred/double vision, lightheadedness/ dizziness, shortness of breath, vomiting, constipation. Objective Vital signs-temp 99.0-99.4, HR 69-75, RR 18-20, BP 109-124/59-75, SPO2 is 95-96% on room air Physical exam -General: Well-developed, morbidly obese middle-aged black man in no acute distress -HEENT: NCAT, [place], EOMI, anicteric sclera, moist mucous membranes -Neck: Supple, no JVD, trachea midline -Cardio: Normal S1/S2 without murmurs/gallops/rubs; regular rate and rhythm -Chest: Moderate tenderness to left sternal border/left chest without deformity -Pulmonary: Clear to auscultation bilaterally -Abdomen: Moderate/severe left upper quadrant tenderness with visible muscle spasm without guarding or rigidity, visible midline ventral hernia extending to the left abdominal wall, soft, nondistended, bowel sounds intact -Neuro: Awake and alert, cranial nerves II through XII grossly intact -Extremities: Normal pulses, no edema Diagnostics -CBC: WBC 11.2, hemoglobin 13.8, hematocrit 41.7, platelet 376 -BMP: Sodium 136, potassium 4.2, chloride 103, CO2 23, BUN 29, creatinine 1.3, anion gap 10, glucose 247 -LFT: Within normal limits -Miscellaneous: Lipase 401, troponin I <0.01, d-dimer <200 -EKG: Normal sinus rhythm with age-indeterminate inferior wall NH, poor R-wave progression -Chest x-ray:No acute cardiopulmonary findings. Assessment 53-year-old man with multiple medical problems and significant cardiovascular history seen for evaluation of acute onset substernal chest pain relieved with nitroglycerin and left upper quadrant abdominal pain. Presently patient admits to persistent chest pain despite multiple interventions. Vital signs remain within normal limits. Physical examination demonstrates tenderness to his sternum, left chest wall, and left upper quadrant of his abdomen. Labs including CBC, serum chemistry are significant for WBC 11.2, creatinine 1.3, glucose 247. Troponin I and d-dimer are negative. Lipase 401. Clinically patient appears to have pleuritic, positional, and reproducible chest /left upper quadrant abdominal pain to palpation. This may represent an underlying inflammatory condition such as costochondritis. Patient cannot take NSAIDs due to his chronic kidney disease. Caution should be used when utilizing steroids given his poorly controlled insulin-dependent diabetes mellitus. His abdominal pain with obvious muscle spasm and visible ventral hernia suggests he may have a significant hernia that may require outpatient repair. Given his moderate/high pretest probability for coronary events he is being admitted to the telemetry floor for telemetry monitoring, serial troponin/EKG, and cardiology consultation. Problem list -Chest pain reproducible to palpation, probable costochondritis -left upper quadrant abdominal pain with visible spasm, possible underlying hernia -hypertension -Hyperlipidemia -Insulin-dependent diabetes mellitus -CKD -Obesity -History of nephrolithiasis -Anxiety/depression -History of medication noncompliance -Reported history of cardiac arrest/myocardial infarction (2001) Plan -Admit to telemetry -Telemetry monitoring -Accu-Cheks 3 times daily before meals/at bedtime -Avoid NSAIDs for history of CKD -Continue home meds: Amlodipine, aspirin, buspirone, vitamin D, dicyclomine, gabapentin, NovoLog, pantoprazole, Paxil, pravastatin, Zoloft -Hold Tresiba while inpatient -Consult with cardiology for chest pain -Serial troponin/EKG until peak or 3 negative sets -Check UA/Utox -Consider CT abdomen/pelvis when available -Pain control with acetaminophen -Heart healthy diet -DVT prophylaxis with subcutaneous heparin -Full code -Outpatient stress test Allergies/Medications Allergies: Coded Allergies: lisinopril (Severe, ANGIO EDEMA AND LIP SWELLING 05/19/16) STATINS (ATTACKS BLOOD CELLS 05/17/17) bupropion (UNKNOWN 04/20/18) metformin (kidney damage 12/13/16) atorvastatin (From LIPITOR) (Intermediate, TIRED AND ATTACKS MY BLOOD CELLS 12/30) Home Med list Amlodipine Besylate 10 MG TABLET 1 TAB PO DAILY HEART (Reported) Aspirin (Lo-Dose Aspirin EC) 81 MG TABLET.DR 1 TAB PO DAILY heart (Reported) Buspirone HCl 15 MG TABLET 1 TAB PO TID MENTAL HEALTH (Reported) Cholecalciferol (Vitamin D3) (Vitamin D) 2,000 UNIT CAPSULE 1 CAP PO DAILY SUPPLEMENT (Reported) Dicyclomine HCl 10 MG CAPSULE 1 CAP PO TID BOWEL [id number] (Reported) Gabapentin 100 MG CAPSULE 1 CAP PO TID PERIPERAL NEUROPATHY (Reported) Gemfibrozil 600 MG TABLET 1 TAB PO BID CHOLESTEROL (Reported) Insulin Aspart (Novolog) 100 UNIT/ML VIAL 1 INJ SC AC & AT BEDTIME DIABETES ( Reported) Insulin Degludec (Tresiba Flextouch U-100) 100 UNIT/ML (3 ML) INSULN.PEN 18 UNITS SQ QHS DIABETES (Reported) Nitroglycerin 0.4 MG TAB.SUBL 1 TAB SL DAILY PRN CHEST PAIN (Reported) 1st sign of attack; may repeat every 5 minutes until relief; if pain persists after 3 tablets in 15 minutes, prompt medical att Pantoprazole Sodium 40 MG TABLET.DR 1 TAB PO DAILY GI (Reported) Paroxetine HCl (Paxil) 40 MG TABLET 1 TAB PO DAILY MENTAL HEALTH (Reported) Pravastatin Sodium 40 MG TABLET 1 TAB PO QPM CHOLESTEROL (Reported) Sertraline HCl (Zoloft) 100 MG TABLET 2 TAB PO QPM MENTAL HEALTH (Reported) Past History Travel History Traveled to [place] past 21 day No Medical History Neurological: NONE EENT: NONE, glaucoma Cardiovascular: hyperlipidemia, myocardial infarction Respiratory: NONE Gastrointestinal: NONE Hepatic: NONE Renal: NONE Musculoskeletal: NONE Psychiatric: anxiety, depression Endocrine: diabetes Blood Disorders: NONE Cancer(s): NONE LEAD CASE MANAGER/Reproductive: NONE History of MRSA: No History of VRE: No History of CDIFF: No Surgical History Surgical History: lumpectomy, ART R KNEE Past Family/Social History Family History Relations & Conditions if any FATHER FH: hypertension Relation not specified for: Diabetes mellitus in brother Stroke or transient ischemic attack in mother Type 2 diabetes mellitus in sister Psychosocial History ETOH Use: denies use Illicit Drug Use: denies illicit drug use Living Will? Full code status Functional Ability ADLs Independent: dressing, eating, toileting, bathing. Ambulation: independent, cane IADLs Independent: shopping, housework, finances. Review of Systems Review of Systems Constitutional: Reports: see HPI. Exam & Diagnostic Data Last 24 Hrs of Vital Signs/I&O Vital Signs Date Time Temp Pulse Resp B/P B/P Pulse O2 O2 Flow FiO2 Mean Ox Delivery Rate 06/15 0844 97.7 70 18 122/86 96 Room Air 06/15 0637 99.0 73 20 110/61 96 Room Air 06/15 0536 75 20 109/59 95 Room Air 06/15 0453 99.4 69 18 124/75 96 Room Air Intake & Output 06/15 1600 06/15 0800 06/15 0000 Intake Total 0 Output Total Balance 0 Intake, Oral 0 Patient 146.057 kg Weight Weight Reported by Patient Measurement Method Assessment/Plan As Ranked By This Provider Problem List: 1. Chest pain, unspecified Core Measures/Misc (07/03) Acute Coronary Syndrome ACS Diagnosis: No Congestive Heart Failure Congestive Heart Failure Diagnosis No Cerebrovascular Accident CVA/TIA Diagnosis: No VTE (View Protocol) VTE Risk Factors Age>40 No Mechanical VTE Prophylaxis d/t N/A MechProphylax Ordered No VTE Pharm Prophylaxis d/t NA PharmProphylax ordered Sepsis (View protocol) Sepsis Present: No If YES complete Sepsis Event Note If YES complete Sepsis Event Note Renate Robles 06/15/18 1532: Core Measures/Misc (07/03) Sepsis (View protocol) If YES complete Sepsis Event Note If YES complete Sepsis Event Note Attending MD Review Statement Attending Statement Attending MD Statement: examined this patient, discuss w/resident/PA/AIRCRAFT DE ICER INSTALLER, agreed w/resident/PA/AIRCRAFT DE ICER INSTALLER, reviewed EMR data (avail), discussed with nursing Attending Assessment/Plan: 53 yr old male with pmh of morbid obesity and other medical issues - IDDM, CKD, CAD, HTN, HLD who presented to er with chest pain which woke him up in the morning but currently patient is chest pain free and is complaining more of abdomnal pain on the left side which he says has been ongoing for 1 year. He had workup wiht Dr Romero which i reviewed and was negative . For his chest pain we will monitor him on telemetry, do serial trop and get cardiac consult, get echo and will repeat ekg in case he has chest pain again. cont on asprin for now. await cardiac input . will get U tox. abdominal pain- pt has been worked up previously and his pain is chronic and unchanged. so will have him f/u with GI as outpatient. In case pain gets worse, we will get GI consult
[2018-06-15 08:44] VITALS: BP 122/86
[2018-06-15 14:34] VITALS: BP 118/76; BP 142/76
--- NOTE | 2018-06-15 15:26 | Admission Certification ---
Admission Certification Certification Statement - As attending physician, I certify that at the time of - admission, based on clinical presentation, severity of - symptoms, need for further diagnostic testing and - therapeutic interventions, and risk of adverse outcomes - without in-hospital treatment, in my clinical assessment, - this patient requires an acute hospital stay for a minimum - of two nights or longer. I have also considered psychsocial - factors such as support system, advanced age, financial - issues, cognitive issues, and failed out-patient treatments, - past re-admission history, safety of patient, and lack of - compliance as applicable. Specific rationale supporting this admission is: chest pain and abdominal pain
--- NOTE | 2018-06-15 21:39 | Cons- Cardiology ---
General Information and HPI Consulting Request Date of Consult: 06/15/18 Requested By: Margaret MCKINNON,Renate Ramirez History of Present Illness: Braxton is a 53 year old male with history of hypertension, dyslipidemia, diabetes and overweight. He also carries a history of renal insufficiency and diverticulosis. He was recently seen in [facility] with chest pain and was recommended to be risk stratified with a stress test but he refused to show up for this study. He carries a vague history of "heart attack" around 2001. Mr. Ramirez presented to the ER for evaluation of a severe left upper abdominal discomfort that radiated toward his chest. It is non-exertional but is positional and is exacerbated by lying on his left side and deep inspiration. The discomfort did radiate toward his throat and neck. There was no significant improvement with NTG. His last pharmacologic stress test was performed in 2016 and was negative for ischemia. Some diaphragmatic attenuation was noted. His echocardiogram showed a normal EF of 60%. Allergies/Medications Allergies: Coded Allergies: lisinopril (Severe, ANGIO EDEMA AND LIP SWELLING 05/19/16) STATINS (ATTACKS BLOOD CELLS 05/17/17) bupropion (UNKNOWN 04/20/18) metformin (kidney damage 12/13/16) atorvastatin (From LIPITOR) (Intermediate, TIRED AND ATTACKS MY BLOOD CELLS 12/30) Home Med List: Amlodipine Besylate 10 MG TABLET 1 TAB PO DAILY HEART (Reported) Aspirin (Lo-Dose Aspirin EC) 81 MG TABLET.DR 1 TAB PO DAILY heart (Reported) Buspirone HCl 15 MG TABLET 1 TAB PO TID MENTAL HEALTH (Reported) Cholecalciferol (Vitamin D3) (Vitamin D) 2,000 UNIT CAPSULE 1 CAP PO DAILY SUPPLEMENT (Reported) Dicyclomine HCl 10 MG CAPSULE 1 CAP PO TID BOWEL [id number] (Reported) Gabapentin 100 MG CAPSULE 1 CAP PO TID PERIPERAL NEUROPATHY (Reported) Gemfibrozil 600 MG TABLET 1 TAB PO BID CHOLESTEROL (Reported) Insulin Aspart (Novolog) 100 UNIT/ML VIAL 1 INJ SC AC & AT BEDTIME DIABETES ( Reported) Insulin Degludec (Tresiba Flextouch U-100) 100 UNIT/ML (3 ML) INSULN.PEN 18 UNITS SQ QHS DIABETES (Reported) Nitroglycerin 0.4 MG TAB.SUBL 1 TAB SL DAILY PRN CHEST PAIN (Reported) 1st sign of attack; may repeat every 5 minutes until relief; if pain persists after 3 tablets in 15 minutes, prompt medical att Pantoprazole Sodium 40 MG TABLET. 1 TAB PO DAILY GI (Reported) Paroxetine HCl (Paxil) 40 MG TABLET 1 TAB PO DAILY MENTAL HEALTH (Reported) Pravastatin Sodium 40 MG TABLET 1 TAB PO QPM CHOLESTEROL (Reported) Sertraline HCl (Zoloft) 100 MG TABLET 2 TAB PO QPM MENTAL HEALTH (Reported) Review of Systems Review of Systems: A review of systems is unremarkable. 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 Home Smoking Status: Never Smoked ETOH Use: denies use Illicit Drug Use: denies illicit drug use Living Will? Full code status Functional Ability ADLs Independent: dressing, eating, toileting, bathing. Ambulation: independent, cane IADLs Independent: shopping, housework, finances. Exam & Diagnostic Data Vital Signs and I&O Vital Signs Date Time Temp Pulse Resp B/P B/P Pulse O2 O2 Flow FiO2 Mean Ox Delivery Rate 06/15 1434 97.6 67 18 118/76 95 Room Air 06/15 1056 66 118/60 06/15 0844 97.7 70 18 122/86 96 Room Air 06/15 0637 99.0 73 20 110/61 96 Room Air 06/15 0536 75 20 109/59 95 Room Air 06/15 0453 99.4 69 18 124/75 96 Room Air Intake & Output 06/15 1600 06/15 0000 06/14 1600 06/14 0000 Intake Total 600 0 Output Total Balance 600 0 Intake, Oral 600 0 Patient 322 lb 322 lb Weight Weight Bed scale Reported by Patient Measurement Method Physical Exam: General: WD/obese male in NAD; alert and oriented x 3 HEENT: NC/AT, PERRL, EOMI Neck: no JVD Heart: RRR Lungs: clear bilaterally Abdomen: soft, obese, NT, +ve bowel sounds Extremities: no edema Assessment/Plan Assessment/Plan * This patient has multiple risk factors for coronary artery disease but his chest discomfort was atypical with normal cardiac enzymes despite prolonged discomfort and no ECG changes. He also had a stress test within the year that was negative for ischemia. I do not think his pain is cardiac but rather feel that it is discomfort radiating from his upper abdomen. We should treat his risk factors aggresively and I would continue a statin. Risk stratification with a stress test is recommended. Consult Acknowledgment - Thank you for your consult request.
[2018-06-15 22:08] VITALS: BP 130/80
[2018-06-16 06:51] VITALS: BP 110/70
[2018-06-16 07:52] LABS: ABSOLUTE BASOPHIL COUNT 0 /CUMM (0.0-0.2); ABSOLUTE EOSINOPHIL COUNT 0 /CUMM (0.0-0.7); ABSOLUTE GRANULOCYTE CT 5.2 /CUMM (1.4-6.5); ABSOLUTE LYMPH COUNT 3.4 /CUMM (1.2-3.4); ABSOLUTE MONOCYTE COUNT 0.4 /CUMM (0.10-0.60); BASOPHIL % 0.3 % (0.0-2.0); EOSINOPHIL % 0.4 % (0-5); GRANULOCYTE % 57.1 % (42.2-75.2); HEMATOCRIT 44.6 % (42-52); MEAN CORPUSCULAR HGB 27.1 PG (27.0-31.0); MEAN CORPUSCULAR HGB CONC 32.3 G/DL (33.0-37.0); MEAN CORPUSCULAR VOLUME 84.2 FL (80.0-94.0); MEAN PLATELET VOLUME 9.4 FL (7.4-10.4); PLATELET COUNT 356 /CUMM (130-400); RBC DISTRIBUTION WIDTH 13.6 % (11.5-14.5); WHITE BLOOD CELL COUNT 9.1 /CUMM (4.8-10.8)
--- NOTE | 2018-06-16 08:25 | PN- Housestaff ---
Dorian Bergman 06/16/18 0805: Subjective Follow-up For: Chest pain, pleuritic and positional Left upper quadrant abdominal pain Hx. HTN Hx. of HLD Hx. IDDM Subjective: Afebrile overnight. Patient is seen and examined this morning. Patient is lying on his right side this morning because he states it relieves the pain and pressure on his left side. Patient states he did not have any chest pain, palpitations, or shortness of breath overnight. Patient however does complain of abdominal pain, mostly to palpation, in the left upper quadrant that is also present in his left upper back. Patient states he follows up with Dr. Romero as an outpatient basis. Patient otherwise denies any dysuria, frequency, urgency, hematuria, n/v, diarrhea, constipation, fevers, chills, and fatigue. Review of Systems Constitutional: Reports: see HPI. Objective Last 24 Hrs of Vital Signs/I&O Vital Signs Date Time Temp Pulse Resp B/P B/P Pulse O2 O2 Flow FiO2 Mean Ox Delivery Rate 06/16 0651 98.1 49 18 110/70 96 Room Air 06/15 2208 97.7 53 18 130/80 95 Room Air 06/15 1434 97.6 67 18 118/76 95 Room Air 06/15 1056 66 118/60 06/15 0844 97.7 70 18 122/86 96 Room Air Intake & Output 06/16 1600 06/16 0800 06/16 0000 Intake Total 120 500 Output Total Balance 120 500 Intake, Oral 120 500 Patient 326 lb Weight Weight Bed scale Measurement Method Physical Exam General Appearance: Alert, Oriented X3, Cooperative, No Acute Distress Skin: No Rashes, No Breakdown HEENT: Atraumatic Neck: Supple, No JVD Cardiovascular: Regular Rate, Normal S1, Normal S2 Lungs: Clear to Auscultation Abdomen: Soft, tenderness to palpation in the left upper abdominal region extending to the mid left back area Neurological: Normal Speech Extremities: No Edema, Normal Pulses Assessment/Plan Assessment: CXR - No acute cardiopulmonary findings. 53-year-old man with past medical history of CAD, hypertension, hyperlipidemia, obesity, insulin-dependent diabetes mellitus, CKD, anxiety, depression, medication noncompliance, and reported myocardial infarction/cardiac arrest ( 2001) brought in by ambulance for evaluation of chest pain. Clinically patient appears to have pleuritic, positional, and reproducible chest /left upper quadrant abdominal pain to palpation. This may represent an underlying inflammatory condition such as costochondritis. Patient cannot take NSAIDs due to his chronic kidney disease. Caution should be used when utilizing steroids given his poorly controlled insulin-dependent diabetes mellitus. His abdominal pain with obvious muscle spasm and visible ventral hernia suggests he may have a significant hernia that may require outpatient repair. Given his moderate/high pretest probability for coronary events he is being admitted to the telemetry floor for telemetry monitoring, serial troponin/EKG, and cardiology consultation. Problem list: -Chest pain reproducible to palpation, probable costochondritis -Left upper quadrant abdominal pain with visible spasm, possible underlying hernia -Hypertension -Hyperlipidemia -Insulin-dependent diabetes mellitus -CKD Stage 3A-3B -Obesity -History of Nephrolithiasis -Anxiety/depression -History of medication noncompliance -Reported history of cardiac arrest/myocardial infarction (2001) #Aytpical chest pain, positional and pleuritic -Admitted to telemetry for monitoring and observation of vitals -Serial Trops/EKG, Trop 3x negative -ECHO previously completed 05/03 with an EF of 60% -Consulted with cardiology for chest pain; cardiology do not consider current pain is cardiac in origin -Outpatient stress test 11/02 that was negative for any ischemia; cardiology recommend follow up stress up as an outpatient basis -Aspirin 81 mg -Accu-Cheks 3 times daily before meals/at bedtime -Avoid NSAIDs for history of CKD 3A-3B -Utox; pending test result -Consider CT abdomen/pelvis if abdominal pain persists -Pain control with acetaminophen -Furthermore patient followed by Cardiology who recommend to follow up outpatient for a stress test if chest pain persists, and to follow up with GI to workup left upper quadrant gastrointestinal component to patient's presentation. #Home medications -Continue home medications including Amlodipine, Aspirin, buspirone, vitamin D, dicyclomine, gabapentin, NovoLog, pantoprazole, Paxil, pravastatin, Zoloft DVT prophylaxis: subcutaneous heparin Heart healthy diet FC Problem List: 1. Atypical chest pain 2. Diabetes 3. Chronic kidney disease (CKD) Pain Ratin Pain Location: left upper quadrant abdominal pain Pain Goal: Pain 4 or less Pain Plan: prn pain meds Tomorrow's Labs & Rationales: routine Renate Robles 06/16/18 1128: Attending MD Review Statement Attending Statement Attending MD Statement: examined this patient, discuss w/resident/PA/CARTOGRAPHIC DESIGNER, agreed w/resident/PA/CARTOGRAPHIC DESIGNER, reviewed EMR data (avail), discussed with nursing, discussed with case mgmt Attending Assessment/Plan: Chest pain- atypical. Resolved now. Plan will be to discharge him today on asa and statin. Abdomninal pain- f/u with Dr Romero as an outpatinet. pt has chronic abdominal pain and had workup done in past year which was all negative. Obesity- pt encouraged to loose weight. Has appointment with parachute folder as an outpatient.
--- NOTE | 2018-06-16 08:26 | Discharge Summary ---
Visit Information Visit Dates Admission Date: 06/15/18 Discharge Date: 06/16/18 Hospital Course Course Attending Physician: Margaret MCKINNON,Renate Ramirez Primary Care Physician: Sara Parsons APRN [facility] Course: 53-year-old man with past medical history of CAD, hypertension, hyperlipidemia, obesity, insulin-dependent diabetes mellitus, CKD, anxiety, depression, medication noncompliance, and reported myocardial infarction/cardiac arrest ( 2001) brought in by ambulance for evaluation of chest pain. Clinically patient appeared to have pleuritic, positional, and reproducible chest/left upper quadrant abdominal pain to palpation. This may represent an underlying inflammatory condition such as costochondritis. Patient cannot take NSAIDs due to his chronic kidney disease. Caution should be used when utilizing steroids given his poorly controlled insulin-dependent diabetes mellitus. His abdominal pain with obvious muscle spasm and visible ventral hernia suggests he may have a significant hernia that may require outpatient repair. Given his moderate/high pretest probability for coronary events he is being admitted to the telemetry floor for telemetry monitoring, serial troponin/EKG, and cardiology consultation. Problem list: -Chest pain reproducible to palpation, probable costochondritis -Left upper quadrant abdominal pain with visible spasm, possible underlying hernia -Hypertension -Hyperlipidemia -Insulin-dependent diabetes mellitus -CKD Stage 3A-3B -Obesity -History of Nephrolithiasis -Anxiety/depression -History of medication noncompliance -Reported history of cardiac arrest/myocardial infarction (2001) 1. Aytpical chest pain, positional and pleuritic -Patient was admitted to telemetry for monitoring and observation of vitals -Serial Trops/EKG, Trop 3x negative -ECHO previously completed on 05/03 with an Ejection Fraction of 60% -Consulted with cardiology for chest pain; cardiology do not consider current pain is cardiac in origin -Outpatient stress test performed on 11/02 that was negative for any ischemia; cardiology recommend follow up stress up as an outpatient basis -Aspirin 81 mg for cardiac benefit -Accu-Cheks 3 times daily before meals/at bedtime -Avoid NSAIDs for history of CKD 3A-3B -Utox; negative test result -Consider CT abdomen/pelvis if abdominal pain persists -Pain control with acetaminophen -Furthermore patient was followed by Cardiology who recommended to follow up outpatient for a stress test if chest pain persists, and to follow up with GI to workup left upper quadrant gastrointestinal component to patient's presentation. Allergies: Coded Allergies: lisinopril (Severe, ANGIO EDEMA AND LIP SWELLING 05/19/16) STATINS (ATTACKS BLOOD CELLS 05/17/17) bupropion (UNKNOWN 04/20/18) metformin (kidney damage 12/13/16) atorvastatin (From LIPITOR) (Intermediate, TIRED AND ATTACKS MY BLOOD CELLS 12/30) Significant Procedures: CXR - No acute cardiopulmonary findings. Disposition Summary Disposition Principal Diagnosis: Atypical chest pain, positional and pleuritic Additional Diagnosis: Hx. of IDDM Hx. of HTN Hx. of HLD Discharge Disposition: home or self care Discharge Instructions General Discharge Information Code Status: Full Code Patient's Diet: diabetic Patient's Activity: ad raymundo Follow-Up Instructions/Appts: Please follow up with your PCP within one week. Please follow up with your Egg Worker within one week. Please follow up with a Rocket Engine Component Mechanic within two weeks. Please continue to take your home medications. Medications at Discharge Discharge Medications: Continue taking these medications: Gabapentin (Gabapentin) 100 MG CAPSULE 1 Capsule ORAL THREE TIMES DAILY Qty = 180 Comments: Last Taken: 06/16/18 Time: 9:00 AM Aspirin (Lo-Dose Aspirin EC) 81 MG TABLET.DR 1 Tablet ORAL DAILY Qty = 30 Comments: Last Taken: 06/16/18 Time: 9:00 AM Gemfibrozil (Gemfibrozil) 600 MG TABLET 1 Tablet ORAL TWICE DAILY Qty = 180 Comments: NOT GIVEN IN HOSPITAL Sertraline HCl (Zoloft) 100 MG TABLET 2 Tablet ORAL Every night Comments: Last Taken: 06/15/18 Time: 9:30 PM Buspirone HCl (Buspirone HCl) 15 MG TABLET 1 Tablet ORAL THREE TIMES DAILY Comments: Last Taken: 06/16/18 Time: 9:00 AM Pantoprazole Sodium (Pantoprazole Sodium) 40 MG TABLET.DR 1 Tablet ORAL DAILY Qty = 60 Comments: Last Taken: 06/16/18 Time: 6:00 AM SUBSTITUTED WITH PRILOSEC Cholecalciferol (Vitamin D3) (Vitamin D) 2,000 UNIT CAPSULE 1 Capsule ORAL DAILY Comments: Last Taken: 06/16/18 Time: 9:00 AM Dicyclomine HCl (Dicyclomine HCl) 10 MG CAPSULE 1 Capsule ORAL THREE TIMES DAILY Comments: Last Taken: 06/16/18 Time: 9:00 AM Paroxetine HCl (Paxil) 40 MG TABLET 1 Tablet ORAL DAILY Qty = 30 Comments: Last Taken: 06/16/18 Time: 9:00 AM Amlodipine Besylate (Amlodipine Besylate) 10 MG TABLET 1 Tablet ORAL DAILY Qty = 30 Comments: Last Taken: 06/16/18 Time: 9:00 AM Pravastatin Sodium (Pravastatin Sodium) 40 MG TABLET 1 Tablet ORAL Every night Qty = 90 Comments: Last Taken: 06/16/18 Time: 9:00 AM Nitroglycerin (Nitroglycerin) 0.4 MG TAB.SUBL 1 Tablet SUBLINGUAL DAILY as needed for CHEST PAIN Qty = 25 Instructions: 1st sign of attack; may repeat every 5 minutes until relief; if pain persists after 3 tablets in 15 minutes, prompt medical att Comments: Last Taken: 06/15/18 Time: 5:15 AM Insulin Aspart (Novolog) 100 UNIT/ML VIAL 1 Inj SC BEFORE MEALS AND AT BEDTIME Qty = 1 Comments: Last Taken: 06/16/18 Time: 12:30 PM BEFORE MEALS 80-100->10 101-120->10 121->150->10 151-200->12 201-250->14 251-300->16 301-350->18 351-400->20 >400->22 BED TIME 80-100- NO COVERAGE 101-120->NO 121-150->NO 151-200->NO 201-250->2 UNITS 251-300->3 301-350->4 351-400->5 >400->6 Insulin Degludec (Tresiba Flextouch U-100) 100 UNIT/ML (3 ML) INSULN.PEN 18 Units SUB-Q TAKE AT BEDTIME Comments: Last Taken: 06/16/18 Time: 9:00 AM SUBSTITUTED WITH LEVEMIR Copies To: Sara Parsons APRN Attending Review Statement Documenting Attending: Margaret MCKINNON,Renate Ramirez
--- NOTE | 2018-06-16 08:29 | Patient Discharge Instructions ---
Discharge Instructions General Discharge Information You were seen/treated for: Chest Pain Abdominal pain, Left upper quadrant You had these procedures: ECG CXR Watch for these problems: If you experience any worsening abdominal pain, chest pain, shortness of breath, fevers, chills, fatigue please follow up with your PCP. Special Instructions: Please follow up with your PCP within one week. Please follow up with your Sheetmetal Patternmaker within one week. Please follow up with a Metal Products Viewer within two weeks. Please follow up with a General surgeon within two weeks. Please continue to take your home medications. Diet Continue normal diet: No Recommended Diet: Diabetic Activity Full Activity/No Limits: No Activity Self Limited: Yes Acute Coronary Syndrome Inclusion Criteria At DC or during hospital stay patient has or had the following: ACS DIAGNOSIS No Discharge Core Measures Meds if any: Prescribed or Continued at Discharge Meds if any: NOT Prescribed or Continued at Discharge Congestive Heart Failure Inclusion Criteria At DC or during hospital stay patient has or had the following: CHF DIAGNOSIS No Discharge Core Measures Meds if any: Prescribed or Continued at Discharge Meds if any: NOT Prescribed or Continued at Discharge Cerebrovascular accident Inclusion Criteria At DC or during hospital stay patient has or had the following: CVA/TIA Diagnosis No Discharge Core Measures Meds if any: Prescribed or Continued at Discharge Meds if any: NOT Prescribed or Continued at Discharge Venous thromboembolism Inclusion Criteria VTE Diagnosis No VTE Type NONE VTE Confirmed by (Test) NONE Discharge Core Measures - Per Current guidelines, there needs to be overlap - treatment for the first 5 days of Warfarin therapy. - If discharged on Warfarin prior to 5 days of - overlap therapy, the patient will need to be - assessed for post discharge needs including - *Post discharge parental anticoagulation - *Warfarin and/or parental anticoagulation education - *Follow up date to check INR post discharge At least 5 days overlap therapy as Inpatient No Meds if any: Prescribed or Continued at Discharge Note: Overlap Therapy is Warfarin and Anticoagulant Meds if any: NOT Prescribed or Continued at Discharge
[2018-06-16 09:04] VITALS: BP 110/70
== END 2018-06-16 14:15 | DRG 198 ==
LOC: ERH 04:46 → 1NO 06:25 → ERHI 06:25 → ENRESERV 07:01 → ENTRNSPT 08:03 → EDTRNSPTSTS 08:08 → EDTRNSPT 08:08 → 1NO 08:17 → CMPTRNSPT 08:49 → 1NO 10:15 → ENPENDDIS 10:27 → 1NO 06-16 14:15
PROVIDERS: Internal Medicine Interventional Cardiology; Pediatrics
DX: R07.89 Other chest pain (principal); I25.10 Atherosclerotic heart disease of native coronary artery without angina pectoris; Z86.74 Personal history of sudden cardiac arrest; E66.01 Morbid (severe) obesity due to excess calories; Z68.41 Body mass index [BMI] 40.0-44.9, adult; N18.3 Chronic kidney disease, stage 3 (moderate); E11.22 Type 2 diabetes mellitus with diabetic chronic kidney disease; F32.9 Major depressive disorder, single episode, unspecified; Z91.14 Patient's other noncompliance with medication regimen; E78.5 Hyperlipidemia, unspecified; I25.2 Old myocardial infarction; F41.9 Anxiety disorder, unspecified; R10.12 Left upper quadrant pain; H40.9 Unspecified glaucoma; I12.9 Hypertensive chronic kidney disease with stage 1 through stage 4 chronic kidney disease, or unspecified chronic kidney disease; K43.9 Ventral hernia without obstruction or gangrene; Z79.4 Long term (current) use of insulin; Z88.8 Allergy status to other drugs, medicaments and biological substances
CPT/HCPCS: 1NSP; 36592; 71045; 80307; 82436; 93005; 93010; 96374; 96375; J0131; J1644; J1885; J3490